=== PATIENT | female | born 1945 | race African-American/Black ===

== ENCOUNTER → 2016-11-02 | Day surgery (SDC) | payer OTHER ==
--- NOTE | 2016-11-03 15:18 | PATH ---
Surgical Pathology Report Patient Name: JOLENE CARDENAS Med. Rec. #: [id number] /Age/Gender: 1945 (Age: 71) / F Account: [id number] Location: [facility] RADIOLOGY U Taken: 11/02/2016 Received: 11/02/2016 Reported: 11/03/2016 Physicians: Belle Zavala Specimen(s) Received LEFT BREAST CORE BIOPSY 11 O'CLOCK, 16CM FN Clinical History US: probably benign; heterogenous mass, 11o'clock, left, 16 cm from nipple; probable lipoma Final Diagnosis BREAST, LEFT, 11:00, 6 CM FROM NIPPLE, US GUIDED CORE BIOPSY: BENIGN APPEARING MATURE ADIPOSE TISSUE WITH FOCI OF FAT NECROSIS AND SMALL FOCUS OF BENIGN GLANDULAR BREAST TISSUE (SEE COMMENT). Comment: The findings may represent lipoma with degenerative changes in proper clinical and imaging settings. Note: Immunohistochemical stain for Ae1/Ae3 keratin performed and interpreted [facility] is negative, supporting the interpretation above. Electronically Signed Srinivasa Khan M.D. Gross Description Received in formalin, labeled "left breast 11:00 16 cm FN" are multiple cylindrical fragments of salas-yellow and salas-pink soft tissue ranging from 0.2-1.5 cm in greatest dimension. Time to fixation: 2 min Formalin fixation time: ~6h AF/11/02/2016
== END | disposition home or self-care (01) ==
LOC: FRADUS-SUR 11:51
PROVIDERS: ATTEND Specialist
PROC: 0HBU3ZX Excision of Left Breast, Percutaneous Approach, Diagnostic (ICD-10-PCS; principal; 2016-11-02)
DX: N63 Unspecified lump in breast (principal); N64.1 Fat necrosis of breast
CPT/HCPCS: 19083; 87899; 88305-TC; 88342-TC; A4648

== ENCOUNTER 2018-04-08 14:17 | Inpatient (IN) | payer OTHER ==
--- NOTE | 2018-04-08 14:44 | PDOC ---
History of Present Illness - General Chief Complaint: Shortness of Breath Stated Complaint: DIFFICULTY BREATHING Time Seen by Provider: 04/08/18 14:38 History Source: Patient Exam Limitations: No Limitations Past History - Past Medical History Allergies/Adverse Reactions: Allergies Allergy/AdvReac Type Severity Reaction Status Date / Time No Known Allergies Allergy Verified 04/08/18 14:37 Home Medications: Ambulatory Orders Nateglinide [Starlix] 0 mg PO TID 11/12/13 Allopurinol [Zyloprim -] 100 mg PO DAILY #0 tablet 11/21/13 Amlodipine Besylate [Norvasc -] 5 mg PO DAILY #0 tablet 11/21/13 Atorvastatin Ca [Lipitor] 20 mg PO HS #0 tablet 11/21/13 Brimonidine Tartrate [Alphagan P 0.1% -] 1 drop OU BID #0 drops 11/21/13 Budesonide/Formeterol Fumarate [SYMBICORT 160/4.5mcg -] 2 inh IH BID #0 inhaler 11/21/13 Clopidogrel Bisulfate [Plavix -] 75 mg PO DAILY #0 tablet 11/21/13 Dorzolamide HCl [Trusopt 2% -] 1 drop OU BID #0 drops 11/21/13 Loratadine [Claritin -] 10 mg PO DAILY #0 tablet 11/21/13 Timolol 0.5% [Timoptic 0.5%] 1 drop OU BID #0 drops 11/21/13 Valsartan [Diovan] 320 mg PO DAILY #0 tablet 11/21/13 metFORMIN HCL [Glucophage -] 500 mg PO BID #14 tablet 11/21/13 Colchicine [Colcrys] 0.6 mg PO BID 11/15/14 Furosemide [Lasix -] 40 mg PO DAILY 11/15/14 Omeprazole [Prilosec (RX)] 20 mg PO DAILY 11/15/14 Tramadol HCl 50 mg PO BID 11/15/14 Albuterol 0.083% Nebulizer Elizabeth [Ventolin 0.083% Nebulizer Soln -] 1 neb NEB Q6H PRN 02/02/15 Acetaminophen [Tylenol .Extra-Strength -] 1,000 mg PO Q6H PRN #24 tablet Asthma: Yes COPD: No Diabetes: Yes HTN: Yes Hypercholesterolemia: Yes - Suicide/Smoking/Psychosocial Hx Smoking Status: No Smoking History: Never smoked Have you smoked in the past 12 months: No Number of Cigarettes Smoked Daily: 0 Information on smoking cessation initiated: No Hx Alcohol Use: No Drug/Substance Use Hx: No Substance Use Type: None Hx Substance Use Treatment: No *Physical Exam - Vital Signs Last Vital Signs Temp Pulse Resp BP Pulse Ox 97.4 F L 87 22 161/98 68 L 04/08/18 14:38 04/08/18 14:38 04/08/18 14:38 04/08/18 14:38 04/08/18 14:38 *DC/Admit/Observation/Transfer - Referrals Referrals: Sam Santana MD [Primary Care Provider] - - Patient Instructions - Post Discharge Activity
[2018-04-08] MEDS ORDERED: ALBUTEROL SO4 2.5/IPRATROPIUM 0.5 INH SOL 3 ML VIAL.NEB. NEB ONE ×4 (14:47→17:12)
[2018-04-08] MEDS: ALBUTEROL SO4 2.5/IPRATROPIUM 0.5 INH SOL 3 ML VIAL.NEB. NEB ONE (14:54)
[2018-04-08 15:30] LABS: ALLENS TEST POSITIVE; ARTERIAL BLD GAS O2 SATURATION 90.8 % (90-98.9); ARTERIAL BLOOD GAS BASE EXCESS 6.2 meq/l (-2-2); ARTERIAL BLOOD GAS PO2 60.7 mmHg (70-100)
[2018-04-08] MEDS ORDERED: MAGNESIUM SULF 50% (8.12 MEQ/2 ML-1 GM VIAL) IVPB ONE ×2 (16:05→17:14)
--- NOTE | 2018-04-08 16:07 | PDOC ---
Attending Attestation - Resident Resident Name: EnglishModesta - ED Attending Attestation I have performed the following: I have examined & evaluated the patient, The case was reviewed & discussed with the resident, I agree w/resident's findings & plan, Exceptions are as noted - HPI HPI: 04/08/18 16:08 Ms Duenas is a 72 yo F h/o COPD, hypertension, DM, asthma, gout who presented the the emergency department via EMS from [facility] due to shortness of breath and hypoxia. Pt states she has been short of breath for the past 2 days She was not sent to the ER Today, her shortness of breath worsened significantly she denies chest pain She denies palpitations She denies cough She denies nausea, vomiting, diarrhea She has noted lower extremity edema She denies calf pain PSH: x1, breast lump removed (benign), rotator cuff repair FamHx: Grandmother, mother and sister have hx of breast CA Social: Denies smoking and alcohol use - Physicial Exam PE: 04/08/18 16:10 GENERAL: The patient is in respiratory distress, morbidly obese, on CPAP HEAD: Normal EYES: PERRLA, EOMI, sclera anicteric, conjunctiva clear. ENT: Ears normal, nares patent, oropharynx clear without exudates. Moist mucous membranes. NECK: Normal range of motion, supple without lymphadenopathy, JVD, or masses. LUNGS: POOR AIR MOVEMENT HEART: Tachycardiac, no murmur appreciated ABDOMEN: Soft, nontender, normoactive bowel sounds. No guarding, no rebound. No masses palpable. EXTREMITIES: Normal range of motion, no edema. No clubbing or cyanosis. No erythema, or tenderness. NEUROLOGICAL: Cranial nerves II through XII grossly intact. Normal speech. No focal neurological deficits. SKIN: sacral ulcer - Medical Decision Making 04/08/18 16:13 EKG: Afib rate of 118 bpm, axis nml, intervals nml, no ST elevations or depressions, lateral t wave flattening 04/08/18 16:22 Pt presents with acute shortness of breath Differential diagnosis is broad and includes: COPD exacerbation CHF ACS PE Pt given Solumedrol and Duonebs Pt already given Lasix IM Pending CMP Would like to check CMP 04/08/18 16:24 Laboratory Tests 02/10/15 04/08/18 04/08/18 19:55 15:10 15:40 WBC 6.4 8.7 D Hgb 11.5 11.3 Hct 36.8 36.1 Plt Count 215 287 D ABG pH 7.40 ABG pCO2 at Pt Temp 52.0 H ABG pO2 at Pt Temp 60.7 L ABG HCO3 31.6 H 04/08/18 16:48 Laboratory Tests 02/10/15 04/08/18 19:55 15:40 Sodium 138 Potassium 4.5 Chloride 97 L Carbon Dioxide 32 BUN 35 H D 55 H Creatinine 1.8 H 2.1 H Random Glucose 243 H 176 H Pt CXR: Congestive changes Pleural effusion Possible infiltrate Will do: Solumedrol/Duoneb - Treat COPD ABX - ? possible infiltrative process CHF - given Lasix 40mg IM already, Creatinine slightly elevated, consider more lasix? PE - pt is immobile, Obese, has Afib but is not on anticoagulation (unclear why not), will need to place on Non cardiac Tele vs. ICU 04/08/18 17:[address] Welch Will place in the ICU Clinical impression: Shortness or breath, initial presentation Discharge Disposition - Diagnosis Respiratory distress, Acute exacerbation of COPD with asthma, CHF (congestive heart failure), COPD exacerbation, CHF exacerbation, Pneumonia, CKD (chronic kidney disease) - Discharge Dispostion Condition at time of disposition: Guarded Last Admission D/C Date: 11/21/13 Decision to Admit order: Yes - Referrals - Patient Instructions - Post Discharge Activity Critical Care Time/MDM Note Total Critical Care Time: 60 Critical Care Statement: The care of this patient involved high complexity decision making to prevent further life threatening deterioration of the patient 's condition and/or to evaluate & treat vital organ system(s) failure or risk of failure.
[2018-04-08 16:09] LABS: BASO % 0.5 % (0-2.0); EOS % 0.8 % (0-4.5); HEMATOCRIT 36.1 % (32.4-45.2); HEMOGLOBIN 11.3 GM/dL (10.7-15.3); LYMPH % 4.7 % (8-40); MCHC 31.2 g/dl (32.0-36.0); MEAN CELL VOLUME 96.3 fl (80-96); MEAN PLT VOLUME 10.4 fl (7.5-11.1); MONO % 1.4 % (3.8-10.2); NEUT % 92.6 % (42.8-82.8); PLATELET COUNT 287 K/MM3 (134-434); RBC 3.75 M/mm3 (3.60-5.2); RDW 17.1 % (11.6-15.6); WHITE BLOOD COUNT 8.7 K/mm3 (4.0-10.0)
--- NOTE | 2018-04-08 16:11 | PDOC ---
History of Present Illness - General Chief Complaint: Shortness of Breath Stated Complaint: DIFFICULTY BREATHING Time Seen by Provider: 04/08/18 14:38 History Source: Patient, EMS, Shelter Records Exam Limitations: No Limitations - History of Present Illness Initial Comments: This is a 72 YOF with h/o CHF, COPD, home O2 use, and morbid obesity who p/w 2- 3 days of worsening SOB acutely worse this afternoon which prompted her care facility to call 911 for transport to the ED. EMS was unable to get a good waveform to measure her pulse oxygenation on their arrival on scene. She was given breathing treatments, placed on CPAP, and given Decadron IM this afternoon with incomplete relief. The patient notes she has recently had worsened chronic leg swelling, as well as worsened chronic inability to lay flat 2/2 SOB. She denies any fever, chills, nausea, vomiting, chest pain, abdominal pain, or other symptoms. Past History - Past Medical History Allergies/Adverse Reactions: Allergies Allergy/AdvReac Type Severity Reaction Status Date / Time No Known Allergies Allergy Verified 04/08/18 14:37 Home Medications: Ambulatory Orders Acetaminophen [Pain Relief] 650 mg PO ASDIR 04/08/18 Acetylcysteine Po/INH 20% [Mucomyst 20 Oral / INH Use Only*] 1 ml NEB ASDIR 07/18 Albuterol 2.5/Ipratropium 0.5 [Duoneb -] 1 amp NEB QID PRN 04/08/18 Budesonide/Formeterol Fumarate [SYMBICORT 160/4.5mcg -] 2 inh IH ASDIR 04/08/18 Diltiazem [Cardizem -] 60 mg PO ASDIR 04/08/18 Famotidine [Pepcid] 20 mg PO DAILY 04/08/18 Furosemide [Lasix] 80 mg PO DAILY 04/08/18 Mupirocin Ointment [Bactroban] 1 applic TP ASDIR 04/08/18 Nystatin/Triamcin [Nystatin-Triamcinolone Cream] 1 applic TP ASDIR 04/08/18 Polyethylene Glycol 3350 [Smoothlax] 17 gm PO ASDIR 04/08/18 Sennosides [Senno] 2 tab PO DAILY 04/08/18 Asthma: Yes COPD: No Diabetes: Yes HTN: Yes Hypercholesterolemia: Yes - Suicide/Smoking/Psychosocial Hx Smoking Status: No Smoking History: Never smoked Have you smoked in the past 12 months: No Number of Cigarettes Smoked Daily: 0 Information on smoking cessation initiated: No Hx Alcohol Use: No Drug/Substance Use Hx: No Substance Use Type: None Hx Substance Use Treatment: No Review of Systems - Review of Systems Able to Perform ROS?: Yes Constitutional: No: Chills, Fever, Unexplained wgt Loss HEENTM: No: Nose Congestion, Throat Pain Respiratory: Yes: Cough, Shortness of Breath, SOB with Exertion Cardiac (ROS): Yes: Edema. No: Chest Pain, Palpitations ABD/GI: No: Constipated, Diarrhea, Nausea, Vomiting : No: Burning, Dysuria Musculoskeletal: No: Back Pain, Neck Pain Integumentary: No: Bruising, Rash Neurological: No: Headache, Numbness, Tingling, Weakness, Dizziness Endocrine: No: Unexplained Weight Gain, Unexplained Weight Loss *Physical Exam - Vital Signs Last Vital Signs Temp Pulse Resp BP Pulse Ox 97.4 F L 87 22 161/98 95 04/08/18 14:38 04/08/18 14:38 04/08/18 14:38 04/08/18 14:38 04/08/18 14:50 - Physical Exam General Appearance: Yes: Nourished, Mild Distress, Obese, Other (on BiPAP, speaking in 1-2 word sentences, tachypneic, a/ox4 and appropriate answers to questions) HEENT: positive: EOMI, NICKI, Normal ENT Inspection, Normal Voice, Hearing Grossly Normal. negative: Scleral Icterus (R), Scleral Icterus (L), Nasal Congestion Neck: positive: Trachea midline, Supple. negative: Tender, Rigid Respiratory/Chest: positive: Respiratory Distress, Accessory Muscle Use, Labored Respiration, Rapid RR, Wheezing (faint expiratory), Other (on BiPAP). negative: Rhonchi, Stridor Cardiovascular: positive: S1, S2, Edema (3+ pitting BLE), Murmur (1/6 systolic ejection), Irregularly Irregular, Other (distant heart sounds) Gastrointestinal/Abdominal: positive: Normal Bowel Sounds, Soft, Protuberent. negative: Tender, Organomegaly, Pulsatile Mass, Guarding Musculoskeletal: positive: Normal Inspection. negative: Decreased Range of Motion, Vertebral Tenderness Extremity: positive: Normal Capillary Refill, Normal Inspection, Normal Range of Motion. negative: Tender, Cyanosis Integumentary: positive: Normal Color, Dry, Warm. negative: Erythema, Rash, Bruising Neurologic: positive: road cleaner II-XII NML intact (grossly), Fully Oriented, Alert, Normal Mood/Affect, Normal Response, Motor Strength 5/5. negative: Facial Droop , Confused, Disoriented ED Treatment Course - LABORATORY CBC & Chemistry Diagram: 04/08/18 15:40 04/08/18 15:40 - ADDITIONAL ORDERS Additional order review: Laboratory Results 04/08/18 15:10 Anticoagulation Therapy No Result Required. Puncture Site Right radial ABG pH 7.40 ABG pCO2 at Pt Temp 52.0 H ABG pO2 at Pt Temp 60.7 L ABG HCO3 31.6 H ABG O2 Sat (Measured) 90.8 ABG O2 Content 13.5 L ABG Base Excess 6.2 H Lam Test Positive O2 Delivery Device No Result Required. Oxygen Flow Rate Yes Vent Mode No Result Required. Vent Rate No Result Required. Mechanical Rate No Result Required. Pressure Support Vent No Result Required. - Medications Given in the ED: ED Medications Discontinued Medications Generic Name Dose Route Start Last Admin Trade Name Freq PRN Reason Stop Dose Admin Albuterol/Ipratropium 1 amp 04/08/18 14:47 04/08/18 14:54 Duoneb - NEB 04/08/18 14:48 1 amp ONCE ONE Administration Albuterol/Ipratropium 1 amp 04/08/18 14:47 04/08/18 15:20 Duoneb - NEB 04/08/18 14:48 1 amp ONCE ONE Administration Medical Decision Making - Medical Decision Making Patient with h/o CHF, COPD, and morbid obesity who p/w SOB, cough, orthopnea same as their prior CHF, as well as wheezing like their prior COPD. Initial Vital Signs Temp Pulse Resp BP Pulse Ox 97.4 F L 87 22 161/98 68 L 04/08/18 14:38 04/08/18 14:38 04/08/18 14:38 04/08/18 14:38 04/08/18 14:38 Exam: Morbid obesity, on BiPAP, tachypnea, moderate respiratory distress, poor air movement diffusely, faint expiratory wheezes, resistant heart sounds DDX IBNLT: CHF, pulmonary edema, COPD, asthma, other lung disease, PNA/ bronchitis, anemia, ACS, pericarditis, tamponade, AD, PE, PTX, allergic reaction , malignancy (e.g. causing pericardial effusion or vascular shunt), other infection, pulmonary HTN, etc. W/U ordered: CBCD CMP Mg Phos Troponin CK CKMB BNP Blood Gas UA UCx EKG CXR TX ordered: NTG SL then ggt, Lasix IV push, O2, BiPAP, Pt positioned with head of bed up Important to check Phos as severe hypophos can cause decr contractility and ventilation and rhabdo. EKG: CXR: cardiomegaly, vascular congestion, left basilar atelectasis versus infiltrate. Ordered is renal dose 15 mg/kg vancomycin, 4.5 Zosyn, to be given after BCx. Laboratory Tests 04/08/18 04/08/18 04/08/18 15:10 15:40 15:40 WBC 8.7 D RBC 3.75 Hgb 11.3 Hct 36.1 MCV 96.3 H MCH 30.0 MCHC 31.2 L RDW 17.1 H Plt Count 287 D MPV 10.4 Absolute Neuts (auto) 8.1 Total Counted 100 Neutrophils % 92.6 H D Neutrophils % (Manual) 91.0 H Lymphocytes % 4.7 L D Lymphocytes % (Manual) 7.0 L Monocytes % 1.4 L D Monocytes % (Manual) 2 L Eosinophils % 0.8 D Basophils % 0.5 Nucleated RBC % 0 Differential Comment Man diff performed Platelet Estimate Adequate Platelet Comment Polychromasia 1+ Anisocytosis 1+ Macrocytosis 1+ PT with INR 11.80 INR 1.04 PTT (Actin FS) 28.9 Anticoagulation Therapy No Result Required. Puncture Site Right radial ABG pH 7.40 ABG pCO2 at Pt Temp 52.0 H ABG pO2 at Pt Temp 60.7 L ABG HCO3 31.6 H ABG O2 Sat (Measured) 90.8 ABG O2 Content 13.5 L ABG Base Excess 6.2 H Lam Test Positive O2 Delivery Device No Result Required. Oxygen Flow Rate Yes Vent Mode No Result Required. Vent Rate No Result Required. Mechanical Rate No Result Required. Pressure Support Vent No Result Required. Sodium Potassium Chloride Carbon Dioxide Anion Gap BUN Creatinine Creat Clearance w eGFR Random Glucose Lactic Acid Calcium Total Bilirubin AST ALT Alkaline Phosphatase Troponin I Total Protein Albumin 04/08/18 04/08/18 04/08/18 15:40 15:40 15:40 WBC RBC Hgb Hct MCV MCH MCHC RDW Plt Count MPV Absolute Neuts (auto) Total Counted Neutrophils % Neutrophils % (Manual) Lymphocytes % Lymphocytes % (Manual) Monocytes % Monocytes % (Manual) Eosinophils % Basophils % Nucleated RBC % Differential Comment Platelet Estimate Platelet Comment Polychromasia Anisocytosis Macrocytosis PT with INR INR PTT (Actin FS) Anticoagulation Therapy Puncture Site ABG pH ABG pCO2 at Pt Temp ABG pO2 at Pt Temp ABG HCO3 ABG O2 Sat (Measured) ABG O2 Content ABG Base Excess Lam Test O2 Delivery Device Oxygen Flow Rate Vent Mode Vent Rate Mechanical Rate Pressure Support Vent Sodium 138 Potassium 4.5 Chloride 97 L Carbon Dioxide 32 Anion Gap 9 BUN 55 H Creatinine 2.1 H Creat Clearance w eGFR 23.09 Random Glucose 176 H Lactic Acid 1.6 Calcium 8.8 Total Bilirubin 0.9 D AST 27 ALT 21 Alkaline Phosphatase 95 Troponin I < 0.02 Total Protein 7.7 Albumin 3.4 Vital Signs Temperature 97.4 F L 04/08/18 14:38 Pulse Rate 117 H 04/08/18 16:38 Respiratory Rate 19 04/08/18 16:38 Blood Pressure 118/78 04/08/18 16:38 O2 Sat by Pulse Oximetry (%) 95 04/08/18 16:38 Reassessment: Patient's breathing remains shallow, poor air movement, but no distress and much improved respiratory distress, remains on BiPAP. The Pt is unsafe for discharge at this time. They require further hospital observation, workup, and treatment. Patient needs IV meds 2/2 likely bowel edema as PO medications likely less effective. [facility] sent to [facility] for admission. Dr. Higgins spoke with Dr. Fitzgerald who accepts ICU placement. Dr. Gandhi spoke with Dr. Candis pulido for hospitalist admitting to Dr. Raeann lynn. Decision to Admit order placed. *DC/Admit/Observation/Transfer Diagnosis at time of Disposition: Respiratory distress, Acute exacerbation of COPD with asthma, CHF (congestive heart failure), COPD exacerbation CHF exacerbation Qualifiers: Heart failure type: unspecified Qualified Code(s): I50.9 - Heart failure, unspecified Pneumonia Qualifiers: Pneumonia type: due to unspecified organism Laterality: unspecified laterality Lung location: unspecified part of lung Qualified Code(s): J18.9 - Pneumonia, unspecified organism CKD (chronic kidney disease) Qualifiers: Chronic kidney disease stage: unspecified stage Qualified Code(s): N18.9 - Chronic kidney disease, unspecified - Discharge Dispostion Condition at time of disposition: Guarded Decision to Admit order: Yes - Referrals Referrals: Sam Santana MD [Primary Care Provider] - - Patient Instructions - Post Discharge Activity
[2018-04-08] MEDS ORDERED: methylPREDNISolone NA SUCC 125 MG/2 ML VIAL IVPB ONE (16:23)
[2018-04-08 16:24] LABS: INR 1.04 (0.82-1.09); PROTHROMBIN TIME (PATIENT) 11.8 SEC (9.7-13.0)
[2018-04-08 16:26] LABS: ACTIVATED PTT 28.9 SECONDS (26.9-34.4)
[2018-04-08 16:35] LABS: ALBUMIN 3.4 g/dl (3.4-5.0); ALK PHOS 95 U/L (45-117); ANION GAP 9 (8-16); BILIRUBIN,TOTAL 0.9 mg/dL (0.2-1.0); BLOOD UREA NITROGEN 55 mg/dL (7-18); CALCIUM 8.8 mg/dL (8.5-10.1); CHLORIDE 97 mmol/L (98-107); CO2 32 mmol/L (21-32); CREATININE 2.1 mg/dL (0.55-1.02); GLUCOSE,RANDOM 176 mg/dL (74-106); SGPT/ALT 21 U/L (12-78); SODIUM 138 mmol/L (136-145); TOT PROT 7.7 g/dl (6.4-8.2)
[2018-04-08 16:38] LABS: POTASSIUM 4.5 mmol/L (3.5-5.1); SGOT/AST 27 U/L (15-37)
[2018-04-08] MEDS ORDERED: NITROGLYCERIN 25MG/D5W 250ML 25 MG/250 ML ML IVPB SCH (17:00)
[2018-04-08] MEDS ORDERED: PIPERACILLIN/TAZOB 4.5 GM 4.5 GM in DEXTROSE 5%-WATER 100 ML IVPB ONE (17:05)
[2018-04-08] MEDS ORDERED: VANCOMYCIN 1,500 MG in DEXTROSE 5%-WATER - 250 ML IVPB ONE (17:05)
[2018-04-08] MEDS ORDERED: methylPREDNISolone NA SUCC 125 MG/2 ML VIAL ONE (17:12)
[2018-04-08] MEDS ORDERED: PIPERACILLIN/TAZOB 4.5 GM 4.5 GM/100 ML BAG IVPB ONE (17:12)
[2018-04-08 17:18] LABS: ANISOCYTOSIS 1+; MACROCYTOSIS 1+; PLATELET ESTIMATE ADEQUATE
[2018-04-08] MEDS ORDERED: FUROSEMIDE 40 MG/4 ML INJECTABLE VIAL IVPUSH ONE ×2 (17:24→20:45)
[2018-04-08] MEDS ORDERED: dilTIAZem HCL 50 MG/10 ML - 10 ML VIAL IVPUSH ONE (17:28)
[2018-04-08] MEDS ORDERED: VANCOMYCIN 1,500 MG in DEXTROSE 5%-WATER - 500 ML IVPB ONE (17:29)
[2018-04-08] MEDS ORDERED: FUROSEMIDE 40 MG/4 ML INJECTABLE VIAL ONE (17:42)
[2018-04-08] MEDS ORDERED: dilTIAZem HCL 125 MG/25 ML - 25 ML VIAL ONE (17:43)
--- NOTE | 2018-04-08 20:29 | PN ---
Teaching Attending Note Name of Resident: Chet Rose ATTENDING PHYSICIAN STATEMENT I saw and evaluated the patient. I reviewed the resident's note and discussed the case with the resident. I agree with the resident's findings and plan as documented. SUBJECTIVE: Patient is a 72 year old woman with history of CHF (?), COPD, home O2 use, and morbid obesity, Afib (not on AC), CKD with recent hemodialysis at [facility] who presents from the [facility] with 2-3 days of worsening SOB. At the [facility] she was given breathing treatments, placed on CPAP, and given lasic and Decadron IM with incomplete relief. The patient notes she has recently had worsened chronic leg swelling, as well as worsened chronic inability to lay flat due to SOB. She denies any fever, chills, nausea, vomiting, chest pain, abdominal pain, or other symptoms. In the ER ABG showed hypoxia with hypercapnea and she was started on BIPAP and got 40 mg IV lasix. OBJECTIVE: Obese and in respiratory distress on BIPAP Vital Signs Period Temp Pulse Resp BP Sys/Stratton Pulse Ox Last 24 Hr 97.4 F 87-117 19-28 118-161/78-103 68-95 HEENT: No Jaundice, eye redness or discharge, PERRLA, EOMI. Normocephalic, atraumatic. External ears are normal and hearing is grossly intact. No nasal discharge. Neck: Supple, nontender. No palpable adenopathy or thyromegaly. No JVD Chest: Generally decreased breath sounds. Heart: Irregular. No S3, rub or murmur Abdomen: Not distended, soft, nontender and no HSM. No rebound or guarding. Normoactive bowel sounds. Ext: Peripheral pulses intact. Bilateral leg edema. Skin: Warm and dry. No petechiae, rash or ecchymosis. Neuro: Alert. Oriented x3. CN 2-12 grossly intact. Sensation grossly intact in all four extremities and DTR are symmetric. Home Medications Medication Instructions Recorded Acetaminophen [Pain Relief] 650 mg PO ASDIR 04/08/18 Acetylcysteine Po/INH 20% 1 ml NEB ASDIR 04/08/18 [Mucomyst 20 Oral / INH Use Only*] Albuterol 2.5/Ipratropium 0.5 1 amp NEB QID PRN 04/08/18 [Duoneb -] Budesonide/Formeterol Fumarate 2 inh IH ASDIR 04/08/18 [SYMBICORT 160/4.5mcg -] Diltiazem [Cardizem -] 60 mg PO ASDIR 04/08/18 Famotidine [Pepcid] 20 mg PO DAILY 04/08/18 Furosemide [Lasix] 80 mg PO DAILY 04/08/18 Mupirocin Ointment [Bactroban] 1 applic TP ASDIR 04/08/18 Nystatin/Triamcin 1 applic TP ASDIR 04/08/18 [Nystatin-Triamcinolone Cream] Polyethylene Glycol 3350 17 gm PO ASDIR 04/08/18 [Smoothlax] Sennosides [Senno] 2 tab PO DAILY 04/08/18 Abnormal Lab Results 04/08/18 04/08/18 04/08/18 15:10 15:40 15:40 MCV 96.3 H MCHC 31.2 L RDW 17.1 H Neutrophils % 92.6 H D Neutrophils % (Manual) 91.0 H Lymphocytes % 4.7 L D Lymphocytes % (Manual) 7.0 L Monocytes % 1.4 L D Monocytes % (Manual) 2 L ABG pCO2 at Pt Temp 52.0 H ABG pO2 at Pt Temp 60.7 L ABG HCO3 31.6 H ABG O2 Content 13.5 L ABG Base Excess 6.2 H Chloride 97 L BUN 55 H Creatinine 2.1 H Random Glucose 176 H ASSESSMENT AND PLAN: 1. COPD exacerbation - This appears to be the dominant reason for her respiratory distress, but it is likely that she also has CHF exacerbation due to salt and water retention induced by hypercarbia. Will treat COPD with Duoneb , Dulera, Spiriva, Solumedrol, Rocephin, Azithromycin and continue BIPAP. CXR shows cardiomegaly with left side pleural effusion - will get recent records from [facility] to ascertain if the effusion is new and then decide how aggressive the work up should be for the effusion - if it persists after diuresis. For CHF exacerbation, will give appropriate dose of IV lasix to achieve adequate diuresis in view of CKD, obtain an ECHO, get daily weights, ensure low salt diet and consult cardiology. A hernandez concern is that she has major risk factors for pulmonary embolism and is not on anticoagulation for Afib. Will get leg doppler to rule out DVT and if her respiratory function fails to improve with current measures, then a V/Q scan should be obtained. 2. Afib - Not on AC reportedly due to recent ?GI bleeding. Will seek cardiology input and get more info from her PCP. 3. CKD - Etiology unclear, though she has multiple risk factors. Nephrology consult for further workup. 4. DM? - Says she used to be on insulin. Will get HbA1c and use sliding scale insulin coverage. Need for outpatient eye care and foot care stressed. 5. DVT prophylaxis - Heparin 5000u sq tid 6. Advance directives - Full code
[2018-04-08] MEDS ORDERED: dilTIAZem HCL 50 MG/10 ML - 10 ML VIAL IVPUSH PRN (20:35)
--- NOTE | 2018-04-08 20:41 | HP ---
CHIEF COMPLAINT: SOB PCP:Floridalma Wolf at [facility] Cardio: Laith Bernabe at [facility] HISTORY OF PRESENT ILLNESS: Pt is a 72 y/o F poor historian with PMH COPD, Asthma, CHF, GI bleed (in early February), Afib (per pt was on Plavix until a recent GI bleed at [facility]), CKD who presents to ED sent from [place] for SOB. Pt states she was given put on CPAP and given Lasix at [place] [facility] prior to being sent here. She believes this episode is following some change in her medications, though she is not sure what change was made. She complains of 3 days of progressively worsening SOB despite introduction of CPAP and administration of Lasix. Denies palpitations, chest pain, fever, chills, cough. She has had many epsiodes like this one in the past. Pt also notes she had an episode of nausea 1 day ago. No vomiting at that time. Pt states she has chronic constipation and her last BM was 2 days ago. Pt states she was recently treated at the beginning of February at [facility]. She had bright red bloody vomit (could not quantify) and required a blood transfusion. She does not know what specifically was done or how many PRBCs she got, but she states she had a syncopal epsiode AFTER received the blood. ER course was notable for: (1) No fever, no WBC, ABG: ph 7.4, pCO2 52, pO2 60, HCO3 31 (HCO3 on BMP 32) (2) CXR with L effusion and ? consolidation, cardiomegally, wide mediastinum (3) Duonebs, solumedrol, lasix, cardizem Recent Travel: denies PAST MEDICAL HISTORY: Asthma, COPD, CKD, CHF, GI bleed Afib, ? IDDM, Arthritis, DJD, Gout PAST SURGICAL HISTORY: Social History: Smoking: snf second hand smoke Alcohol: denies Drugs: denies Family History: Allergies No Known Allergies Allergy (Verified 04/08/18 14:37) HOME MEDICATIONS: Home Medications Medication Instructions Recorded Acetaminophen [Pain Relief] 650 mg PO ASDIR 04/08/18 Acetylcysteine Po/INH 20% 1 ml NEB ASDIR 04/08/18 [Mucomyst 20 Oral / INH Use Only*] Albuterol 2.5/Ipratropium 0.5 1 amp NEB QID PRN 04/08/18 [Duoneb -] Budesonide/Formeterol Fumarate 2 inh IH ASDIR 04/08/18 [SYMBICORT 160/4.5mcg -] Diltiazem [Cardizem -] 60 mg PO ASDIR 04/08/18 Famotidine [Pepcid] 20 mg PO DAILY 04/08/18 Furosemide [Lasix] 80 mg PO DAILY 04/08/18 Mupirocin Ointment [Bactroban] 1 applic TP ASDIR 04/08/18 Nystatin/Triamcin 1 applic TP ASDIR 04/08/18 [Nystatin-Triamcinolone Cream] Polyethylene Glycol 3350 17 gm PO ASDIR 04/08/18 [Smoothlax] Sennosides [Senno] 2 tab PO DAILY 04/08/18 REVIEW OF SYSTEMS CONSTITUTIONAL: Absent: fever, chills, HEENT: Absent: rhinorrhea, nasal congestion, throat pain, CARDIOVASCULAR: peripheral edema Absent: chest pain, syncope, palpitations RESPIRATORY: shortness of breath, wheezing Absent: cough, hemoptysis GASTROINTESTINAL:constipation Absent: abdominal pain, abdominal distension, nausea, vomiting, diarrhea, , melena, hematochezia GENITOURINARY: Absent: dysuria, frequency MUSCULOSKELETAL: arthralgia Absent: myalgia, , joint swelling HEMATOLOGIC/IMMUNOLOGIC: Absent: easy bleeding, easy bruising, lymphadenopathy, frequent infections NEUROLOGIC: Absent: headache, focal deficits PHYSICAL EXAMINATION Vital Signs - 24 hr 04/08/18 04/08/18 04/08/18 14:38 14:50 16:38 Temperature 97.4 F L Pulse Rate 87 Pulse Rate [ 117 H Apical] Respiratory 22 19 Rate Blood Pressure 161/98 Blood Pressure 118/78 [Right Arm] O2 Sat by Pulse 68 L 95 95 Oximetry (%) 04/08/18 04/08/18 18:38 19:50 Temperature Pulse Rate Pulse Rate [ 106 H Apical] Respiratory 28 H Rate Blood Pressure Blood Pressure 152/103 [Right Arm] O2 Sat by Pulse 93 L 95 Oximetry (%) Gen: obese, resp distress on Bipap HEENT: NCAT, perrla, eomi Neck: supple, no stridor. Pulm: diffuse wheezing, prolonged expiratory phase, poor inspiratory capacity Card: distant heart sounds, rapid, irregular, no obvious m/r/g appreciated Abd: soft nontender, Gutierrez's neg, + BS Ext: 2+ pitting edema b/l, intact pulses Neuro: no focal deficits. Strength and sensation intact throughout Laboratory Results - last 24 hr 04/08/18 04/08/18 04/08/18 15:10 15:40 15:40 WBC 8.7 D RBC 3.75 Hgb 11.3 Hct 36.1 MCV 96.3 H MCH 30.0 MCHC 31.2 L RDW 17.1 H Plt Count 287 D MPV 10.4 Absolute Neuts (auto) 8.1 Total Counted 100 Neutrophils % 92.6 H D Neutrophils % (Manual) 91.0 H Lymphocytes % 4.7 L D Lymphocytes % (Manual) 7.0 L Monocytes % 1.4 L D Monocytes % (Manual) 2 L Eosinophils % 0.8 D Basophils % 0.5 Nucleated RBC % 0 Differential Comment Man diff performed Platelet Estimate Adequate Platelet Comment Polychromasia 1+ Anisocytosis 1+ Macrocytosis 1+ PT with INR 11.80 INR 1.04 PTT (Actin FS) 28.9 Anticoagulation Therapy No Result Required. Puncture Site Right radial ABG pH 7.40 ABG pCO2 at Pt Temp 52.0 H ABG pO2 at Pt Temp 60.7 L ABG HCO3 31.6 H ABG O2 Sat (Measured) 90.8 ABG O2 Content 13.5 L ABG Base Excess 6.2 H Lam Test Positive O2 Delivery Device No Result Required. Oxygen Flow Rate Yes Vent Mode No Result Required. Vent Rate No Result Required. Mechanical Rate No Result Required. Pressure Support Vent No Result Required. Sodium Potassium Chloride Carbon Dioxide Anion Gap BUN Creatinine Creat Clearance w eGFR Random Glucose Lactic Acid Calcium Total Bilirubin AST ALT Alkaline Phosphatase Troponin I Total Protein Albumin Blood Type Antibody Screen 04/08/18 04/08/18 04/08/18 15:40 15:40 15:40 WBC RBC Hgb Hct MCV MCH MCHC RDW Plt Count MPV Absolute Neuts (auto) Total Counted Neutrophils % Neutrophils % (Manual) Lymphocytes % Lymphocytes % (Manual) Monocytes % Monocytes % (Manual) Eosinophils % Basophils % Nucleated RBC % Differential Comment Platelet Estimate Platelet Comment Polychromasia Anisocytosis Macrocytosis PT with INR INR PTT (Actin FS) Anticoagulation Therapy Puncture Site ABG pH ABG pCO2 at Pt Temp ABG pO2 at Pt Temp ABG HCO3 ABG O2 Sat (Measured) ABG O2 Content ABG Base Excess Lam Test O2 Delivery Device Oxygen Flow Rate Vent Mode Vent Rate Mechanical Rate Pressure Support Vent Sodium 138 Potassium 4.5 Chloride 97 L Carbon Dioxide 32 Anion Gap 9 BUN 55 H Creatinine 2.1 H Creat Clearance w eGFR 23.09 Random Glucose 176 H Lactic Acid 1.6 Calcium 8.8 Total Bilirubin 0.9 D AST 27 ALT 21 Alkaline Phosphatase 95 Troponin I Total Protein 7.7 Albumin 3.4 Blood Type O POSITIVE Antibody Screen Negative 04/08/18 15:40 WBC RBC Hgb Hct MCV MCH MCHC RDW Plt Count MPV Absolute Neuts (auto) Total Counted Neutrophils % Neutrophils % (Manual) Lymphocytes % Lymphocytes % (Manual) Monocytes % Monocytes % (Manual) Eosinophils % Basophils % Nucleated RBC % Differential Comment Platelet Estimate Platelet Comment Polychromasia Anisocytosis Macrocytosis PT with INR INR PTT (Actin FS) Anticoagulation Therapy Puncture Site ABG pH ABG pCO2 at Pt Temp ABG pO2 at Pt Temp ABG HCO3 ABG O2 Sat (Measured) ABG O2 Content ABG Base Excess Lam Test O2 Delivery Device Oxygen Flow Rate Vent Mode Vent Rate Mechanical Rate Pressure Support Vent Sodium Potassium Chloride Carbon Dioxide Anion Gap BUN Creatinine Creat Clearance w eGFR Random Glucose Lactic Acid Calcium Total Bilirubin AST ALT Alkaline Phosphatase Troponin I < 0.02 Total Protein Albumin Blood Type Antibody Screen ASSESSMENT/PLAN: Pt is a 72 Y/o F with PMH COPD, Asthma, CHF, GI bleed (in early February), Afib (per pt was on Plavix until a recent GI bleed at [facility]), CKD who presents to ED sent from [place] for SOB. She is being admitted to the ICU for resp distress , acute hypercarbic hypocapnic resp failure and chf. #Acute hypoxic hypercarbic respiratory failure -2/2 COPD exacerbation -complicated by Asthma -? etiology. ? PNA -On NIPPV at 12, 5, 70% FiO2 -Got duonebs in ED, and solu-medrol, Vanc, zosyn -Duonebs q4 ashley x 24hrs -Spiriva -Solu-medrol 40 q 6 -Azithromycin -Rocephin -NIPPV #? PNA vs Effusion -Diuresis with lasix -No fever/WBC for now -monitor for improvement #CHF exacerbation -Chronic edema -2+ pitting edema at this time -pleural effusion ? age -lasix -monitor #Afib -Cardizem PRN for HR > 120. Hold for SBP < 90 #MARIUM on CKD -unknown etiolgoy -monitor #IDDM ? -BGM -ISS #FEN -not on fluid -lytes wnl -NPO while on NIPPV #PPx -Hep Sub Q #Dispo -Admit to ICU Chet Rose MD PGY-1 Visit type - Emergency Visit Emergency Visit: Yes ED Registration Date: 04/08/18 Care time: The patient presented to the Emergency Department on the above date and was hospitalized for further evaluation of their emergent condition. - New Patient This patient is new to me today: Yes Date on this admission: 04/11/18 - Critical Care Critical Care patient: No Hospitalist Screening - Colonoscopy Questionnaire Colonoscopy Questionnaire: Colonoscopy Questionnaire - Patient: 50 - 75 years old and never had a screening colonoscopy: Unknown History of colon or rectal polyps, or CA: Unknown History of IBD, Crohn's disease or UC: Unknown History of abdominal radiation therapy as a child: Unknown - Relative: 1 with colon or rectal CA, or polyps at age 60 or younger: Unknown Colon or rectal CA diagnosed at age 45 or younger: Unknown Multiple relatives with colon or rectal CA: Unknown - Outcome: Screening Result: Negative Screen
[2018-04-08] MEDS: ALBUTEROL SO4 2.5/IPRATROPIUM 0.5 INH SOL 3 ML VIAL.NEB. NEB SCH (21:00)
[2018-04-08] MEDS: HEPARIN NA (PORCINE) 5,000 UNITS/ML 1ML VIAL SQ SCH (21:18)
[2018-04-08] MEDS: TIOTROPIUM BROMIDE 18 MCG CAPSULES IH SCH (21:27)
[2018-04-08] MEDS: CHLORHEXIDINE GLUCONATE 4% CLEANSER FOR DECOLONIZATION TP SCH (21:28)
[2018-04-08] MEDS: MUPIROCIN 2% TOPICAL OINTMENT FOR DECOLONIZATION NS SCH (21:28)
[2018-04-08] MEDS: methylPREDNISolone NA SUCC 40 MG/1 ML VIAL IVPUSH SCH (21:28)
[2018-04-09] MEDS: INSULIN SLIDING SCALE (NOVOLOG) 1 VIAL SQ SCH ×5 (00:22→23:00)
[2018-04-09] MEDS ORDERED: dilTIAZem HCL 60 MG TABLET (FP) PO PRN (00:38)
[2018-04-09] MEDS: methylPREDNISolone NA SUCC 40 MG/1 ML VIAL IVPUSH SCH ×4 (02:13→21:04)
[2018-04-09] MEDS: HEPARIN NA (PORCINE) 5,000 UNITS/ML 1ML VIAL SQ SCH ×3 (06:24→21:19)
[2018-04-09 06:33] LABS: BASO % 0.2 % (0-2.0); EOS % 0.6 % (0-4.5); HEMATOCRIT 34.4 % (32.4-45.2); LYMPH % 13.4 % (8-40); MCH 30.4 pg (25.7-33.7); MCHC 32.1 g/dl (32.0-36.0); MEAN CELL VOLUME 94.8 fl (80-96); MEAN PLT VOLUME 10.4 fl (7.5-11.1); MONO % 0.9 % (3.8-10.2); NEUT % 84.9 % (42.8-82.8); PLATELET COUNT 231 K/MM3 (134-434); RBC 3.63 M/mm3 (3.60-5.2); RDW 16.5 % (11.6-15.6); WHITE BLOOD COUNT 3.7 K/mm3 (4.0-10.0)
[2018-04-09] MEDS: ALBUTEROL SO4 2.5/IPRATROPIUM 0.5 INH SOL 3 ML VIAL.NEB. NEB SCH ×4 (06:35→17:22)
[2018-04-09 06:43] LABS: ARTERIAL BLD GAS O2 SATURATION 86.7 % (90-98.9); ARTERIAL BLOOD GAS BASE EXCESS 6.6 meq/l (-2-2); ARTERIAL BLOOD GAS PCO2 51.3 mmHg (35-45); ARTERIAL BLOOD GAS PO2 54.5 mmHg (70-100); ARTERIAL BLOOD GAS pH 7.41 (7.35-7.45)
[2018-04-09 06:45] LABS: ALLENS TEST POSITIVE
[2018-04-09 07:05] LABS: ANION GAP 8 (8-16); BLOOD UREA NITROGEN 56 mg/dL (7-18); CALCIUM 8.6 mg/dL (8.5-10.1); CHLORIDE 95 mmol/L (98-107); CO2 36 mmol/L (21-32); GLUCOSE,RANDOM 181 mg/dL (74-106); MAGNESIUM 2.4 mg/dL (1.8-2.4); PHOSPHOROUS 4.6 mg/dL (2.5-4.9); POTASSIUM 4.3 mmol/L (3.5-5.1); SGOT/AST 19 U/L (15-37); SODIUM 139 mmol/L (136-145)
[2018-04-09 07:11] LABS: ALK PHOS 87 U/L (45-117); BILIRUBIN,TOTAL 0.7 mg/dL (0.2-1.0); CREATININE 2.2 mg/dL (0.55-1.02); N-TERMINAL BNP 7848.32 pg/ml (5-125); SGPT/ALT 20 U/L (12-78); TOT PROT 7.1 g/dl (6.4-8.2)
--- NOTE | 2018-04-09 08:07 | CON.CARD ---
Cardiology Consult (text) - Consultation Consultation Note: Cardiology Coverage for Prem Dictated In summary, 72F PMH COPD, HTN, AF admitted from the snf after a recent lengthy stay at [facility]. She is currently admitted to our ICU with acute on chronic presumed diastolic CHF, uncontrolled HTN and rapid AF. As per patient and daughter Karlene, she was admitted to [facility] about 6 weeks ago with hematemesis, BRBPR requiring transfusions (taken off Plavix), ARF requiring temporary HD and CHF. As per daughter, no source of bleeding was found. REC: 1. Need records from [facility] 2. Echo to assess LVEF 3. Start Cardizem drip for now to control AF and BP. 4. Hold ASHLEIGH/ARB secondary to elevated creatinine 5. Would hold full AC in the context of reported recent upper/lower GIB with no source determined. Old records will be helpful. 6. Diurese 7. Strict I/Os and daily weights 8. LE venous duplex
[2018-04-09] MEDS: DILTIAZEM INJECTION 125 MG in DEXTROSE 5%-WATER - 100 ML IVPB SCH (08:37)
--- NOTE | 2018-04-09 09:00 | CONS ---
DATE OF CONSULTATION: 04/09/2018 REQUESTED BY: Ezekiel Cary MD This consultation is in coverage for Dr. Amaro. CONSULTATION REQUESTED FOR: Congestive heart failure. The patient is a 72-year-old female with past medical history of COPD, hypertension, and reported atrial fibrillation, admitted from [facility] for shortness of breath and congestive heart failure. She recently had a lengthy admission to [facility] for what the patient and her daughter describe as hematemesis, bright red blood per rectum, requiring blood transfusions. At that time, she was taken off of Plavix. She required temporary hemodialysis for [id number] renal failure and she was also in congestive heart failure. From [facility], she was transferred to [facility], where she has been for the last 4 weeks. As per patient and the daughter, no source of bleeding was found at that time. The patient is now alert and oriented in the ICU. She denies chest pain. She is still mildly short of breath, but feeling much improved after being dosed with IV Lasix and receiving noninvasive positive-pressure ventilation. She denies palpitations, despite being in rapid atrial fibrillation. She denies fevers or chills. She has been noticing increasing bilateral lower extremity edema. PAST MEDICAL HISTORY: Significant for COPD, chronic hypertension, diabetes, reported atrial fibrillation, formerly on Plavix, recent GI bleeding, chronic renal failure requiring temporary hemodialysis. She has had benign breast tissue removed from her left breast. ALLERGIES: None. ACTIVE MEDICATIONS: Albuterol nebulizer; azithromycin; ceftriaxone; p.o. Cardizem, which has now been changed to a Cardizem drip; Lasix 40 mg IV daily; subcutaneous heparin for DVT prophylaxis; insulin; Solu-Medrol 40 mg IV q.6 p.r.n. FAMILY HISTORY: Noncontributory. SOCIAL HISTORY: She lives alone, has a son in the area. Recently in rehabilitation. Never smoked, but was exposed to secondhand smoke. PHYSICAL EXAMINATION: Vital Signs: Afebrile, temperature 97.5. She is in atrial fibrillation at 125 to 130 beats/min. Oxygen saturation is 96% on 70% FiO2/noninvasive positive- pressure ventilation. Neck: No JVD. Heart: S1, S2, irregular. No murmurs. Chest: Decreased breath sounds bilaterally with rales at the bases. Abdomen: Obese, soft, nontender. Extremities: Two-plus pitting edema bilaterally. CHEST X-RAY: Reviewed by me and shows diffuse bilateral pulmonary venous congestion. LABORATORIES: White count 3.7, hematocrit 34, platelets 231. INR 1.04. ABG 7.41, pCO2 51, pO2 54 on 70% BiPAP. Sodium 139, potassium 4.3, BUN 56, creatinine 2.2. LFTs are normal. Troponin is negative x1 set. BNP was 7848. EKG: Atrial fibrillation at 128 beats/min with nonspecific ST-changes and poor R-wave progression; cannot rule out old anterolateral infarct. SUMMARY: The patient is a 72-year-old female with past history of chronic obstructive pulmonary disease, hypertension, diabetes, atrial fibrillation with recent gastrointestinal bleed, chronic renal insufficiency, [facility] with presumed [id number] diastolic congestive heart failure in the setting of hypertension and rapid atrial fibrillation. RECOMMENDATION: 1. We need records from [facility]. 2. Echocardiogram for assessment of LVEF. 3. Begin Cardizem drop now for control of rapid atrial fibrillation and blood pressure control, which will be essential in managing her CHF. 4. Hold ASHLEIGH/ARB secondary to elevated creatinine. Can use nitrates + hydralazine for BP control and afterload reduction, will initiate at low dose; titrate to goal BP < 150/90 5. Would hold full anticoagulation/antiplatelet therapy in this reported context of recent upper/lower GI bleed with no source determined. Old records will be helpful for clarification. 6. Continue IV diuresis with strict ins and outs and daily weights. Patient has a De Leon catheter. 7. Lower extremity venous duplex. Thank you for the consultation. Dr. Amaro will return tomorrow and brass pickler care. JERICHO POMPA M.D. [id number] MTDD
[2018-04-09] MEDS ORDERED: PT OWN MED DRAWER 7, Y5N ONE ×2 (09:21→20:49)
[2018-04-09] MEDS ORDERED: cefTRIAXone SODIUM 1 GM VIAL ONE (09:22)
[2018-04-09] MEDS ORDERED: DEXTROSE 5%-WATER - 50 ML IVPB ONE (09:22)
[2018-04-09 09:38] LABS: URINE APPEARANCE CLEAR; URINE BILIRUBIN NEGATIVE (<2.0 mg/dL); URINE COLOR LTYELLOW; URINE GLUCOSE (UA) NEGATIVE (NEGATIVE); URINE KETONE NEGATIVE (NEGATIVE); URINE LEUK ESTERASE NEGATIVE (NEGATIVE); URINE NITRITE NEGATIVE (NEGATIVE); URINE UROBILINOGEN NEGATIVE mg/dL (0.2-1.0)
--- NOTE | 2018-04-09 09:52 | CONSULT ---
Consult Consult Specialty:: PULM/CCM Referred by:: GRABIEL Reason for Consultation:: Acute Respiratory Failure - History of Present Illness Chief Complaint: SOB History of Present Illness: 72 F, known to me from multiple admissions from [facility] and [facility]. Recent prolonged illness in the ICU at [facility] for GI bleeding and ARF requiring HD. Known history of COPD, HTN, AFib, OSAS, and a left 3.6cm renal mass noted on CT 12/2017. Admitted via the ER due to 3 days of progressively worsening SOB. She was given Lasix and placed on CPAP at the SNF and EMS was called. Noted to be in acute hypoxic respiratory failure requiring NIPPV. She denies palpitations, chest pain, fever, chills. She does report some dry cough. No travel history or sick contacts. CXR: Bilateral pulmonary vascular congestion / cardiomegaly - History Source History Provided By: Patient Limitations to Obtaining History: Poor Historian - Past Medical History Cardio/Vascular: Yes: HTN Pulmonary: Yes: Asthma, COPD, Sleep Apnea Musculoskeletal: Yes: Osteoarthritis Rheumatology: Yes: Gout Endocrine: Yes: Diabetes Mellitus - Past Surgical History Past Surgical History: Yes: - Alcohol/Substance Use Hx Alcohol Use: No - Smoking History Smoking history: Never smoked Have you smoked in the past 12 months: No Aproximately how many cigarettes per day: 0 Home Medications - Allergies Allergies/Adverse Reactions: Allergies Allergy/AdvReac Type Severity Reaction Status Date / Time No Known Allergies Allergy Verified 04/08/18 14:37 - Home Medications Home Medications: Ambulatory Orders Acetaminophen [Pain Relief] 650 mg PO ASDIR 04/08/18 Acetylcysteine Po/INH 20% [Mucomyst 20 Oral / INH Use Only*] 1 ml NEB ASDIR 07/18 Albuterol 2.5/Ipratropium 0.5 [Duoneb -] 1 amp NEB QID PRN 04/08/18 Budesonide/Formeterol Fumarate [SYMBICORT 160/4.5mcg -] 2 inh IH ASDIR 04/08/18 Diltiazem [Cardizem -] 60 mg PO ASDIR 04/08/18 Famotidine [Pepcid] 20 mg PO DAILY 04/08/18 Furosemide [Lasix] 80 mg PO DAILY 04/08/18 Mupirocin Ointment [Bactroban] 1 applic TP ASDIR 04/08/18 Nystatin/Triamcin [Nystatin-Triamcinolone Cream] 1 applic TP ASDIR 04/08/18 Polyethylene Glycol 3350 [Smoothlax] 17 gm PO ASDIR 04/08/18 Sennosides [Senno] 2 tab PO DAILY 04/08/18 Family Disease History - Family Disease History Family Disease History: CA: Grandparent, Mother, Sister Review of Systems - Review of Systems Constitutional: reports: Malaise, Weakness. denies: Chills, Fever Eyes: reports: No Symptoms HENT: reports: No Symptoms Neck: reports: No Symptoms Cardiovascular: reports: Edema, Shortness of Breath. denies: Chest Pain Respiratory: reports: Cough, Orthopnea, Snoring, SOB, SOB on Exertion. denies: Hemoptysis, Wheezing Gastrointestinal: reports: No Symptoms Genitourinary: reports: No Symptoms Breasts: reports: No Symptoms Reported Musculoskeletal: reports: No Symptoms Integumentary: reports: No Symptoms Neurological: reports: No Symptoms Endocrine: reports: No Symptoms Hematology/Lymphatic: reports: No Symptoms Psychiatric: reports: No Symptoms Physical Exam Vital Signs: Vital Signs Temperature 97.5 F L 04/09/18 06:00 Pulse Rate 126 H 04/09/18 08:37 Respiratory Rate 18 04/09/18 08:00 Blood Pressure 158/112 04/09/18 08:37 O2 Sat by Pulse Oximetry (%) 93 L 04/08/18 22:00 Constitutional: Yes: Mild Distress, Obese Eyes: Yes: Conjunctiva Clear, EOM Intact HENT: Yes: Atraumatic, Normocephalic Neck: Yes: Supple, Trachea Midline Cardiovascular: Yes: Pulse Irregular Respiratory: Yes: Cough, Diminished, On BiPap, Rales, Rhonchi, SOB, Tachypnea. No: Accessory Muscle Use, Stridor, Wheezes Gastrointestinal: Yes: Normal Bowel Sounds, Soft, Abdomen, Obese ...Rectal Exam: Yes: Deferred Renal/: Yes: WNL Musculoskeletal: Yes: WNL Extremities: Yes: WNL Edema: Yes Peripheral Pulses WNL: Yes Integumentary: Yes: WNL Neurological: Yes: WNL, Alert, Oriented ...Motor Strength: WNL Psychiatric: Yes: WNL, Alert, Oriented Labs: CBC, BMP 04/09/18 05:30 04/09/18 05:30 Imaging - Results Chest X-ray: Report Reviewed, Image Reviewed Problem List - Problems (1) Sleep apnea Code(s): G47.30 - SLEEP APNEA, UNSPECIFIED (2) Acute respiratory failure with hypoxia Code(s): J96.01 - ACUTE RESPIRATORY FAILURE WITH HYPOXIA (3) CHF (congestive heart failure) Code(s): I50.9 - HEART FAILURE, UNSPECIFIED (4) CHF exacerbation Code(s): I50.9 - HEART FAILURE, UNSPECIFIED Qualifiers: Heart failure type: unspecified Qualified Code(s): I50.9 - Heart failure, unspecified (5) CKD (chronic kidney disease) Code(s): N18.9 - CHRONIC KIDNEY DISEASE, UNSPECIFIED Qualifiers: Chronic kidney disease stage: unspecified stage Qualified Code(s): N18.9 - Chronic kidney disease, unspecified (6) Rapid atrial fibrillation Code(s): I48.91 - UNSPECIFIED ATRIAL FIBRILLATION (7) Respiratory distress Code(s): R06.03 - ACUTE RESPIRATORY DISTRESS Assessment/Plan Noted Empiric ABX: low threshold to stop tomorrow once cultures are negative Rapid wean of IV steroids as I suspect more of decompensated CHF Lasix BID NIPPV support Daily weight Strict I & O Aspiration precautions Follow cultures Follow H&H BD TX ICU monitoring Dr Fitzgerald Critical care time spent in reviewing chart, evaluating patient and formulating plan - 36 minutes.
--- NOTE | 2018-04-09 09:58 | PN ---
Progress Note, Physician Chief Complaint: CHF JASON History of Present Illness: SOB improved as per patient on Bipap On cardizem drip for JASON - Current Medication List Current Medications: Active Medications Albuterol/Ipratropium (Duoneb -) 1 amp NEB Q4HWA [facility] Stop: 04/09/18 20:44 Last Admin: 04/09/18 06:35 Dose: 1 amp Chlorhexidine Gluconate (Hibiclens For Decolonization -) 1 applic TP HS [facility] Last Admin: 04/08/18 21:28 Dose: 1 applic Furosemide (Lasix Injection -) 40 mg IVPUSH DAILY [facility] Heparin Sodium (Porcine) (Heparin -) 5,000 unit SQ TID [facility] Last Admin: 04/09/18 06:24 Dose: 5,000 unit Azithromycin 250 mg/ Dextrose 250 mls @ 250 mls/hr IVPB DAILY JIGNESH Ceftriaxone Sodium 1 gm/ (Dextrose) 50 mls @ 100 mls/hr IVPB DAILY [facility]; Protocol Diltiazem HCl 125 mg/ Dextrose 125 mls @ 5 mls/hr IVPB TITR JIGNESH; Protocol Last Admin: 04/09/18 08:37 Dose: 5 mg/hr, 5 mls/hr Insulin Aspart (Novolog Vial Sliding Scale -) 1 vial SQ ACHS [facility]; Protocol Last Admin: 04/09/18 06:25 Dose: 2 units Methylprednisolone Sodium Succinate (Solu-Medrol -) 40 mg IVPUSH Q6H-IV JIGNESH Last Admin: 04/09/18 02:13 Dose: 40 mg Mupirocin (Bactroban Ointment (For Decolonization) -) 1 applic NS BID [facility] Stop: 04/13/18 21:59 Last Admin: 04/08/18 21:28 Dose: 1 applic Pneumococcal 13-Valent Conj Vacc (Prevnar 13 Syringe -) 0.5 ml IM .ONCE ONE Stop: 04/09/18 10:01 Tiotropium [place] (Spiriva -) 1 puff IH DAILY [facility] Last Admin: 04/08/18 21:27 Dose: 1 puff - Objective Vital Signs: Vital Signs Temperature 97.5 F L 04/09/18 06:00 Pulse Rate 126 H 04/09/18 08:37 Respiratory Rate 18 04/09/18 08:00 Blood Pressure 158/112 04/09/18 08:37 O2 Sat by Pulse Oximetry (%) 93 L 04/08/18 22:00 Constitutional: Yes: Well Nourished, No Distress, Calm Cardiovascular: Yes: Regular Rate and Rhythm Respiratory: Yes: Regular Gastrointestinal: Yes: Normal Bowel Sounds, Soft Musculoskeletal: Yes: Muscle Weakness Edema: Yes Peripheral Pulses WNL: Yes Peripheral Pulses: Left Doralis Pedis: 2+, Right Dorsalis Pedis: 2+ Neurological: Yes: Alert, Oriented Psychiatric: Yes: Alert, Oriented Labs: CBC, BMP 04/09/18 05:30 04/09/18 05:30 INR, PTT INR 1.04 (0.82-1.09) 04/08/18 15:40 Problem List - Problems (1) Rapid atrial fibrillation Assessment/Plan: -On cardizem drip -No AC due to history of GI bleed Code(s): I48.91 - UNSPECIFIED ATRIAL FIBRILLATION (2) CHF exacerbation Assessment/Plan: -IV Lasix 40 mg daily -Strict I&O's -daily weight -low sodium diet -Seen by cardiology -Pulmonary on board Code(s): I50.9 - HEART FAILURE, UNSPECIFIED Qualifiers: Heart failure type: unspecified Qualified Code(s): I50.9 - Heart failure, unspecified (3) CKD (chronic kidney disease) Assessment/Plan: -Nephrology consult called in -Monitor trend -Has suspicious left renal mass from imaging done at [facility] records -repeat Renal/bladder U/S Code(s): N18.9 - CHRONIC KIDNEY DISEASE, UNSPECIFIED Qualifiers: Chronic kidney disease stage: unspecified stage Qualified Code(s): N18.9 - Chronic kidney disease, unspecified (4) Respiratory distress Assessment/Plan: -On continous BIPAP -bronchodilators Code(s): R06.03 - ACUTE RESPIRATORY DISTRESS Assessment/Plan see problem list
[2018-04-09] MEDS ORDERED: CEFTRIAXONE 1 GM in DEXTROSE 5%-WATER - 50 ML IVPB SCH (10:00)
[2018-04-09] MEDS ORDERED: FUROSEMIDE 40 MG/4 ML INJECTABLE VIAL IVPUSH SCH (10:00)
[2018-04-09] MEDS ORDERED: AZITHROMYCIN IVPB 250 MG in DEXTROSE 5%-WATER - 250 ML IVPB SCH (10:00)
[2018-04-09] MEDS ORDERED: PNEUMOC 13-VAL CONJ-DIP CRM/PF 0.5 ML DISP.SYRIN IM ONE (10:00)
[2018-04-09 10:11] LABS: URINE PROTEIN 2+ (NEGATIVE)
[2018-04-09] MEDS: CEFTRIAXONE 1 GM in DEXTROSE 5%-WATER - 50 ML IVPB SCH (10:12)
[2018-04-09 10:13] LABS: URINE MUCUS RARE
[2018-04-09] MEDS: TIOTROPIUM BROMIDE 18 MCG CAPSULES IH SCH (10:23)
--- NOTE | 2018-04-09 11:51 | EKG ---
Test Reason : Blood Pressure : / mmHG Vent. Rate : 118 BPM Atrial Rate : 081 BPM P-R Int : 000 ms QRS Dur : 092 ms QT Int : 304 ms P-R-T Axes : 000 009 201 degrees QTc Int : 426 ms POOR DATA QUALITY, INTERPRETATION MAY BE ADVERSELY AFFECTED ATRIAL FIBRILLATION WITH RAPID VENTRICULAR RESPONSE SEPTAL INFARCT (CITED ON OR BEFORE 09-AUG-2006) POSSIBLE LATERAL INFARCT (CITED ON OR BEFORE 09-AUG-2006) ABNORMAL ECG Confirmed by MD Kevin, Marquez ([id number]) on 04/09/2018 11:50:52 AM Referred By: Confirmed By:Marquez Brown MD
[2018-04-09] MEDS: MUPIROCIN 2% TOPICAL OINTMENT FOR DECOLONIZATION NS SCH (11:56)
[2018-04-09] MEDS: AZITHROMYCIN IVPB 250 MG in DEXTROSE 5%-WATER - 250 ML IVPB SCH (11:56)
[2018-04-09] MEDS: hydrALAZINE HCL 25 MG TABLET (FP) PO SCH ×2 (12:16→21:19)
[2018-04-09] MEDS: ISOSORBIDE DINITRATE 10 MG TABLET (FP) PO SCH ×2 (13:42→21:20)
--- NOTE | 2018-04-09 15:05 | CONSULT ---
Consult Consult Specialty:: Nephrology Reason for Consultation:: CKD - History of Present Illness Chief Complaint: shortness of breath History of Present Illness: Pt is a 72 year old female with pmhx of CKD, CHF, COPD on home oxygen, and morbid obesity who presents to the er with worsening shortness of breath. She also complains of worsening lower extremity edema. She was found to have elevated creatinine and I was called to evaluate her. She does have history of CKD and follows with Dr Ohara. She felt better with the bipap. She started to feel some relief with lasix. She denies fevers or chills. She says that the shortness of breath began a few days ago and has been getting worse. Pt was also found to be in rapid afib and was started on a cradizem drip. She was able to give some history but is not a great historian. Pt is aware of her kidney disease however she is not clear about the etiology. - History Source History Provided By: Patient, Medical Record - Past Medical History Cardio/Vascular: Yes: HTN Pulmonary: Yes: Asthma, COPD, Sleep Apnea Renal/: Yes: Renal Inusuff Musculoskeletal: Yes: Osteoarthritis Rheumatology: Yes: Gout Endocrine: Yes: Diabetes Mellitus - Past Surgical History Past Surgical History: Yes: - Alcohol/Substance Use Hx Alcohol Use: No - Smoking History Smoking history: Never smoked Have you smoked in the past 12 months: No Aproximately how many cigarettes per day: 0 Home Medications - Allergies Allergies/Adverse Reactions: Allergies Allergy/AdvReac Type Severity Reaction Status Date / Time No Known Allergies Allergy Verified 04/08/18 14:37 - Home Medications Home Medications: Ambulatory Orders Acetaminophen [Pain Relief] 650 mg PO ASDIR 04/08/18 Acetylcysteine Po/INH 20% [Mucomyst 20 Oral / INH Use Only*] 1 ml NEB ASDIR 07/18 Albuterol 2.5/Ipratropium 0.5 [Duoneb -] 1 amp NEB QID PRN 04/08/18 Budesonide/Formeterol Fumarate [SYMBICORT 160/4.5mcg -] 2 inh IH ASDIR 04/08/18 Diltiazem [Cardizem -] 60 mg PO ASDIR 04/08/18 Famotidine [Pepcid] 20 mg PO DAILY 04/08/18 Furosemide [Lasix] 80 mg PO DAILY 04/08/18 Mupirocin Ointment [Bactroban] 1 applic TP ASDIR 04/08/18 Nystatin/Triamcin [Nystatin-Triamcinolone Cream] 1 applic TP ASDIR 04/08/18 Polyethylene Glycol 3350 [Smoothlax] 17 gm PO ASDIR 04/08/18 Sennosides [Senno] 2 tab PO DAILY 04/08/18 Family Disease History - Family Disease History Family Disease History: [place]: Grandparent, Mother, Sister Review of Systems - Review of Systems Constitutional: reports: Malaise. denies: Chills, Fever Eyes: reports: No Symptoms HENT: reports: No Symptoms Neck: reports: No Symptoms Cardiovascular: reports: Edema, Palpitations, Shortness of Breath. denies: Chest Pain Respiratory: reports: SOB, SOB on Exertion Genitourinary: reports: No Symptoms Musculoskeletal: reports: No Symptoms Integumentary: reports: No Symptoms Neurological: reports: No Symptoms Endocrine: reports: No Symptoms Hematology/Lymphatic: reports: No Symptoms Psychiatric: reports: No Symptoms Physical Exam Vital Signs: Vital Signs Temperature 97.8 F 04/09/18 10:00 Pulse Rate 109 H 04/09/18 12:00 Respiratory Rate 22 04/09/18 12:00 Blood Pressure 148/105 04/09/18 12:00 O2 Sat by Pulse Oximetry (%) 95 04/09/18 10:38 Constitutional: Yes: Mild Distress Eyes: Yes: Conjunctiva Clear HENT: Yes: Atraumatic Cardiovascular: Yes: Tachycardia, Pulse Irregular, S1, S2 Respiratory: Yes: On BiPap, Rhonchi Gastrointestinal: Yes: Soft, Abdomen, Obese Renal/: Yes: [place] Present Musculoskeletal: Yes: WNL Edema: Yes Edema: LLE: 2+, RLE: 2+ Neurological: Yes: Oriented Psychiatric: Yes: Oriented Labs: CBC, BMP 04/09/18 05:30 04/09/18 05:30 Laboratory Tests 11/23/10 11/28/10 04/02/11 13:55 10:02 16:20 WBC Hgb Creatinine 1.8 H 1.2 D 2.6 H D Urine Protein Urine Blood 11/15/13 11/16/13 11/17/13 07:00 06:45 07:45 WBC Hgb Creatinine 1.6 H 1.6 H 1.6 H Urine Protein Urine Blood 11/16/14 02/10/15 04/08/18 06:00 19:55 15:40 WBC 8.7 D Hgb 11.3 Creatinine 1.5 H 1.8 H Urine Protein Urine Blood 04/08/18 04/08/18 04/09/18 15:40 23:44 05:30 WBC Hgb Creatinine 2.1 H 2.2 H Urine Protein 2+ H Urine Blood 1+ H Imaging - Results Chest X-ray: Report Reviewed Ultrasound: Report Reviewed (echogenic kidneys) Problem List - Problems (1) Acute respiratory failure with hypoxia Code(s): J96.01 - ACUTE RESPIRATORY FAILURE WITH HYPOXIA (2) CHF (congestive heart failure) Code(s): I50.9 - HEART FAILURE, UNSPECIFIED (3) CKD (chronic kidney disease) Code(s): N18.9 - CHRONIC KIDNEY DISEASE, UNSPECIFIED Qualifiers: Chronic kidney disease stage: unspecified stage Qualified Code(s): N18.9 - Chronic kidney disease, unspecified (4) Renal insufficiency Code(s): N28.9 - DISORDER OF KIDNEY AND URETER, UNSPECIFIED Assessment/Plan Current Medications Generic Name Dose Route Start Last Admin Trade Name Freq PRN Reason Stop Dose Admin Albuterol/Ipratropium 1 amp 04/08/18 20:45 04/09/18 14:05 Duoneb - NEB 04/09/18 20:44 1 amp [id number] JIGNESH Administration Chlorhexidine Gluconate 1 applic 04/08/18 22:00 04/08/18 21:28 Hibiclens For Decolonization - TP 1 applic HS JIGNESH Administration Furosemide 40 mg 04/09/18 14:00 Lasix Injection - IVPUSH BIDLASIX JIGNESH Heparin Sodium (Porcine) 5,000 unit 04/08/18 20:16 04/09/18 13:42 Heparin - SQ 5,000 unit TID JIGNESH Administration Hydralazine HCl 25 mg 04/09/18 11:59 04/09/18 12:16 Apresoline - PO 25 mg BID JIGNESH Administration Azithromycin 250 mg/ Dextrose 250 mls @ 250 mls/hr 04/09/18 10:00 04/09/18 11 :56 IVPB 250 mls/hr DAILY JIGNESH Administration Ceftriaxone Sodium 1 gm/ 50 mls @ 100 mls/hr 04/09/18 10:00 04/09/18 10:12 Dextrose IVPB 100 mls/hr DAILY JIGNESH Administration Protocol Diltiazem HCl 125 mg/ Dextrose 125 mls @ 5 mls/hr 04/09/18 08:15 04/09/18 08: 37 IVPB 5 mg/hr TITR JIGNESH 5 mls/hr Administration Protocol 5 MG/HR Insulin Aspart 1 vial 04/08/18 22:00 04/09/18 11:57 Novolog Vial Sliding Scale - SQ 4 units ACHS JIGNESH Administration Protocol Isosorbide Dinitrate 10 mg 04/09/18 12:30 04/09/18 13:42 Isordil - PO 10 mg BID JIGNESH Administration Methylprednisolone Sodium Succinate 40 mg 04/08/18 21:00 04/09/18 09:47 Solu-Medrol - IVPUSH 40 mg Q6H-IV JIGNESH Administration Mupirocin 1 applic 04/08/18 22:00 04/09/18 11:56 Bactroban Ointment (For Decolonization) - NS 04/13/18 21:59 1 applic BID JIGNESH Administration Tiotropium [place] 1 puff 04/08/18 20:45 04/09/18 10:23 Spiriva - IH 1 puff DAILY JIGNESH Administration Impression 1. CKD 2. CHF 3. resp failure requiring bipap 4. obesity 5. fluid overload 6. COPD 7. 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
[2018-04-09] MEDS: FUROSEMIDE 40 MG/4 ML INJECTABLE VIAL IVPUSH SCH (16:50)
[2018-04-09] MEDS: CHLORHEXIDINE GLUCONATE 4% CLEANSER FOR DECOLONIZATION TP SCH (21:20)
[2018-04-10] MEDS: MUPIROCIN 2% TOPICAL OINTMENT FOR DECOLONIZATION NS SCH ×3 (01:31→22:24)
[2018-04-10] MEDS: methylPREDNISolone NA SUCC 40 MG/1 ML VIAL IVPUSH SCH ×2 (03:24→09:25)
[2018-04-10] MEDS: HEPARIN NA (PORCINE) 5,000 UNITS/ML 1ML VIAL SQ SCH ×3 (05:27→22:23)
[2018-04-10] MEDS: FUROSEMIDE 40 MG/4 ML INJECTABLE VIAL IVPUSH SCH ×2 (05:27→13:22)
[2018-04-10 06:45] LABS: ARTERIAL BLOOD GAS PCO2 50.7 mmHg (35-45); ARTERIAL BLOOD GAS pH 7.43 (7.35-7.45)
[2018-04-10 06:46] LABS: HEMATOCRIT 33.2 % (32.4-45.2); HEMOGLOBIN 10.8 GM/dL (10.7-15.3); MCH 30.7 pg (25.7-33.7); MCHC 32.5 g/dl (32.0-36.0); MEAN CELL VOLUME 94.6 fl (80-96); MEAN PLT VOLUME 10.8 fl (7.5-11.1); PLATELET COUNT 232 K/MM3 (134-434); RBC 3.51 M/mm3 (3.60-5.2); RDW 17.1 % (11.6-15.6); WHITE BLOOD COUNT 7.2 K/mm3 (4.0-10.0)
[2018-04-10 06:49] LABS: ALLENS TEST POSITIVE
[2018-04-10] MEDS: INSULIN SLIDING SCALE (NOVOLOG) 1 VIAL SQ SCH ×4 (07:00→22:44)
[2018-04-10 07:38] LABS: ALBUMIN 3.2 g/dl (3.4-5.0); ALK PHOS 78 U/L (45-117); BILIRUBIN,TOTAL 0.5 mg/dL (0.2-1.0); BLOOD UREA NITROGEN 63 mg/dL (7-18); CALCIUM 8.7 mg/dL (8.5-10.1); CO2 33 mmol/L (21-32); CREATININE 2.4 mg/dL (0.55-1.02); GLUCOSE,RANDOM 187 mg/dL (74-106); SGOT/AST 16 U/L (15-37); SGPT/ALT 20 U/L (12-78); TOT PROT 7.2 g/dl (6.4-8.2)
--- NOTE | 2018-04-10 07:56 | PN ---
Progress Note, Physician History of Present Illness: c/o sob no cp no palpitations - Current Medication List Current Medications: Active Medications Chlorhexidine Gluconate (Hibiclens For Decolonization -) 1 applic TP HS [facility] Last Admin: 04/09/18 21:20 Dose: 1 applic Furosemide (Lasix Injection -) 40 mg IVPUSH BIDLASIX [facility] Last Admin: 04/10/18 05:27 Dose: 40 mg Heparin Sodium (Porcine) (Heparin -) 5,000 unit SQ TID JIGNESH Last Admin: 04/10/18 05:27 Dose: 5,000 unit Hydralazine HCl (Apresoline -) 25 mg PO BID [facility] Last Admin: 04/09/18 21:19 Dose: 25 mg Azithromycin 250 mg/ Dextrose 250 mls @ 250 mls/hr IVPB DAILY [facility] Last Admin: 04/09/18 11:56 Dose: 250 mls/hr Ceftriaxone Sodium 1 gm/ (Dextrose) 50 mls @ 100 mls/hr IVPB DAILY [facility]; Protocol Last Admin: 04/09/18 10:12 Dose: 100 mls/hr Diltiazem HCl 125 mg/ Dextrose 125 mls @ 5 mls/hr IVPB TITR [facility]; Protocol Last Titration: 04/09/18 17:00 Dose: 10 mg/hr, 10 mls/hr Insulin Aspart (Novolog Vial Sliding Scale -) 1 vial SQ ACHS [facility]; Protocol Last Admin: 04/10/18 07:00 Dose: 2 units Isosorbide Dinitrate (Isordil -) 10 mg PO BID [facility] Last Admin: 04/09/18 21:20 Dose: 10 mg Methylprednisolone Sodium Succinate (Solu-Medrol -) 40 mg IVPUSH Q6H-IV [facility] Last Admin: 04/10/18 03:24 Dose: 40 mg Mupirocin (Bactroban Ointment (For Decolonization) -) 1 applic NS BID [facility] Stop: 04/13/18 21:59 Last Admin: 04/10/18 01:31 Dose: 1 applic Tiotropium [place] (Spiriva -) 1 puff IH DAILY [facility] Last Admin: 04/09/18 10:23 Dose: 1 puff - Objective Vital Signs: Vital Signs Temperature 98.6 F 04/10/18 04:00 Pulse Rate 90 04/10/18 06:00 Respiratory Rate 18 04/10/18 06:00 Blood Pressure 160/109 04/10/18 06:00 O2 Sat by Pulse Oximetry (%) 98 04/10/18 06:06 Cardiovascular: Yes: S1, S2 Respiratory: Yes: Rales (at the bases). No: Wheezes Gastrointestinal: Yes: Normal Bowel Sounds, Soft Labs: CBC, BMP 04/10/18 05:30 INR, PTT INR 1.04 (0.82-1.09) 04/08/18 15:40 Assessment/Plan - Problems (1) Rapid atrial fibrillation Assessment/Plan: -On cardizem drip -No AC due to history of GI bleed Code(s): I48.91 - UNSPECIFIED ATRIAL FIBRILLATION (2) CHF exacerbation Assessment/Plan: -IV Lasix 40 mg bid -Strict I&O's -daily weight -low sodium diet -Seen by cardiology -Echo -Pulmonary on board Code(s): I50.9 - HEART FAILURE, UNSPECIFIED Qualifiers: Heart failure type: unspecified Qualified Code(s): I50.9 - Heart failure, unspecified (3) CKD (chronic kidney disease) Assessment/Plan: -Nephrology consult -Monitor trend -Has suspicious left renal mass from imaging done at [facility] records -repeat Renal/bladder U/S Code(s): N18.9 - CHRONIC KIDNEY DISEASE, UNSPECIFIED Qualifiers: Chronic kidney disease stage: unspecified stage Qualified Code(s): N18.9 - Chronic kidney disease, unspecified (4) Respiratory distress Assessment/Plan: -On continous BIPAP -bronchodilators Code(s): R06.03 - ACUTE RESPIRATORY DISTRESS
--- NOTE | 2018-04-10 08:35 | PN ---
Progress Note, Physician History of Present Illness: In summary, 72F PMH COPD, HTN, AF admitted from the correction after a recent lengthy stay at [facility]. She is currently admitted to our ICU with acute on chronic presumed diastolic CHF, uncontrolled HTN and rapid AF. As per patient and daughter Karlene, she was admitted to [facility] about 6 weeks ago with hematemesis, BRBPR requiring transfusions (taken off Plavix), ARF requiring temporary HD and CHF. As per daughter, no source of bleeding was found. - Current Medication List Current Medications: Active Medications Chlorhexidine Gluconate (Hibiclens For Decolonization -) 1 applic TP HS [facility] Last Admin: 04/09/18 21:20 Dose: 1 applic Furosemide (Lasix Injection -) 40 mg IVPUSH BIDLASIX [facility] Last Admin: 04/10/18 05:27 Dose: 40 mg Heparin Sodium (Porcine) (Heparin -) 5,000 unit SQ TID [facility] Last Admin: 04/10/18 05:27 Dose: 5,000 unit Hydralazine HCl (Apresoline -) 25 mg PO BID [facility] Last Admin: 04/09/18 21:19 Dose: 25 mg Azithromycin 250 mg/ Dextrose 250 mls @ 250 mls/hr IVPB DAILY [facility] Last Admin: 04/09/18 11:56 Dose: 250 mls/hr Ceftriaxone Sodium 1 gm/ (Dextrose) 50 mls @ 100 mls/hr IVPB DAILY [facility]; Protocol Last Admin: 04/09/18 10:12 Dose: 100 mls/hr Diltiazem HCl 125 mg/ Dextrose 125 mls @ 5 mls/hr IVPB TITR [facility]; Protocol Last Titration: 04/09/18 17:00 Dose: 10 mg/hr, 10 mls/hr Insulin Aspart (Novolog Vial Sliding Scale -) 1 vial SQ ACHS [facility]; Protocol Last Admin: 04/10/18 07:00 Dose: 2 units Isosorbide Dinitrate (Isordil -) 10 mg PO BID [facility] Last Admin: 04/09/18 21:20 Dose: 10 mg Methylprednisolone Sodium Succinate (Solu-Medrol -) 40 mg IVPUSH Q6H-IV [facility] Last Admin: 04/10/18 03:24 Dose: 40 mg Mupirocin (Bactroban Ointment (For Decolonization) -) 1 applic NS BID [facility] Stop: 04/13/18 21:59 Last Admin: 04/10/18 01:31 Dose: 1 applic Tiotropium [place] (Spiriva -) 1 puff IH DAILY [facility] Last Admin: 04/09/18 10:23 Dose: 1 puff - Objective Vital Signs: Vital Signs Temperature 98.6 F 04/10/18 04:00 Pulse Rate 90 04/10/18 06:00 Respiratory Rate 18 04/10/18 06:00 Blood Pressure 160/109 04/10/18 06:00 O2 Sat by Pulse Oximetry (%) 98 04/10/18 06:06 Eyes: Yes: WNL, Conjunctiva Clear, EOM Intact HENT: Yes: WNL, Atraumatic, Normocephalic Neck: Yes: WNL, Supple, Trachea Midline Cardiovascular: Yes: Pulse Irregular Respiratory: Yes: WNL, Regular, CTA Bilaterally Gastrointestinal: Yes: WNL, Normal Bowel Sounds Genitourinary: Yes: WNL Musculoskeletal: Yes: WNL Extremities: Yes: WNL Edema: No Integumentary: Yes: WNL Neurological: Yes: WNL, Alert, Oriented ...Motor Strength: WNL Psychiatric: Yes: WNL Labs: CBC, BMP 04/10/18 05:30 04/10/18 05:30 INR, PTT INR 1.04 (0.82-1.09) 04/08/18 15:40 Assessment/Plan In summary, 72F PMH COPD, HTN, AF admitted from the correction after a recent lengthy stay at [facility]. She is currently admitted to our ICU with acute on chronic presumed diastolic CHF, uncontrolled HTN and rapid AF. As per patient and daughter Karlene, she was admitted to [facility] about 6 weeks ago with hematemesis, BRBPR requiring transfusions (taken off Plavix), ARF requiring temporary HD and CHF. As per daughter, no source of bleeding was found. REC: 1. Need records from [facility] 2. Echo LVEF 44% 3. Start Cardizem drip for now to control AF and BP. Will add low dose of BB and cardizem PO 4. Hold ASHLEIGH/ARB secondary to elevated creatinine 5. Would hold full AC in the context of reported recent upper/lower GIB with no source determined. Old records will be helpful. 6. Diurese 7. Strict I/Os and daily weights 8. LE venous duplex CC time spent 37 min
[2018-04-10] MEDS ORDERED: PT OWN MED DRAWER 7, Y5N ONE ×2 (08:49→22:21)
[2018-04-10] MEDS ORDERED: cefTRIAXone SODIUM 1 GM VIAL ONE ×2 (08:49→15:31)
[2018-04-10] MEDS ORDERED: DEXTROSE 5%-WATER - 50 ML IVPB ONE ×2 (08:49→15:31)
[2018-04-10 09:12] LABS: ANION GAP 10 (8-16); CHLORIDE 96 mmol/L (98-107); SODIUM 139 mmol/L (136-145)
[2018-04-10] MEDS: CEFTRIAXONE 1 GM in DEXTROSE 5%-WATER - 50 ML IVPB SCH (09:24)
[2018-04-10] MEDS: TIOTROPIUM BROMIDE 18 MCG CAPSULES IH SCH (09:25)
[2018-04-10] MEDS: ISOSORBIDE DINITRATE 10 MG TABLET (FP) PO SCH ×2 (09:26→22:37)
[2018-04-10] MEDS: hydrALAZINE HCL 25 MG TABLET (FP) PO SCH ×2 (09:46→22:24)
[2018-04-10] MEDS: AZITHROMYCIN IVPB 250 MG in DEXTROSE 5%-WATER - 250 ML IVPB SCH (11:14)
--- NOTE | 2018-04-10 12:40 | PN ---
Teaching Attending Note Name of Resident: Lily Del Rio ATTENDING PHYSICIAN STATEMENT I saw and evaluated the patient. I reviewed the resident's note and discussed the case with the resident. I agree with the resident's findings and plan as documented. SUBJECTIVE: Pt seen and examined in the ICU. Remains on BiPAP but states her breathing slightly better today. Remains on cardizem gtt. OBJECTIVE: Vital Signs Period Temp Pulse Resp BP Sys/[place] Pulse Ox Last 24 Hr 97.6 F-98.6 F 83-118 18-55 125-168/85-111 95-100 Intake & Output 04/07/18 04/08/18 04/09/18 04/10/18 23:59 23:59 23:59 23:59 Intake Total 680 170 Output Total 200 1600 600 Balance -200 -920 -430 Weight 97.522 kg 131.995 kg Gen: mildly tachypneic on BiPAP Heart: RRR Lung: scattered rhonchi Abd: soft, nontender Ext: + edema CBC, BMP 04/10/18 05:30 04/10/18 05:30 Active Medications Chlorhexidine Gluconate (Hibiclens For Decolonization -) 1 applic TP HS [facility] Last Admin: 04/09/18 21:20 Dose: 1 applic Furosemide (Lasix Injection -) 40 mg IVPUSH BIDLASIX [facility] Last Admin: 04/10/18 05:27 Dose: 40 mg Heparin Sodium (Porcine) (Heparin -) 5,000 unit SQ TID [facility] Last Admin: 04/10/18 05:27 Dose: 5,000 unit Hydralazine HCl (Apresoline -) 25 mg PO BID [facility] Last Admin: 04/10/18 09:46 Dose: 25 mg Azithromycin 250 mg/ Dextrose 250 mls @ 250 mls/hr IVPB DAILY [facility] Last Admin: 04/10/18 11:14 Dose: 250 mls/hr Ceftriaxone Sodium 1 gm/ (Dextrose) 50 mls @ 100 mls/hr IVPB DAILY [facility]; Protocol Last Admin: 04/10/18 09:24 Dose: 100 mls/hr Diltiazem HCl 125 mg/ Dextrose 125 mls @ 5 mls/hr IVPB TITR [facility]; Protocol Last Titration: 04/10/18 11:14 Dose: 10 mg/hr, 10 mls/hr Insulin Aspart (Novolog Vial Sliding Scale -) 1 vial SQ ACHS [facility]; Protocol Last Admin: 04/10/18 07:00 Dose: 2 units Isosorbide Dinitrate (Isordil -) 10 mg PO BID [facility] Last Admin: 04/10/18 09:26 Dose: 10 mg Methylprednisolone Sodium Succinate (Solu-Medrol -) 40 mg IVPUSH BID [facility] Mupirocin (Bactroban Ointment (For Decolonization) -) 1 applic NS BID [facility] Stop: 04/13/18 21:59 Last Admin: 04/10/18 09:34 Dose: 1 applic Tiotropium [place] (Spiriva -) 1 puff IH DAILY [facility] Last Admin: 04/10/18 09:25 Dose: 1 puff ASSESSMENT AND PLAN: Acute Hypoxic Respiratory Failure Volume Overload CKD CHF COPD Atrial Fibrillation h/o GI Bleed - IV lasix - monitor urine output, creatinine - keep net negative - taper off medrol, less likely COPD - inhaled bronchodilators - O2 to keep SpO2 >90% - BiPAP to assist in work of breathing - on empiric antibiotics - rate control with cardizem gtt - echocardiogram - DVT prophylaxis - continue ICU monitoring critical care time spent in reviewing chart, evaluating patient and formulating plan 35 min
--- NOTE | 2018-04-10 12:43 | PN ---
Progress Note, Physician History of Present Illness: Pt seen and examined at bedside. She is awake and alert. She is comfortable with the bipap. - Current Medication List Current Medications: Active Medications Chlorhexidine Gluconate (Hibiclens For Decolonization -) 1 applic TP HS [facility] Last Admin: 04/09/18 21:20 Dose: 1 applic Furosemide (Lasix Injection -) 40 mg IVPUSH BIDLASIX [facility] Last Admin: 04/10/18 05:27 Dose: 40 mg Heparin Sodium (Porcine) (Heparin -) 5,000 unit SQ TID [facility] Last Admin: 04/10/18 05:27 Dose: 5,000 unit Hydralazine HCl (Apresoline -) 25 mg PO BID [facility] Last Admin: 04/10/18 09:46 Dose: 25 mg Azithromycin 250 mg/ Dextrose 250 mls @ 250 mls/hr IVPB DAILY [facility] Last Admin: 04/10/18 11:14 Dose: 250 mls/hr Ceftriaxone Sodium 1 gm/ (Dextrose) 50 mls @ 100 mls/hr IVPB DAILY [facility]; Protocol Last Admin: 04/10/18 09:24 Dose: 100 mls/hr Diltiazem HCl 125 mg/ Dextrose 125 mls @ 5 mls/hr IVPB TITR [facility]; Protocol Last Titration: 04/10/18 11:14 Dose: 10 mg/hr, 10 mls/hr Insulin Aspart (Novolog Vial Sliding Scale -) 1 vial SQ ACHS [facility]; Protocol Last Admin: 04/10/18 07:00 Dose: 2 units Isosorbide Dinitrate (Isordil -) 10 mg PO BID [facility] Last Admin: 04/10/18 09:26 Dose: 10 mg Methylprednisolone Sodium Succinate (Solu-Medrol -) 40 mg IVPUSH BID [facility] Mupirocin (Bactroban Ointment (For Decolonization) -) 1 applic NS BID [facility] Stop: 04/13/18 21:59 Last Admin: 04/10/18 09:34 Dose: 1 applic Tiotropium [place] (Spiriva -) 1 puff IH DAILY [facility] Last Admin: 04/10/18 09:25 Dose: 1 puff - Objective Vital Signs: Vital Signs Temperature 98.6 F 04/10/18 04:00 Pulse Rate 93 H 04/10/18 08:25 Respiratory Rate 18 04/10/18 06:00 Blood Pressure 160/109 04/10/18 06:00 O2 Sat by Pulse Oximetry (%) 95 04/10/18 11:38 Constitutional: Yes: Calm Eyes: Yes: Conjunctiva Clear HENT: Yes: Atraumatic Cardiovascular: Yes: S1, S2 Respiratory: Yes: On BiPap Gastrointestinal: Yes: Soft, Abdomen, Obese Genitourinary: Yes: [place] Present Musculoskeletal: Yes: WNL Edema: Yes Edema: LLE: 2+, RLE: 2+ Neurological: Yes: Oriented Psychiatric: Yes: Oriented Labs: CBC, BMP 04/10/18 05:30 04/10/18 05:30 INR, PTT INR 1.04 (0.82-1.09) 04/08/18 15:40 - ....Imaging Chest X-ray: Report Reviewed Ultrasound: Report Reviewed Problem List - Problems (1) Acute respiratory failure with hypoxia Code(s): J96.01 - ACUTE RESPIRATORY FAILURE WITH HYPOXIA (2) CHF (congestive heart failure) Code(s): I50.9 - HEART FAILURE, UNSPECIFIED (3) CKD (chronic kidney disease) Code(s): N18.9 - CHRONIC KIDNEY DISEASE, UNSPECIFIED Qualifiers: Qualified Code(s): N18.9 - Chronic kidney disease, unspecified (4) Renal insufficiency Code(s): N28.9 - DISORDER OF KIDNEY AND URETER, UNSPECIFIED Assessment/Plan Current Medications Generic Name Dose Route Start Last Admin Trade Name Freq PRN Reason Stop Dose Admin Chlorhexidine Gluconate 1 applic 04/08/18 22:00 04/09/18 21:20 Hibiclens For Decolonization - TP 1 applic HS JIGNESH Administration Furosemide 40 mg 04/09/18 14:00 04/10/18 05:27 Lasix Injection - IVPUSH 40 mg BIDLASIX JIGNESH Administration Heparin Sodium (Porcine) 5,000 unit 04/08/18 20:16 04/10/18 05:27 Heparin - SQ 5,000 unit TID JIGNESH Administration Hydralazine HCl 25 mg 04/09/18 11:59 04/10/18 09:46 Apresoline - PO 25 mg BID JIGNESH Administration Azithromycin 250 mg/ Dextrose 250 mls @ 250 mls/hr 04/09/18 10:00 04/10/18 11 :14 IVPB 250 mls/hr DAILY JIGNESH Administration Ceftriaxone Sodium 1 gm/ 50 mls @ 100 mls/hr 04/09/18 10:00 04/10/18 09:24 Dextrose IVPB 100 mls/hr DAILY JIGNESH Administration Protocol Diltiazem HCl 125 mg/ Dextrose 125 mls @ 5 mls/hr 04/09/18 08:15 04/10/18 11: 14 IVPB 10 mg/hr TITR JIGNESH 10 mls/hr Titration Protocol 5 MG/HR Insulin Aspart 1 vial 04/08/18 22:00 04/10/18 07:00 Novolog Vial Sliding Scale - SQ 2 units ACHS JIGNESH Administration Protocol Isosorbide Dinitrate 10 mg 04/09/18 12:30 04/10/18 09:26 Isordil - PO 10 mg BID JIGNESH Administration Methylprednisolone Sodium Succinate 40 mg 04/10/18 22:00 Solu-Medrol - IVPUSH BID JIGNESH Mupirocin 1 applic 04/08/18 22:00 04/10/18 09:34 Bactroban Ointment (For Decolonization) - NS 04/13/18 21:59 1 applic BID JIGNESH Administration Tiotropium [place] 1 puff 04/08/18 20:45 04/10/18 09:25 Spiriva - IH 1 puff DAILY JIGNESH Administration Impression 1. CKD 2. CHF 3. resp failure requiring bipap 4. obesity 5. fluid overload 6. COPD 7. rapid a-fib Plan - cont to monitor renal function - pt has reduced LV function - kidneys are echogenic on ultrasound - cont with lasix - taper steroids as tolerated - repeat labs in am - check prt to electrical technician ratio - monitor volume status closely - monitor pulse ox - creatinine is rising however pt is fluid overloaded and will need to diurese - will follow closely - cont bipap as needed Dr Bach
--- NOTE | 2018-04-10 13:04 | PN ---
Physical Exam: SUBJECTIVE: Patient seen and examined. Says her breathing is better this morning. On Cardizem drip gtt Bipap OBJECTIVE: Vital Signs Period Temp Pulse Resp BP Sys/Stratton Pulse Ox Last 24 Hr 97.6 F-98.6 F 83-118 18-55 125-168/85-111 95-100 GENERAL: On bipap, in no acute distress. EYES:extraocular movements intact, sclera anicteric, conjunctiva clear. ENT: oropharynx clear without exudates, moist mucous membranes. LUNGS: scattered rhonchi, basilar rales HEART: irregularly irregular ABDOMEN: Soft, nontender, nondistended, normoactive bowel sounds EXTREMITIES: 2+ pulses, warm, pedal edema NEUROLOGICAL: Cranial nerves II through XII grossly intact. Laboratory Results - last 24 hr 04/10/18 04/10/18 04/10/18 05:30 05:30 06:00 WBC 7.2 D RBC 3.51 L Hgb 10.8 Hct 33.2 MCV 94.6 MCH 30.7 MCHC 32.5 RDW 17.1 H Plt Count 232 MPV 10.8 Puncture Site Left radial ABG pH 7.43 ABG pCO2 at Pt Temp 50.7 H ABG pO2 at Pt Temp 68.0 L D ABG HCO3 33.2 H ABG O2 Sat (Measured) 93.0 ABG O2 Content 14.5 L ABG Base Excess 8.0 H Lam Test Positive O2 Delivery Device Other Oxygen Flow Rate 70 Vent Mode S/t Vent Rate 12 Mechanical Rate Bipap Pressure Support Vent 12/5 Sodium 139 Potassium 4.0 Chloride 96 L Carbon Dioxide 33 H Anion Gap 10 BUN 63 H Creatinine 2.4 H Creat Clearance w eGFR 19.79 Random Glucose 187 H Calcium 8.7 Total Bilirubin 0.5 D AST 16 ALT 20 Alkaline Phosphatase 78 Total Protein 7.2 Albumin 3.2 L Active Medications Generic Name Dose Route Start Last Admin Trade Name Freq PRN Reason Stop Dose Admin Chlorhexidine Gluconate 1 applic 04/08/18 22:00 04/09/18 21:20 Hibiclens For Decolonization - TP 1 applic HS JIGNESH Administration Furosemide 40 mg 04/09/18 14:00 04/10/18 05:27 Lasix Injection - IVPUSH 40 mg BIDLASIX JIGNESH Administration Heparin Sodium (Porcine) 5,000 unit 04/08/18 20:16 04/10/18 05:27 Heparin - SQ 5,000 unit TID JIGNESH Administration Hydralazine HCl 25 mg 04/09/18 11:59 04/10/18 09:46 Apresoline - PO 25 mg BID JIGNESH Administration Azithromycin 250 mg/ Dextrose 250 mls @ 250 mls/hr 04/09/18 10:00 04/10/18 11 :14 IVPB 250 mls/hr DAILY JIGNESH Administration Ceftriaxone Sodium 1 gm/ 50 mls @ 100 mls/hr 04/09/18 10:00 04/10/18 09:24 Dextrose IVPB 100 mls/hr DAILY JIGNESH Administration Protocol Diltiazem HCl 125 mg/ Dextrose 125 mls @ 5 mls/hr 04/09/18 08:15 04/10/18 11: 14 IVPB 10 mg/hr TITR JIGNESH 10 mls/hr Titration Protocol 5 MG/HR Insulin Aspart 1 vial 04/08/18 22:00 04/10/18 07:00 Novolog Vial Sliding Scale - SQ 2 units ACHS JIGNESH Administration Protocol Isosorbide Dinitrate 10 mg 04/09/18 12:30 04/10/18 09:26 Isordil - PO 10 mg BID JIGNESH Administration Methylprednisolone Sodium Succinate 40 mg 04/10/18 22:00 Solu-Medrol - IVPUSH BID JIGNESH Mupirocin 1 applic 04/08/18 22:00 04/10/18 09:34 Bactroban Ointment (For Decolonization) - NS 04/13/18 21:59 1 applic BID JIGNESH Administration Tiotropium [place] 1 puff 04/08/18 20:45 04/10/18 09:25 Spiriva - IH 1 puff DAILY JIGNESH Administration ASSESSMENT/PLAN: PULMONARY #Acute hypoxic respiratory failure -likely due to volume overload -BiPap -IV Lasix 40mg IV BID -Strict I/o's -Daily weight -on home O2 -Solu-medrol, taper to 40mg BID -Spiriva -IV abx: Ceftriaxone, Azithromycin. Likely will stop tomorrow. CV #Rapid A-fib -Rate controlled, Cardizem gtt -Not on AG due to recent GI bleed -ECHO 04/10: Severe LV, RV dysfunction. EF 44%. -FU cardio reccs - Hold ASHLEIGH/ARB secondary to elevated creatinine #FEN No Iv fluids due to volume overload monitor lytes Full liquid diet #DVT hep sq Cont. ICU monitoring Visit type - Emergency Visit Emergency Visit: Yes ED Registration Date: 04/08/18 Care time: The patient presented to the Emergency Department on the above date and was hospitalized for further evaluation of their emergent condition. - New Patient This patient is new to me today: Yes Date on this admission: 04/10/18 - Critical Care Critical Care patient: Yes Total Critical Care Time (in minutes): 40 Critical Care Statement: The care of this patient involved high complexity decision making to prevent further life threatening deterioration of the patient 's condition and/or to evaluate & treat vital organ system(s) failure or risk of failure.
[2018-04-10] MEDS ORDERED: dilTIAZem HCL 125 MG/25 ML - 25 ML VIAL ONE (15:25)
[2018-04-10] MEDS ORDERED: dilTIAZem HCL 50 MG/10 ML - 10 ML VIAL ONE (15:25)
[2018-04-10] MEDS: DILTIAZEM INJECTION 125 MG in DEXTROSE 5%-WATER - 100 ML IVPB SCH (15:30)
[2018-04-10] MEDS: dilTIAZem HCL 30 MG TABLET (FP) PO SCH (18:00)
[2018-04-10 21:13] LABS: URINE CREATININE 95.1 mg/dL (20-320)
[2018-04-10 21:39] LABS: RATIO URIN PROTEIN/URIN CREAT 2.01 MG/DL
[2018-04-10] MEDS ORDERED: methylPREDNISolone NA SUCC 40 MG/1 ML VIAL IVPUSH SCH (22:00)
[2018-04-10] MEDS: METOPROLOL TARTRATE 25 MG TABLET (FP) PO SCH (22:24)
[2018-04-10] MEDS: CHLORHEXIDINE GLUCONATE 4% CLEANSER FOR DECOLONIZATION TP SCH (22:37)
[2018-04-10] MEDS ORDERED: ALBUTEROL SO4 0.083% IH SOL 2.5 MG/3 ML VIAL.NEB. NEB ONE (22:45)
[2018-04-10] MEDS ORDERED: ACETAMINOPHEN 325 MG TABLET (FP) PO ONE (23:00)
[2018-04-11] MEDS: dilTIAZem HCL 30 MG TABLET (FP) PO SCH ×2 (00:32→05:57)
[2018-04-11] MEDS ORDERED: dilTIAZem HCL 50 MG/10 ML - 10 ML VIAL ONE (03:21)
[2018-04-11] MEDS: hydrALAZINE HCL 25 MG TABLET (FP) PO SCH ×3 (04:00→22:18)
[2018-04-11] MEDS: FUROSEMIDE 40 MG/4 ML INJECTABLE VIAL IVPUSH SCH ×2 (05:56→14:00)
[2018-04-11] MEDS: HEPARIN NA (PORCINE) 5,000 UNITS/ML 1ML VIAL SQ SCH ×3 (05:56→22:18)
[2018-04-11] MEDS: INSULIN SLIDING SCALE (NOVOLOG) 1 VIAL SQ SCH ×4 (06:07→22:19)
[2018-04-11 06:12] LABS: HEMATOCRIT 34.6 % (32.4-45.2); HEMOGLOBIN 11.1 GM/dL (10.7-15.3); MCH 30.5 pg (25.7-33.7); MCHC 32.1 g/dl (32.0-36.0); MEAN CELL VOLUME 95.2 fl (80-96); MEAN PLT VOLUME 10.6 fl (7.5-11.1); PLATELET COUNT 239 K/MM3 (134-434); RBC 3.64 M/mm3 (3.60-5.2); RDW 17.3 % (11.6-15.6); WHITE BLOOD COUNT 7.9 K/mm3 (4.0-10.0)
[2018-04-11 06:39] LABS: ALBUMIN 3.2 g/dl (3.4-5.0); ANION GAP 9 (8-16); BLOOD UREA NITROGEN 70 mg/dL (7-18); CALCIUM 8.2 mg/dL (8.5-10.1); CHLORIDE 96 mmol/L (98-107); CO2 33 mmol/L (21-32); GLUCOSE,RANDOM 218 mg/dL (74-106); MAGNESIUM 2.3 mg/dL (1.8-2.4); PHOSPHOROUS 4.3 mg/dL (2.5-4.9); POTASSIUM 3.9 mmol/L (3.5-5.1); SODIUM 138 mmol/L (136-145)
[2018-04-11 06:42] LABS: ALK PHOS 79 U/L (45-117); BILIRUBIN,TOTAL 0.5 mg/dL (0.2-1.0); CREATININE 2.5 mg/dL (0.55-1.02); SGOT/AST 23 U/L (15-37); SGPT/ALT 26 U/L (12-78); TOT PROT 7.3 g/dl (6.4-8.2)
[2018-04-11 06:50] LABS: ARTERIAL BLD GAS O2 SATURATION 95.6 % (90-98.9); ARTERIAL BLOOD GAS PCO2 36.8 mmHg (35-45); ARTERIAL BLOOD GAS PO2 75.6 mmHg (70-100)
[2018-04-11 06:51] LABS: ALLENS TEST POSITIVE; ARTERIAL BLOOD GAS BASE EXCESS 8.9 meq/l (-2-2)
[2018-04-11 06:56] LABS: ARTERIAL BLOOD GAS pH 7.55 (7.35-7.45)
--- NOTE | 2018-04-11 08:06 | PN ---
Progress Note, Physician History of Present Illness: c/o sob no cp no palpitations - Current Medication List Current Medications: Active Medications Chlorhexidine Gluconate (Hibiclens For Decolonization -) 1 applic TP HS [facility] Last Admin: 04/10/18 22:37 Dose: 1 applic Diltiazem HCl (Cardizem -) 30 mg PO Q6HPO [facility] Last Admin: 04/11/18 05:57 Dose: 30 mg Furosemide (Lasix Injection -) 40 mg IVPUSH BIDLASIX [facility] Last Admin: 04/11/18 05:56 Dose: 40 mg Heparin Sodium (Porcine) (Heparin -) 5,000 unit SQ TID [facility] Last Admin: 04/11/18 05:56 Dose: 5,000 unit Hydralazine HCl (Apresoline -) 25 mg PO BID [facility] Last Admin: 04/11/18 04:00 Dose: 10 mg Azithromycin 250 mg/ Dextrose 250 mls @ 250 mls/hr IVPB DAILY [facility] Last Admin: 04/10/18 11:14 Dose: 250 mls/hr Ceftriaxone Sodium 1 gm/ (Dextrose) 50 mls @ 100 mls/hr IVPB DAILY [facility]; Protocol Last Admin: 04/10/18 09:24 Dose: 100 mls/hr Diltiazem HCl 125 mg/ Dextrose 125 mls @ 5 mls/hr IVPB TITR [facility]; Protocol Last Admin: 04/10/18 15:30 Dose: 10 mg/hr, 10 mls/hr Insulin Aspart (Novolog Vial Sliding Scale -) 1 vial SQ ACHS [facility]; Protocol Last Admin: 04/11/18 06:07 Dose: 4 units Isosorbide Dinitrate (Isordil -) 10 mg PO BID [facility] Last Admin: 04/10/18 22:37 Dose: 10 mg Methylprednisolone Sodium Succinate (Solu-Medrol -) 40 mg IVPUSH BID [facility] Last Admin: 04/10/18 22:24 Dose: 40 mg Metoprolol Tartrate (Lopressor -) 25 mg PO BID [facility] Last Admin: 04/10/18 22:24 Dose: 25 mg Mupirocin (Bactroban Ointment (For Decolonization) -) 1 applic NS BID [facility] Stop: 04/13/18 21:59 Last Admin: 04/10/18 22:24 Dose: 1 applic Tiotropium [place] (Spiriva -) 1 puff IH DAILY [facility] Last Admin: 04/10/18 09:25 Dose: 1 puff - Objective Vital Signs: Vital Signs Temperature 98.5 F 04/11/18 05:51 Pulse Rate 99 H 04/11/18 05:51 Respiratory Rate 23 04/11/18 05:51 Blood Pressure 141/102 04/11/18 05:51 O2 Sat by Pulse Oximetry (%) 94 L 04/11/18 03:32 Cardiovascular: Yes: S1, S2 Respiratory: Yes: CTA Bilaterally, On BiPap Gastrointestinal: Yes: Normal Bowel Sounds, Soft Labs: CBC, BMP 04/11/18 06:00 04/11/18 06:00 INR, PTT INR 1.04 (0.82-1.09) 04/08/18 15:40 Assessment/Plan - Problems (1) Rapid atrial fibrillation Assessment/Plan: -On cardizem drip -No AC due to history of GI bleed Code(s): I48.91 - UNSPECIFIED ATRIAL FIBRILLATION (2) CHF exacerbation Assessment/Plan: -Increase IV Lasix 80 mg bid -Strict I&O's -daily weight -low sodium diet -Seen by cardiology -Echo -Pulmonary on board Code(s): I50.9 - HEART FAILURE, UNSPECIFIED Qualifiers: Heart failure type: unspecified Qualified Code(s): I50.9 - Heart failure, unspecified (3) CKD (chronic kidney disease) Assessment/Plan: -Nephrology consult -Monitor trend -Has suspicious left renal mass from imaging done at [facility] medical records -repeat Renal/bladder U/S Code(s): N18.9 - CHRONIC KIDNEY DISEASE, UNSPECIFIED Qualifiers: Chronic kidney disease stage: unspecified stage Qualified Code(s): N18.9 - Chronic kidney disease, unspecified (4) Respiratory distress--copd Assessment/Plan: -On continous BIPAP -bronchodilators -increase solumedrol to q 6h Code(s): R06.03 - ACUTE RESPIRATORY DISTRESS
--- NOTE | 2018-04-11 08:19 | PN ---
Progress Note, Physician Chief Complaint: Pt A&Ox3; uncomfortable using Bipap mask; O2 sat 87%. History of Present Illness: 72 black woman PMH COPD, HTN, AF, morbid obesity, admitted from the [facility] after a recent lengthy stay at [facility]. She is currently admitted to our ICU with acute on chronic presumed diastolic CHF, uncontrolled HTN and rapid AF. As per patient and daughter Karlene, she was admitted to [facility] about 6 weeks ago with hematemesis, BRBPR requiring transfusions (taken off Plavix), ARF requiring temporary HD and CHF. As per daughter, no source of bleeding was found. - Current Medication List Current Medications: Active Medications Albuterol/Ipratropium (Duoneb -) 1 amp NEB RQID [facility] Chlorhexidine Gluconate (Hibiclens For Decolonization -) 1 applic TP HS [facility] Last Admin: 04/10/18 22:37 Dose: 1 applic Diltiazem HCl (Cardizem -) 30 mg PO Q6HPO [facility] Last Admin: 04/11/18 05:57 Dose: 30 mg Furosemide (Lasix Injection -) 80 mg IVPUSH BIDLASIX [facility] Heparin Sodium (Porcine) (Heparin -) 5,000 unit SQ TID [facility] Last Admin: 04/11/18 05:56 Dose: 5,000 unit Hydralazine HCl (Apresoline -) 25 mg PO BID [facility] Last Admin: 04/11/18 04:00 Dose: 10 mg Azithromycin 250 mg/ Dextrose 250 mls @ 250 mls/hr IVPB DAILY [facility] Last Admin: 04/10/18 11:14 Dose: 250 mls/hr Ceftriaxone Sodium 1 gm/ (Dextrose) 50 mls @ 100 mls/hr IVPB DAILY [facility]; Protocol Last Admin: 04/10/18 09:24 Dose: 100 mls/hr Diltiazem HCl 125 mg/ Dextrose 125 mls @ 5 mls/hr IVPB TITR [facility]; Protocol Last Admin: 04/10/18 15:30 Dose: 10 mg/hr, 10 mls/hr Insulin Aspart (Novolog Vial Sliding Scale -) 1 vial SQ ACHS [facility]; Protocol Last Admin: 04/11/18 06:07 Dose: 4 units Isosorbide Dinitrate (Isordil -) 10 mg PO BID [facility] Last Admin: 06/11/18 22:37 Dose: 10 mg Methylprednisolone Sodium Succinate (Solu-Medrol -) 40 mg IVPUSH QID [facility] Metoprolol Tartrate (Lopressor -) 25 mg PO BID [facility] Last Admin: 04/10/18 22:24 Dose: 25 mg Mupirocin (Bactroban Ointment (For Decolonization) -) 1 applic NS BID [facility] Stop: 04/13/18 21:59 Last Admin: 04/10/18 22:24 Dose: 1 applic - Objective Vital Signs: Vital Signs Temperature 98.5 F 04/11/18 05:51 Pulse Rate 99 H 04/11/18 05:51 Respiratory Rate 23 04/11/18 05:51 Blood Pressure 141/102 04/11/18 05:51 O2 Sat by Pulse Oximetry (%) 94 L 04/11/18 03:32 Labs: CBC, BMP 04/11/18 06:00 04/11/18 06:00 INR, PTT INR 1.04 (0.82-1.09) 04/08/18 15:40 Problem List - Problems (1) Acute on chronic systolic and diastolic heart failure, NYHA class 4 Assessment/Plan: Severely reduced LVEF on ECHO. Will discontinue diltiazem. Continue metoprolol, and increase dose as needed and tolerated. Plan on lisinopril Code(s): I50.43 - ACUTE ON CHRONIC COMBINED SYSTOLIC AND DIASTOLIC HRT FAIL (2) Acute exacerbation of COPD with asthma Code(s): J44.1 - CHRONIC OBSTRUCTIVE PULMONARY DISEASE W (ACUTE) EXACERBATION; J45.901 - UNSPECIFIED ASTHMA WITH (ACUTE) EXACERBATION (3) Acute respiratory failure with hypoxia Code(s): J96.01 - ACUTE RESPIRATORY FAILURE WITH HYPOXIA
[2018-04-11] MEDS: AZITHROMYCIN IVPB 250 MG in DEXTROSE 5%-WATER - 250 ML IVPB SCH (09:54)
[2018-04-11] MEDS ORDERED: cefTRIAXone SODIUM 1 GM VIAL ONE (10:27)
[2018-04-11] MEDS ORDERED: DEXTROSE 5%-WATER - 50 ML IVPB ONE (10:28)
[2018-04-11] MEDS: methylPREDNISolone NA SUCC 40 MG/1 ML VIAL IVPUSH SCH ×3 (10:39→22:18)
[2018-04-11] MEDS: METOPROLOL TARTRATE 25 MG TABLET (FP) PO SCH ×2 (10:39→22:18)
[2018-04-11] MEDS: CEFTRIAXONE 1 GM in DEXTROSE 5%-WATER - 50 ML IVPB SCH (10:40)
[2018-04-11] MEDS: ISOSORBIDE DINITRATE 10 MG TABLET (FP) PO SCH ×2 (10:42→22:18)
[2018-04-11] MEDS: MUPIROCIN 2% TOPICAL OINTMENT FOR DECOLONIZATION NS SCH ×2 (11:25→22:20)
--- NOTE | 2018-04-11 12:25 | PN ---
Teaching Attending Note Name of Resident: Lily Del Rio ATTENDING PHYSICIAN STATEMENT I saw and evaluated the patient. I reviewed the resident's note and discussed the case with the resident. I agree with the resident's findings and plan as documented. SUBJECTIVE: Pt seen and examined in the ICU. Remains on BiPAP. Episode of respiratory distress this AM. Lasix increased. Echocardiogram showing severely reduced LVEF. Off cardizem gtt with better rate control. OBJECTIVE: Vital Signs Period Temp Pulse Resp BP Sys/Stratton Pulse Ox Last 24 Hr 97.4 F-98.8 F 69-107 14-23 125-146/73-111 93-98 Intake & Output 04/08/18 04/09/18 04/10/18 04/11/18 23:59 23:59 23:59 23:59 Intake Total 680 1315 220 Output Total 200 1600 1150 400 Balance -200 -920 165 -180 Weight 97.522 kg 131.995 kg 133.158 kg Gen: mildly tachypneic on BiPAP Heart: irregular Lung: scattered rhonchi Abd: soft, nontender Ext: + edema CBC, BMP 04/11/18 06:00 04/11/18 06:00 Active Medications Albuterol/Ipratropium (Duoneb -) 1 amp NEB RQID JIGNESH Chlorhexidine Gluconate (Hibiclens For Decolonization -) 1 applic TP HS [facility] Last Admin: 04/10/18 22:37 Dose: 1 applic Furosemide (Lasix Injection -) 80 mg IVPUSH BIDLASIX JIGNESH Heparin Sodium (Porcine) (Heparin -) 5,000 unit SQ TID [facility]IGNESH Last Admin: 04/11/18 05:56 Dose: 5,000 unit Hydralazine HCl (Apresoline -) 25 mg PO BID [facility] Last Admin: 04/11/18 10:39 Dose: 25 mg Azithromycin 250 mg/ Dextrose 250 mls @ 250 mls/hr IVPB DAILY JIGNESH Last Admin: 04/11/18 09:54 Dose: 250 mls/hr Ceftriaxone Sodium 1 gm/ (Dextrose) 50 mls @ 100 mls/hr IVPB DAILY [facility]; Protocol Last Admin: 04/11/18 10:40 Dose: 100 mls/hr Insulin Aspart (Novolog Vial Sliding Scale -) 1 vial SQ ACHS JIGNESH; Protocol Last Admin: 04/11/18 11:35 Dose: 6 units Isosorbide Dinitrate (Isordil -) 10 mg PO BID [facility] Last Admin: 04/11/18 10:42 Dose: 10 mg Methylprednisolone Sodium Succinate (Solu-Medrol -) 40 mg IVPUSH BID [facility] Metoprolol Tartrate (Lopressor -) 25 mg PO BID [facility] Last Admin: 04/11/18 10:39 Dose: 25 mg Mupirocin (Bactroban Ointment (For Decolonization) -) 1 applic NS BID [facility] Stop: 04/13/18 21:59 Last Admin: 04/11/18 11:25 Dose: 1 applic ASSESSMENT AND PLAN: Acute Hypoxic Respiratory Failure Volume Overload Acute on Chronic Systolic Heart Failure CKD COPD Atrial Fibrillation h/o GI Bleed - agree with increased lasix - monitor urine output, creatinine - keep net negative - taper off medrol, less likely COPD - inhaled bronchodilators - O2 to keep SpO2 >90% - BiPAP to assist in work of breathing - on empiric antibiotics - rate control with metoprolol - DVT prophylaxis - continue ICU monitoring critical care time spent in reviewing chart, evaluating patient and formulating plan 35 min
--- NOTE | 2018-04-11 12:54 | PN ---
Physical Exam: SUBJECTIVE: Patient seen and examined. Remains on BiPap. Says her breathing has no changed since yesterday. Episode of respiratory distress this morning while off BiPap. Lasix increased to 80mg BID. OBJECTIVE: Vital Signs Period Temp Pulse Resp BP Sys/Stratton Pulse Ox Last 24 Hr 97.4 F-98.8 F 69-107 14-23 125-146/73-111 93-98 GENERAL: On bipap, in no acute distress. EYES:extraocular movements intact, sclera anicteric, conjunctiva clear. ENT: oropharynx clear without exudates, moist mucous membranes. LUNGS: scattered rhonchi, basilar rales HEART: irregularly irregular ABDOMEN: Soft, nontender, nondistended, normoactive bowel sounds EXTREMITIES: 2+ pulses, warm, pedal edema NEUROLOGICAL: Cranial nerves II through XII grossly intact. Laboratory Results - last 24 hr 04/09/18 04/09/18 04/09/18 00:21 06:08 11:17 WBC RBC Hgb Hct MCV MCH MCHC RDW Plt Count MPV Anticoagulation Therapy Puncture Site ABG pH ABG pCO2 at Pt Temp ABG pO2 at Pt Temp ABG HCO3 ABG O2 Sat (Measured) ABG O2 Content ABG Base Excess Lam Test O2 Delivery Device Oxygen Flow Rate Vent Mode Vent Rate Mechanical Rate PEEP Pressure Support Vent Sodium Potassium Chloride Carbon Dioxide Anion Gap BUN Creatinine Creat Clearance w eGFR POC Glucometer 231.96054 169.17133 225.90701 Random Glucose Calcium Phosphorus Magnesium Total Bilirubin AST ALT Alkaline Phosphatase Total Protein Albumin U Random Total Protein Urine Creatinine Protein/Creatinin Ratio 04/09/18 04/09/18 04/10/18 16:46 23:59 05:35 WBC RBC Hgb Hct MCV MCH MCHC RDW Plt Count MPV Anticoagulation Therapy Puncture Site ABG pH ABG pCO2 at Pt Temp ABG pO2 at Pt Temp ABG HCO3 ABG O2 Sat (Measured) ABG O2 Content ABG Base Excess Lam Test O2 Delivery Device Oxygen Flow Rate Vent Mode Vent Rate Mechanical Rate PEEP Pressure Support Vent Sodium Potassium Chloride Carbon Dioxide Anion Gap BUN Creatinine Creat Clearance w eGFR POC Glucometer 203.78790 230.30704 198.12174 Random Glucose Calcium Phosphorus Magnesium Total Bilirubin AST ALT Alkaline Phosphatase Total Protein Albumin U Random Total Protein Urine Creatinine Protein/Creatinin Ratio 04/10/18 04/10/18 04/10/18 12:29 17:58 20:30 WBC RBC Hgb Hct MCV MCH MCHC RDW Plt Count MPV Anticoagulation Therapy Puncture Site ABG pH ABG pCO2 at Pt Temp ABG pO2 at Pt Temp ABG HCO3 ABG O2 Sat (Measured) ABG O2 Content ABG Base Excess Lam Test O2 Delivery Device Oxygen Flow Rate Vent Mode Vent Rate Mechanical Rate PEEP Pressure Support Vent Sodium Potassium Chloride Carbon Dioxide Anion Gap BUN Creatinine Creat Clearance w eGFR POC Glucometer 275.74461 230.21442 Random Glucose Calcium Phosphorus Magnesium Total Bilirubin AST ALT Alkaline Phosphatase Total Protein Albumin U Random Total Protein 192 H Urine Creatinine 95.1 Protein/Creatinin Ratio 2.01 04/10/18 04/11/18 04/11/18 22:43 05:46 06:00 WBC RBC Hgb Hct MCV MCH MCHC RDW Plt Count MPV Anticoagulation Therapy No Result Required. Puncture Site Left radial ABG pH 7.55 H ABG pCO2 at Pt Temp 36.8 D ABG pO2 at Pt Temp 75.6 ABG HCO3 31.9 H ABG O2 Sat (Measured) 95.6 ABG O2 Content 13.7 L ABG Base Excess 8.9 H Lam Test Positive O2 Delivery Device Bipap Oxygen Flow Rate 60 Vent Mode No Result Required. Vent Rate 12 Mechanical Rate No Result Required. PEEP 0.0 Pressure Support Vent 12/5 Sodium Potassium Chloride Carbon Dioxide Anion Gap BUN Creatinine Creat Clearance w eGFR POC Glucometer 213.33950 232.69356 Random Glucose Calcium Phosphorus Magnesium Total Bilirubin AST ALT Alkaline Phosphatase Total Protein Albumin U Random Total Protein Urine Creatinine Protein/Creatinin Ratio 04/11/18 04/11/18 06:00 06:00 WBC 7.9 RBC 3.64 Hgb 11.1 Hct 34.6 MCV 95.2 MCH 30.5 MCHC 32.1 RDW 17.3 H Plt Count 239 MPV 10.6 Anticoagulation Therapy Puncture Site ABG pH ABG pCO2 at Pt Temp ABG pO2 at Pt Temp ABG HCO3 ABG O2 Sat (Measured) ABG O2 Content ABG Base Excess Lam Test O2 Delivery Device Oxygen Flow Rate Vent Mode Vent Rate Mechanical Rate PEEP Pressure Support Vent Sodium 138 Potassium 3.9 Chloride 96 L Carbon Dioxide 33 H Anion Gap 9 BUN 70 H Creatinine 2.5 H Creat Clearance w eGFR 18.88 POC Glucometer Random Glucose 218 H Calcium 8.2 L Phosphorus 4.3 Magnesium 2.3 Total Bilirubin 0.5 AST 23 ALT 26 Alkaline Phosphatase 79 Total Protein 7.3 Albumin 3.2 L U Random Total Protein Urine Creatinine Protein/Creatinin Ratio Active Medications Generic Name Dose Route Start Last Admin Trade Name [place] PRN Reason Stop Dose Admin Albuterol/Ipratropium 1 amp 04/11/18 12:00 Duoneb - NEB RQID JIGNESH Chlorhexidine Gluconate 1 applic 04/08/18 22:00 04/10/18 22:37 Hibiclens For Decolonization - TP 1 applic HS JIGNESH Administration Furosemide 80 mg 04/11/18 14:00 Lasix Injection - IVPUSH BIDLASIX JIGNESH Heparin Sodium (Porcine) 5,000 unit 04/08/18 20:16 04/11/18 05:56 Heparin - SQ 5,000 unit TID JIGNESH Administration Hydralazine HCl 25 mg 04/09/18 11:59 04/11/18 10:39 Apresoline - PO 25 mg BID JIGNESH Administration Azithromycin 250 mg/ Dextrose 250 mls @ 250 mls/hr 04/09/18 10:00 04/11/18 09 :54 IVPB 250 mls/hr DAILY JIGNESH Administration Ceftriaxone Sodium 1 gm/ 50 mls @ 100 mls/hr 04/09/18 10:00 04/11/18 10:40 Dextrose IVPB 100 mls/hr DAILY JIGNESH Administration Protocol Insulin Aspart 1 vial 04/08/18 22:00 04/11/18 11:35 Novolog Vial Sliding Scale - SQ 6 units ACHS JIGNESH Administration Protocol Isosorbide Dinitrate 10 mg 04/09/18 12:30 04/11/18 10:42 Isordil - PO 10 mg BID JIGNESH Administration Methylprednisolone Sodium Succinate 40 mg 04/11/18 22:00 Solu-Medrol - IVPUSH BID JIGNESH Metoprolol Tartrate 25 mg 04/10/18 22:00 04/11/18 10:39 Lopressor - PO 25 mg BID JIGNESH Administration Mupirocin 1 applic 04/08/18 22:00 04/11/18 11:25 Bactroban Ointment (For Decolonization) - NS 04/13/18 21:59 1 applic BID JIGNESH Administration ASSESSMENT/PLAN: PULMONARY #Acute hypoxic respiratory failure -likely due to volume overload -BiPap -IV Lasix 80mg IV BID -Strict I/o's -Daily weight -on home O2 -Solu-medrol 40mg BID -Spiriva -IV abx: Ceftriaxone, Azithromycin. CV #Rapid A-fib -Off cardizem gtt today -start Metoprolol 25mg BID, titrate as needed -Not on AG due to recent GI bleed -ECHO 04/10: Severe LV, RV dysfunction. EF 44%. -FU cardio reccs -Hold ASHLEIGH/ARB secondary to elevated creatinine -CKD -kidneys are echogenic on ultrasound -fu nephro reccs -creatinine is rising however pt is fluid overloaded and will need to diurese #FEN No Iv fluids due to volume overload monitor lytes Full liquid diet #DVT hep sq Cont. ICU monitoring Visit type - Emergency Visit Emergency Visit: Yes ED Registration Date: 04/08/18 Care time: The patient presented to the Emergency Department on the above date and was hospitalized for further evaluation of their emergent condition. - New Patient This patient is new to me today: Yes Date on this admission: 04/11/18 - Critical Care Critical Care patient: Yes Total Critical Care Time (in minutes): 40 Critical Care Statement: The care of this patient involved high complexity decision making to prevent further life threatening deterioration of the patient 's condition and/or to evaluate & treat vital organ system(s) failure or risk of failure.
--- NOTE | 2018-04-11 15:20 | PN ---
Progress Note, Physician History of Present Illness: Pt seen and examined at bedside. She still requires bipap. She does not feel much different than yesterday. - Current Medication List Current Medications: Active Medications Albuterol/Ipratropium (Duoneb -) 1 amp NEB RQID [facility] Chlorhexidine Gluconate (Hibiclens For Decolonization -) 1 applic TP HS [facility] Last Admin: 04/10/18 22:37 Dose: 1 applic Docusate Sodium (Colace -) 300 mg PO HS [facility] Furosemide (Lasix Injection -) 80 mg IVPUSH BIDLASIX [facility] Last Admin: 04/11/18 14:00 Dose: 80 mg Heparin Sodium (Porcine) (Heparin -) 5,000 unit SQ TID [facility] Last Admin: 04/11/18 14:00 Dose: 5,000 unit Hydralazine HCl (Apresoline -) 25 mg PO BID [facility] Last Admin: 04/11/18 10:39 Dose: 25 mg Azithromycin 250 mg/ Dextrose 250 mls @ 250 mls/hr IVPB DAILY [facility] Last Admin: 04/11/18 09:54 Dose: 250 mls/hr Ceftriaxone Sodium 1 gm/ (Dextrose) 50 mls @ 100 mls/hr IVPB DAILY [facility]; Protocol Last Admin: 04/11/18 10:40 Dose: 100 mls/hr Insulin Aspart (Novolog Vial Sliding Scale -) 1 vial SQ ACHS [facility]; Protocol Last Admin: 04/11/18 11:35 Dose: 6 units Isosorbide Dinitrate (Isordil -) 10 mg PO BID [facility] Last Admin: 04/11/18 10:42 Dose: 10 mg Methylprednisolone Sodium Succinate (Solu-Medrol -) 40 mg IVPUSH BID [facility] Metoprolol Tartrate (Lopressor -) 25 mg PO BID [facility] Last Admin: 04/11/18 10:39 Dose: 25 mg Mupirocin (Bactroban Ointment (For Decolonization) -) 1 applic NS BID [facility] Stop: 04/13/18 21:59 Last Admin: 04/11/18 11:25 Dose: 1 applic Senna (Senna -) 1 tab PO [facility] - Objective Vital Signs: Vital Signs Temperature 98.7 F 04/11/18 12:53 Pulse Rate 90 04/11/18 14:00 Respiratory Rate 19 04/11/18 14:00 Blood Pressure 138/93 04/11/18 14:00 O2 Sat by Pulse Oximetry (%) 95 04/11/18 14:37 Constitutional: Yes: Calm Eyes: Yes: Conjunctiva Clear Cardiovascular: Yes: S1, S2 Respiratory: Yes: On BiPap Gastrointestinal: Yes: Soft, Abdomen, Obese Genitourinary: Yes: [place] Present Musculoskeletal: Yes: Muscle Weakness Edema: Yes Edema: LLE: 2+, RLE: 2+ Neurological: Yes: Oriented Psychiatric: Yes: Oriented Labs: CBC, BMP 04/11/18 06:00 04/11/18 06:00 INR, PTT INR 1.04 (0.82-1.09) 04/08/18 15:40 - ....Imaging Chest X-ray: Report Reviewed Problem List - Problems (1) Acute respiratory failure with hypoxia Code(s): J96.01 - ACUTE RESPIRATORY FAILURE WITH HYPOXIA (2) CHF (congestive heart failure) Code(s): I50.9 - HEART FAILURE, UNSPECIFIED (3) CKD (chronic kidney disease) Code(s): N18.9 - CHRONIC KIDNEY DISEASE, UNSPECIFIED Qualifiers: Chronic kidney disease stage: unspecified stage Qualified Code(s): N18.9 - Chronic kidney disease, unspecified (4) Renal insufficiency Code(s): N28.9 - DISORDER OF KIDNEY AND URETER, UNSPECIFIED Assessment/Plan Current Medications Generic Name Dose Route Start Last Admin Trade Name Freq PRN Reason Stop Dose Admin Albuterol/Ipratropium 1 amp 04/11/18 12:00 Duoneb - NEB RQID JIGNESH Chlorhexidine Gluconate 1 applic 04/08/18 22:00 04/10/18 22:37 Hibiclens For Decolonization - TP 1 applic HS JIGNESH Administration Docusate Sodium 300 mg 04/11/18 22:00 Colace - PO HS JIGNESH Furosemide 80 mg 04/11/18 14:00 04/11/18 14:00 Lasix Injection - IVPUSH 80 mg BIDLASIX JIGNESH Administration Heparin Sodium (Porcine) 5,000 unit 04/08/18 20:16 04/11/18 14:00 Heparin - SQ 5,000 unit TID JIGNESH Administration Hydralazine HCl 25 mg 04/09/18 11:59 04/11/18 10:39 Apresoline - PO 25 mg BID JIGNESH Administration Azithromycin 250 mg/ Dextrose 250 mls @ 250 mls/hr 04/09/18 10:00 04/11/18 09 :54 IVPB 250 mls/hr DAILY JIGNESH Administration Ceftriaxone Sodium 1 gm/ 50 mls @ 100 mls/hr 04/09/18 10:00 04/11/18 10:40 Dextrose IVPB 100 mls/hr DAILY JIGNESH Administration Protocol Insulin Aspart 1 vial 04/08/18 22:00 04/11/18 11:35 Novolog Vial Sliding Scale - SQ 6 units ACHS JIGNESH Administration Protocol Isosorbide Dinitrate 10 mg 04/09/18 12:30 04/11/18 10:42 Isordil - PO 10 mg BID JIGNESH Administration Methylprednisolone Sodium Succinate 40 mg 04/11/18 22:00 Solu-Medrol - IVPUSH BID JIGNESH Metoprolol Tartrate 25 mg 04/10/18 22:00 04/11/18 10:39 Lopressor - PO 25 mg BID JIGNESH Administration Mupirocin 1 applic 04/08/18 22:00 04/11/18 11:25 Bactroban Ointment (For Decolonization) - NS 04/13/18 21:59 1 applic BID JIGNESH Administration Senna 1 tab 04/11/18 22:00 Senna - PO HS JIGNESH Impression 1. CKD 2. CHF 3. resp failure requiring bipap 4. obesity 5. fluid overload 6. COPD 7. rapid a-fib Plan - cont with IV lasix - monitor renal function - will evaluate for spironolactone tomorrow, will have to be careful with potassium - taper steroids as tolerated - repeat labs in am - check prt to mold injector ratio - monitor volume status closely - monitor pulse ox, she gets hypoxic off of bipap Dr Bach
[2018-04-11] MEDS: ALBUTEROL SO4 2.5/IPRATROPIUM 0.5 INH SOL 3 ML VIAL.NEB. NEB SCH ×3 (15:30→20:56)
[2018-04-11] MEDS ORDERED: PT OWN MED DRAWER 7, Y5N ONE (22:09)
[2018-04-11] MEDS: SENNOSIDES 8.6MG TABLET (FP) PO SCH (22:18)
[2018-04-11] MEDS: DOCUSATE SODIUM 100 MG CAPSULE (FP) PO SCH (22:18)
[2018-04-11] MEDS: NYSTATIN POWDER 100,000 UNITS/GM - 15 GM TOPICAL POWDER TP SCH (22:19)
[2018-04-11] MEDS: CHLORHEXIDINE GLUCONATE 4% CLEANSER FOR DECOLONIZATION TP SCH (22:21)
[2018-04-12] MEDS ORDERED: INSULIN (NOVOLOG) ASPART 100 UNITS/ML 10ML VIAL ONE (05:28)
[2018-04-12] MEDS: FUROSEMIDE 40 MG/4 ML INJECTABLE VIAL IVPUSH SCH ×3 (05:30→22:02)
[2018-04-12] MEDS: HEPARIN NA (PORCINE) 5,000 UNITS/ML 1ML VIAL SQ SCH ×3 (05:30→22:01)
[2018-04-12 06:09] LABS: HEMOGLOBIN 11.2 GM/dL (10.7-15.3); MCH 30.3 pg (25.7-33.7); MCHC 32.1 g/dl (32.0-36.0); MEAN CELL VOLUME 94.5 fl (80-96); MEAN PLT VOLUME 10.9 fl (7.5-11.1); PLATELET COUNT 261 K/MM3 (134-434); RBC 3.71 M/mm3 (3.60-5.2); RDW 17.4 % (11.6-15.6)
[2018-04-12] MEDS: INSULIN SLIDING SCALE (NOVOLOG) 1 VIAL SQ SCH ×4 (06:11→22:35)
[2018-04-12 06:43] LABS: ALBUMIN 3.2 g/dl (3.4-5.0); ANION GAP 10 (8-16); BILIRUBIN,TOTAL 0.5 mg/dL (0.2-1.0); BLOOD UREA NITROGEN 69 mg/dL (7-18); CALCIUM 8.1 mg/dL (8.5-10.1); CHLORIDE 95 mmol/L (98-107); CO2 33 mmol/L (21-32); CREATININE 2.4 mg/dL (0.55-1.02); GLUCOSE,RANDOM 215 mg/dL (74-106); MAGNESIUM 2.4 mg/dL (1.8-2.4); PHOSPHOROUS 4.4 mg/dL (2.5-4.9); POTASSIUM 4.1 mmol/L (3.5-5.1); SGOT/AST 24 U/L (15-37); SGPT/ALT 31 U/L (12-78); SODIUM 138 mmol/L (136-145); TOT PROT 7.3 g/dl (6.4-8.2)
[2018-04-12 06:44] LABS: ALK PHOS 80 U/L (45-117)
[2018-04-12] MEDS: ALBUTEROL SO4 2.5/IPRATROPIUM 0.5 INH SOL 3 ML VIAL.NEB. NEB SCH ×4 (07:50→21:00)
--- NOTE | 2018-04-12 08:33 | PN ---
Physical Exam: SUBJECTIVE: Patient seen and examined. Says her breathing is better compared to yesterday. Slept through the night. On bipap. OBJECTIVE: Vital Signs Period Temp Pulse Resp BP Sys/Stratton Pulse Ox Last 24 Hr 97.4 F-98.7 F 78-95 18-22 103-156/73-115 93-96 GENERAL: On bipap, in no acute distress. EYES:extraocular movements intact, sclera anicteric, conjunctiva clear. ENT: oropharynx clear without exudates, moist mucous membranes. LUNGS: scattered rhonchi, basilar rales HEART: RRR ABDOMEN: Soft, nontender, nondistended, normoactive bowel sounds EXTREMITIES: 2+ pulses, warm, pedal edema L>R NEUROLOGICAL: Cranial nerves II through XII grossly intact. Laboratory Results - last 24 hr 04/10/18 04/10/18 04/11/18 17:58 22:43 05:46 WBC RBC Hgb Hct MCV MCH MCHC RDW Plt Count MPV Sodium Potassium Chloride Carbon Dioxide Anion Gap BUN Creatinine Creat Clearance w eGFR POC Glucometer [phone] Random Glucose Calcium Phosphorus Magnesium Total Bilirubin AST ALT Alkaline Phosphatase Total Protein Albumin 04/12/18 04/12/18 05:55 05:55 WBC 9.0 RBC 3.71 Hgb 11.2 Hct 35.0 MCV 94.5 MCH 30.3 MCHC 32.1 RDW 17.4 H Plt Count 261 MPV 10.9 Sodium 138 Potassium 4.1 Chloride 95 L Carbon Dioxide 33 H Anion Gap 10 BUN 69 H Creatinine 2.4 H Creat Clearance w eGFR 19.79 POC Glucometer Random Glucose 215 H Calcium 8.1 L Phosphorus 4.4 Magnesium 2.4 Total Bilirubin 0.5 AST 24 ALT 31 Alkaline Phosphatase 80 Total Protein 7.3 Albumin 3.2 L Active Medications Generic Name Dose Route Start Last Admin Trade Name Freq PRN Reason Stop Dose Admin Albuterol/Ipratropium 1 amp 04/11/18 12:00 04/11/18 20:56 Duoneb - NEB 1 amp RQID JIGNESH Administration Chlorhexidine Gluconate 1 applic 04/08/18 22:00 04/11/18 22:21 Hibiclens For Decolonization - TP 1 applic HS JIGNESH Administration Docusate Sodium 300 mg 04/11/18 22:00 04/11/18 22:18 Colace - PO 300 mg HS JIGNESH Administration Furosemide 80 mg 04/11/18 14:00 04/12/18 05:30 Lasix Injection - IVPUSH 80 mg BIDLASIX JIGNESH Administration Heparin Sodium (Porcine) 5,000 unit 04/08/18 20:16 04/12/18 05:30 Heparin - SQ 5,000 unit TID JIGNESH Administration Hydralazine HCl 25 mg 04/09/18 11:59 04/11/18 22:18 Apresoline - PO 25 mg BID JIGNESH Administration Azithromycin 250 mg/ Dextrose 250 mls @ 250 mls/hr 04/09/18 10:00 04/11/18 09 :54 IVPB 250 mls/hr DAILY JIGN[facility] Administration Ceftriaxone Sodium 1 gm/ 50 mls @ 100 mls/hr 04/09/18 10:00 04/11/18 10:40 Dextrose IVPB 100 mls/hr DAILY JIGN[facility] Administration Protocol Insulin Aspart 1 vial 04/08/18 22:00 04/12/18 06:11 Novolog Vial Sliding Scale - SQ 4 units ACHS JIGNESH Administration Protocol Isosorbide Dinitrate 10 mg 04/09/18 12:30 04/11/18 22:18 Isordil - PO 10 mg BID JIGNESH Administration Methylprednisolone Sodium Succinate 40 mg 04/11/18 22:00 04/11/18 22:18 Solu-Medrol - IVPUSH 40 mg BID JIGNESH Administration Metoprolol Tartrate 25 mg 04/10/18 22:00 04/11/18 22:18 Lopressor - PO 25 mg BID JIGNESH Administration Mupirocin 1 applic 04/08/18 22:00 04/11/18 22:20 Bactroban Ointment (For Decolonization) - NS 04/13/18 21:59 1 applic BID JIGNESH Administration Nystatin 1 applic 04/11/18 19:15 04/11/18 22:19 Nystop Powder - TP 1 applic DAILY [facility] Administration Senna 1 tab 04/11/18 22:00 04/11/18 22:18 Senna - PO 1 tab HS [facility]IGNESH Administration ASSESSMENT/PLAN: PULMONARY #Acute hypoxic respiratory failure -likely due to volume overload -Will hold BiPap. Will start on HFNC. -Cont. IV Lasix 80mg IV BID -May start spironolactone. Follow potassium level -Strict I/o's -Daily weight -on home O2 -Solu-medrol 40mg Daily. Taper -Spiriva -IV abx: Ceftriaxone, Azithromycin. CV #Rapid A-fib -Off cardizem gtt yesterday -Increase to Metoprolol 50 mg BID, titrate as needed -Not on AG due to recent GI bleed -ECHO 04/10: Severe LV, RV dysfunction. EF 44%. -FU cardio reccs -Hold ASHLEIGH/ARB secondary to elevated creatinine -CKD -kidneys are echogenic on ultrasound -fu nephro reccs #FEN No Iv fluids due to volume overload monitor lytes Full liquid diet #DVT hep sq Visit type - Emergency Visit Emergency Visit: Yes ED Registration Date: 04/08/18 Care time: The patient presented to the Emergency Department on the above date and was hospitalized for further evaluation of their emergent condition. - New Patient This patient is new to me today: No - Critical Care Critical Care patient: Yes Total Critical Care Time (in minutes): 40 Critical Care Statement: The care of this patient involved high complexity decision making to prevent further life threatening deterioration of the patient 's condition and/or to evaluate & treat vital organ system(s) failure or risk of failure.
--- NOTE | 2018-04-12 08:36 | PN ---
Progress Note, Physician - Current Medication List Current Medications: Active Medications Albuterol/Ipratropium (Duoneb -) 1 amp NEB RQID [facility] Last Admin: 04/11/18 20:56 Dose: 1 amp Chlorhexidine Gluconate (Hibiclens For Decolonization -) 1 applic TP HS [facility] Last Admin: 04/11/18 22:21 Dose: 1 applic Docusate Sodium (Colace -) 300 mg PO HS [facility] Last Admin: 04/11/18 22:18 Dose: 300 mg Furosemide (Lasix Injection -) 80 mg IVPUSH BIDLASIX [facility] Last Admin: 04/12/18 05:30 Dose: 80 mg Heparin Sodium (Porcine) (Heparin -) 5,000 unit SQ TID [facility] Last Admin: 04/12/18 05:30 Dose: 5,000 unit Azithromycin 250 mg/ Dextrose 250 mls @ 250 mls/hr IVPB DAILY [facility] Last Admin: 04/11/18 09:54 Dose: 250 mls/hr Ceftriaxone Sodium 1 gm/ (Dextrose) 50 mls @ 100 mls/hr IVPB DAILY [facility]; Protocol Last Admin: 04/11/18 10:40 Dose: 100 mls/hr Insulin Aspart (Novolog Vial Sliding Scale -) 1 vial SQ ACHS [facility]; Protocol Last Admin: 04/12/18 06:11 Dose: 4 units Methylprednisolone Sodium Succinate (Solu-Medrol -) 40 mg IVPUSH BID [facility] Last Admin: 04/11/18 22:18 Dose: 40 mg Metoprolol Tartrate (Lopressor -) 25 mg PO BID [facility] Last Admin: 04/11/18 22:18 Dose: 25 mg Mupirocin (Bactroban Ointment (For Decolonization) -) 1 applic NS BID [facility] Stop: 04/13/18 21:59 Last Admin: 04/11/18 22:20 Dose: 1 applic Nystatin (Nystop Powder -) 1 applic TP DAILY [facility] Last Admin: 04/11/18 22:19 Dose: 1 applic Senna (Senna -) 1 tab PO HS [facility] Last Admin: 04/11/18 22:18 Dose: 1 tab - Objective Vital Signs: Vital Signs Temperature 97.4 F L 04/12/18 08:00 Pulse Rate 82 04/12/18 06:00 Respiratory Rate 22 04/12/18 08:00 Blood Pressure 149/108 04/12/18 08:00 O2 Sat by Pulse Oximetry (%) 94 L 04/12/18 03:47 Cardiovascular: Yes: S1, S2 Respiratory: Yes: On Nasal O2, Rales Gastrointestinal: Yes: Normal Bowel Sounds, Soft Labs: CBC, BMP 04/12/18 05:55 04/12/18 05:55 INR, PTT INR 1.04 (0.82-1.09) 04/08/18 15:40 Assessment/Plan - Problems (1) Rapid atrial fibrillation Assessment/Plan: -On cardizem drip -No AC due to history of GI bleed Code(s): I48.91 - UNSPECIFIED ATRIAL FIBRILLATION (2) CHF exacerbation Assessment/Plan: -Increase IV Lasix 80 mg bid -Strict I&O's -daily weight -low sodium diet -Seen by cardiology -Echo -Pulmonary on board Code(s): I50.9 - HEART FAILURE, UNSPECIFIED Qualifiers: Heart failure type: unspecified Qualified Code(s): I50.9 - Heart failure, unspecified (3) CKD (chronic kidney disease) Assessment/Plan: -Nephrology consult -Monitor trend -Has suspicious left renal mass from imaging done at [facility] records -repeat Renal/bladder U/S Code(s): N18.9 - CHRONIC KIDNEY DISEASE, UNSPECIFIED Qualifiers: Chronic kidney disease stage: unspecified stage Qualified Code(s): N18.9 - Chronic kidney disease, unspecified (4) Respiratory distress--copd Assessment/Plan: -On continous BIPAP -bronchodilators - solumedrol bid Code(s): R06.03 - ACUTE RESPIRATORY DISTRESS (5) HTN Assessment/Plan: -increase hydralazine 50 bid
[2018-04-12] MEDS ORDERED: cefTRIAXone SODIUM 1 GM VIAL ONE (09:40)
[2018-04-12] MEDS ORDERED: DEXTROSE 5%-WATER - 50 ML IVPB ONE (09:40)
[2018-04-12] MEDS: CEFTRIAXONE 1 GM in DEXTROSE 5%-WATER - 50 ML IVPB SCH (09:50)
[2018-04-12] MEDS: methylPREDNISolone NA SUCC 40 MG/1 ML VIAL IVPUSH SCH (09:54)
[2018-04-12] MEDS ORDERED: PT OWN MED DRAWER 7, Y5N ONE ×4 (10:19→18:56)
[2018-04-12] MEDS: hydrALAZINE HCL 50 MG TABLET (FP) PO SCH ×2 (10:22→22:04)
[2018-04-12] MEDS: METOPROLOL TARTRATE 25 MG TABLET (FP) PO SCH ×2 (10:24→22:01)
[2018-04-12] MEDS: ISOSORBIDE DINITRATE 20 MG TABLET (FP) PO SCH ×2 (10:24→18:57)
[2018-04-12] MEDS: AZITHROMYCIN IVPB 250 MG in DEXTROSE 5%-WATER - 250 ML IVPB SCH (10:30)
[2018-04-12] MEDS: NYSTATIN POWDER 100,000 UNITS/GM - 15 GM TOPICAL POWDER TP SCH (10:35)
[2018-04-12] MEDS: MUPIROCIN 2% TOPICAL OINTMENT FOR DECOLONIZATION NS SCH ×2 (10:36→22:05)
--- NOTE | 2018-04-12 11:28 | PN ---
Teaching Attending Note Name of Resident: Lily Del Rio ATTENDING PHYSICIAN STATEMENT I saw and evaluated the patient. I reviewed the resident's note and discussed the case with the resident. I agree with the resident's findings and plan as documented. SUBJECTIVE: Pt seen and examined in the ICU. Remains on BiPAP. States breathing about the same. No change in weight despite increased lasix. OBJECTIVE: Vital Signs Period Temp Pulse Resp BP Sys/Stratton Pulse Ox Last 24 Hr 97.4 F-98.7 F 78-95 18-22 103-158/73-115 94-96 Intake & Output 04/09/18 04/10/18 04/11/18 04/12/18 23:59 23:59 23:59 23:59 Intake Total 680 1315 1040 150 Output Total 1600 1150 850 900 Balance -920 165 190 -750 Weight 131.995 kg 133.158 kg 133.441 kg Gen: mildly tachypneic on BiPAP Heart: RRR Lung: scattered rhonchi Abd: soft, nontender Ext: + edema CBC, BMP 04/12/18 05:55 04/12/18 05:55 Active Medications Albuterol/Ipratropium (Duoneb -) 1 amp NEB RQID [facility] Last Admin: 04/12/18 07:50 Dose: 1 amp Chlorhexidine Gluconate (Hibiclens For Decolonization -) 1 applic TP HS [facility] Last Admin: 04/11/18 22:21 Dose: 1 applic Docusate Sodium (Colace -) 300 mg PO HS [facility] Last Admin: 04/11/18 22:18 Dose: 300 mg Furosemide (Lasix Injection -) 80 mg IVPUSH BIDLASIX [facility] Last Admin: 04/12/18 05:30 Dose: 80 mg Heparin Sodium (Porcine) (Heparin -) 5,000 unit SQ TID [facility]IGN[facility] Last Admin: 04/12/18 05:30 Dose: 5,000 unit Hydralazine HCl (Apresoline -) 50 mg PO BID [facility] Last Admin: 04/12/18 10:22 Dose: 50 mg Azithromycin 250 mg/ Dextrose 250 mls @ 250 mls/hr IVPB DAILY [facility] Last Admin: 04/12/18 10:30 Dose: 250 mls/hr Ceftriaxone Sodium 1 gm/ (Dextrose) 50 mls @ 100 mls/hr IVPB DAILY [facility]; Protocol Last Admin: 04/12/18 09:50 Dose: 100 mls/hr Insulin Aspart (Novolog Vial Sliding Scale -) 1 vial SQ ACHS [facility]; Protocol Last Admin: 04/12/18 06:11 Dose: 4 units Isosorbide Dinitrate (Isordil -) 20 mg PO BIDISORDIL [facility] Last Admin: 04/12/18 10:24 Dose: 20 mg Methylprednisolone Sodium Succinate (Solu-Medrol -) 40 mg IVPUSH DAILY [facility] Metoprolol Tartrate (Lopressor -) 50 mg PO BID [facility] Mupirocin (Bactroban Ointment (For Decolonization) -) 1 applic NS BID [facility] Stop: 04/13/18 21:59 Last Admin: 04/12/18 10:36 Dose: 1 applic Nystatin (Nystop Powder -) 1 applic TP DAILY [facility] Last Admin: 04/12/18 10:35 Dose: 1 applic Senna (Senna -) 1 tab PO HS [facility] Last Admin: 04/11/18 22:18 Dose: 1 tab ASSESSMENT AND PLAN: Acute Hypoxic Respiratory Failure Volume Overload Acute on Chronic Systolic Heart Failure CKD COPD Atrial Fibrillation h/o GI Bleed - continue lasix - monitor urine output, creatinine - keep net negative - taper off medrol, less likely COPD - inhaled bronchodilators - O2 to keep SpO2 >90% - BiPAP to assist in work of breathing - can attempt HFOT - on empiric antibiotics - increase rate control with metoprolol - DVT prophylaxis - continue ICU monitoring critical care time spent in reviewing chart, evaluating patient and formulating plan 35 min
--- NOTE | 2018-04-12 13:08 | PN ---
Progress Note, Physician History of Present Illness: Pt seen and examined at bedside. She still complains of shortness of breath. She has not lost weight and is not significantly negative. - Current Medication List Current Medications: Active Medications Albuterol/Ipratropium (Duoneb -) 1 amp NEB RQID [facility] Last Admin: 04/12/18 11:50 Dose: 1 amp Chlorhexidine Gluconate (Hibiclens For Decolonization -) 1 applic TP HS [facility] Last Admin: 04/11/18 22:21 Dose: 1 applic Docusate Sodium (Colace -) 300 mg PO HS [facility] Last Admin: 04/11/18 22:18 Dose: 300 mg Furosemide (Lasix Injection -) 80 mg IVPUSH BIDLASIX [facility] Last Admin: 04/12/18 05:30 Dose: 80 mg Heparin Sodium (Porcine) (Heparin -) 5,000 unit SQ TID [facility] Last Admin: 04/12/18 05:30 Dose: 5,000 unit Hydralazine HCl (Apresoline -) 50 mg PO BID [facility] Last Admin: 04/12/18 10:22 Dose: 50 mg Azithromycin 250 mg/ Dextrose 250 mls @ 250 mls/hr IVPB DAILY [facility] Last Admin: 04/12/18 10:30 Dose: 250 mls/hr Ceftriaxone Sodium 1 gm/ (Dextrose) 50 mls @ 100 mls/hr IVPB DAILY [facility]; Protocol Last Admin: 04/12/18 09:50 Dose: 100 mls/hr Insulin Aspart (Novolog Vial Sliding Scale -) 1 vial SQ ACHS [facility]; Protocol Last Admin: 04/12/18 11:51 Dose: 8 units Isosorbide Dinitrate (Isordil -) 20 mg PO BIDISORDIL [facility] Last Admin: 04/12/18 10:24 Dose: 20 mg Methylprednisolone Sodium Succinate (Solu-Medrol -) 40 mg IVPUSH DAILY [facility] Metoprolol Tartrate (Lopressor -) 50 mg PO BID [facility] Mupirocin (Bactroban Ointment (For Decolonization) -) 1 applic NS BID [facility] Stop: 04/13/18 21:59 Last Admin: 04/12/18 10:36 Dose: 1 applic Nystatin (Nystop Powder -) 1 applic TP DAILY [facility] Last Admin: 04/12/18 10:35 Dose: 1 applic Senna (Senna -) 1 tab PO HS [facility] Last Admin: 04/11/18 22:18 Dose: 1 tab - Objective Vital Signs: Vital Signs Temperature 97.4 F L 04/12/18 10:00 Pulse Rate 82 04/12/18 12:00 Respiratory Rate 20 04/12/18 12:00 Blood Pressure 150/109 04/12/18 12:00 O2 Sat by Pulse Oximetry (%) 89 L 04/12/18 12:38 Constitutional: Yes: Calm Eyes: Yes: Conjunctiva Clear HENT: Yes: Atraumatic Neck: Yes: Supple Cardiovascular: Yes: S1, S2 Respiratory: Yes: On Nasal O2, Rhonchi Gastrointestinal: Yes: Soft, Abdomen, Obese Genitourinary: Yes: Hurt Present Musculoskeletal: Yes: WNL Edema: Yes Edema: LLE: 3+, RLE: 3+ Neurological: Yes: Oriented Psychiatric: Yes: Oriented Labs: CBC, BMP 04/12/18 05:55 04/12/18 05:55 INR, PTT INR 1.04 (0.82-1.09) 04/08/18 15:40 - ....Imaging Chest X-ray: Report Reviewed Problem List - Problems (1) Acute respiratory failure with hypoxia Code(s): J96.01 - ACUTE RESPIRATORY FAILURE WITH HYPOXIA (2) CHF (congestive heart failure) Code(s): I50.9 - HEART FAILURE, UNSPECIFIED (3) CKD (chronic kidney disease) Code(s): N18.9 - CHRONIC KIDNEY DISEASE, UNSPECIFIED Qualifiers: Chronic kidney disease stage: unspecified stage Qualified Code(s): N18.9 - Chronic kidney disease, unspecified (4) Renal insufficiency Code(s): N28.9 - DISORDER OF KIDNEY AND URETER, UNSPECIFIED Assessment/Plan Current Medications Generic Name Dose Route Start Last Admin Trade Name Freq PRN Reason Stop Dose Admin Albuterol/Ipratropium 1 amp 04/11/18 12:00 04/12/18 11:50 Duoneb - NEB 1 amp RQID JGINESH Administration Chlorhexidine Gluconate 1 applic 04/08/18 22:00 04/11/18 22:21 Hibiclens For Decolonization - TP 1 applic HS JIGNESH Administration Docusate Sodium 300 mg 04/11/18 22:00 04/11/18 22:18 Colace - PO 300 mg HS JINGESH Administration Furosemide 80 mg 04/11/18 14:00 04/12/18 05:30 Lasix Injection - IVPUSH 80 mg BIDLASIX JIGNESH Administration Heparin Sodium (Porcine) 5,000 unit 04/08/18 20:16 04/12/18 05:30 Heparin - SQ 5,000 unit TID JIGNESH Administration Hydralazine HCl 50 mg 04/12/18 10:15 04/12/18 10:22 Apresoline - PO 50 mg BID JIGNESH Administration Azithromycin 250 mg/ Dextrose 250 mls @ 250 mls/hr 04/09/18 10:00 04/12/18 10 :30 IVPB 250 mls/hr DAILY JIGNESH Administration Ceftriaxone Sodium 1 gm/ 50 mls @ 100 mls/hr 04/09/18 10:00 04/12/18 09:50 Dextrose IVPB 100 mls/hr DAILY JIGNESH Administration Protocol Insulin Aspart 1 vial 04/08/18 22:00 04/12/18 11:51 Novolog Vial Sliding Scale - SQ 8 units ACHS JIGNESH Administration Protocol Isosorbide Dinitrate 20 mg 04/12/18 11:00 04/12/18 10:24 Isordil - PO 20 mg BIDISORDIL JIGNESH Administration Methylprednisolone Sodium Succinate 40 mg 04/13/18 10:00 Solu-Medrol - IVPUSH DAILY JIGNESH Metoprolol Tartrate 50 mg 04/12/18 11:03 Lopressor - PO BID JIGNESH Mupirocin 1 applic 04/08/18 22:00 04/12/18 10:36 Bactroban Ointment (For Decolonization) - NS 04/13/18 21:59 1 applic BID JIGNESH Administration Nystatin 1 applic 04/11/18 19:15 04/12/18 10:35 Nystop Powder - TP 1 applic DAILY JIGNESH Administration Senna 1 tab 04/11/18 22:00 04/11/18 22:18 Senna - PO 1 tab HS JIGNESH Administration Selected Entries 04/10/18 04/10/18 04/11/18 06:00 13:42 05:38 Weight 291 lb 291 lb 293 lb 9 oz 04/12/18 05:44 Weight 294 lb 3 oz Impression 1. CKD 2. CHF 3. resp failure requiring bipap 4. obesity 5. fluid overload 6. COPD 7. rapid a-fib Plan - weight is not improving - will increase dose of lasix for today - will give dose of spironolactone with close monitoring of potassium (if rises with use metolazone) - discussed with ICU team - maintain hurt and monitor output - monitor renal function - may need HD for UF if diuretics fail - plan discussed with pt - monitor volume status closely - monitor pulse ox Dr Bach
[2018-04-12] MEDS ORDERED: SPIRONOLACTONE 25 MG TABLET (FP) PO ONE (14:15)
--- NOTE | 2018-04-12 14:39 | PN ---
Progress Note, Physician History of Present Illness: In summary, 72F PMH COPD, HTN, AF admitted from the intermediate after a recent lengthy stay at [facility]. She is currently admitted to our ICU with acute on chronic presumed diastolic CHF, uncontrolled HTN and rapid AF. As per patient and daughter Karlene, she was admitted to [facility] about 6 weeks ago with hematemesis, BRBPR requiring transfusions (taken off Plavix), ARF requiring temporary HD and CHF. As per daughter, no source of bleeding was found. - Current Medication List Current Medications: Active Medications Albuterol/Ipratropium (Duoneb -) 1 amp NEB RQID [facility] Last Admin: 04/12/18 11:50 Dose: 1 amp Chlorhexidine Gluconate (Hibiclens For Decolonization -) 1 applic TP HS [facility] Last Admin: 04/11/18 22:21 Dose: 1 applic Docusate Sodium (Colace -) 300 mg PO HS [facility] Last Admin: 04/11/18 22:18 Dose: 300 mg Furosemide (Lasix Injection -) 80 mg IVPUSH TID@0600,1200,1800 [facility] Heparin Sodium (Porcine) (Heparin -) 5,000 unit SQ TID [facility] Last Admin: 04/12/18 13:58 Dose: 5,000 unit Hydralazine HCl (Apresoline -) 50 mg PO BID [facility] Last Admin: 04/12/18 10:22 Dose: 50 mg Azithromycin 250 mg/ Dextrose 250 mls @ 250 mls/hr IVPB DAILY [facility] Last Admin: 04/12/18 10:30 Dose: 250 mls/hr Ceftriaxone Sodium 1 gm/ (Dextrose) 50 mls @ 100 mls/hr IVPB DAILY [facility]; Protocol Last Admin: 04/12/18 09:50 Dose: 100 mls/hr Insulin Aspart (Novolog Vial Sliding Scale -) 1 vial SQ ACHS [facility]; Protocol Last Admin: 04/12/18 11:51 Dose: 8 units Isosorbide Dinitrate (Isordil -) 20 mg PO BIDISORDIL [facility] Last Admin: 04/12/18 10:24 Dose: 20 mg Methylprednisolone Sodium Succinate (Solu-Medrol -) 40 mg IVPUSH DAILY [facility] Metoprolol Tartrate (Lopressor -) 50 mg PO BID [facility] Mupirocin (Bactroban Ointment (For Decolonization) -) 1 applic NS BID [facility] Stop: 04/13/18 21:59 Last Admin: 04/12/18 10:36 Dose: 1 applic Nystatin (Nystop Powder -) 1 applic TP DAILY [facility] Last Admin: 04/12/18 10:35 Dose: 1 applic Senna (Senna -) 1 tab PO HS [facility] Last Admin: 04/11/18 22:18 Dose: 1 tab - Objective Vital Signs: Vital Signs Temperature 97.6 F 04/12/18 14:00 Pulse Rate 84 04/12/18 14:00 Respiratory Rate 20 04/12/18 14:00 Blood Pressure 152/111 04/12/18 14:00 O2 Sat by Pulse Oximetry (%) 89 L 04/12/18 12:38 Eyes: Yes: WNL, Conjunctiva Clear, EOM Intact HENT: Yes: WNL, Atraumatic, Normocephalic Neck: Yes: WNL, Supple, Trachea Midline Cardiovascular: Yes: Pulse Irregular Respiratory: Yes: WNL, Regular, CTA Bilaterally Gastrointestinal: Yes: WNL, Normal Bowel Sounds Genitourinary: Yes: WNL Musculoskeletal: Yes: WNL Extremities: Yes: WNL Edema: No Integumentary: Yes: WNL Neurological: Yes: WNL, Alert, Oriented ...Motor Strength: WNL Psychiatric: Yes: WNL Labs: CBC, BMP 04/12/18 05:55 04/12/18 05:55 INR, PTT INR 1.04 (0.82-1.09) 04/08/18 15:40 Assessment/Plan In summary, 72F PMH COPD, HTN, AF admitted from the intermediate after a recent lengthy stay at [facility]. She is currently admitted to our ICU with acute on chronic presumed diastolic CHF, uncontrolled HTN and rapid AF. As per patient and daughter Karlene, she was admitted to [facility] about 6 weeks ago with hematemesis, BRBPR requiring transfusions (taken off Plavix), ARF requiring temporary HD and CHF. As per daughter, no source of bleeding was found. - Problems (1) Acute on chronic systolic and diastolic heart failure, NYHA class 4 Assessment/Plan: Severely reduced LVEF on ECHO. stable on increased dose of metoprolol, and increase dose as needed and tolerated. Plan on lisinopril Code(s): I50.43 - ACUTE ON CHRONIC COMBINED SYSTOLIC AND DIASTOLIC HRT FAIL (2) Acute exacerbation of COPD with asthma Code(s): J44.1 - CHRONIC OBSTRUCTIVE PULMONARY DISEASE W (ACUTE) EXACERBATION; J45.901 - UNSPECIFIED ASTHMA WITH (ACUTE) EXACERBATION (3) Acute respiratory failure with hypoxia Code(s): J96.01 - ACUTE RESPIRATORY FAILURE WITH HYPOXIA CC time spent 37 min
[2018-04-12] MEDS ORDERED: FUROSEMIDE 40 MG/4 ML INJECTABLE VIAL ONE (16:33)
[2018-04-12] MEDS: DOCUSATE SODIUM 100 MG CAPSULE (FP) PO SCH (22:01)
[2018-04-12] MEDS: SENNOSIDES 8.6MG TABLET (FP) PO SCH (22:01)
[2018-04-12] MEDS: CHLORHEXIDINE GLUCONATE 4% CLEANSER FOR DECOLONIZATION TP SCH (22:02)
[2018-04-13] MEDS ORDERED: PT OWN MED DRAWER 7, Y5N ONE (07:58)
[2018-04-13] MEDS ORDERED: cefTRIAXone SODIUM 1 GM VIAL ONE (07:58)
[2018-04-13] MEDS ORDERED: DEXTROSE 5%-WATER - 50 ML IVPB ONE (07:59)
[2018-04-13] MEDS: ALBUTEROL SO4 2.5/IPRATROPIUM 0.5 INH SOL 3 ML VIAL.NEB. NEB SCH ×4 (08:00→20:50)
[2018-04-13 08:56] LABS: ALBUMIN 2.8 g/dl (3.4-5.0); ALK PHOS 71 U/L (45-117); ANION GAP 11 (8-16); BILIRUBIN,TOTAL 0.4 mg/dL (0.2-1.0); BLOOD UREA NITROGEN 75 mg/dL (7-18); CALCIUM 7.8 mg/dL (8.5-10.1); CHLORIDE 95 mmol/L (98-107); CO2 32 mmol/L (21-32); CREATININE 2.1 mg/dL (0.55-1.02); GLUCOSE,RANDOM 180 mg/dL (74-106); PHOSPHOROUS 4.5 mg/dL (2.5-4.9); SGPT/ALT 28 U/L (12-78); SODIUM 138 mmol/L (136-145); TOT PROT 6.8 g/dl (6.4-8.2)
[2018-04-13 09:02] LABS: HEMATOCRIT 34.7 % (32.4-45.2); HEMOGLOBIN 11.1 GM/dL (10.7-15.3); MCH 30.3 pg (25.7-33.7); MEAN CELL VOLUME 94.5 fl (80-96); PLATELET COUNT 232 K/MM3 (134-434); RBC 3.67 M/mm3 (3.60-5.2); RDW 17.1 % (11.6-15.6); WHITE BLOOD COUNT 10.3 K/mm3 (4.0-10.0)
[2018-04-13] MEDS: hydrALAZINE HCL 50 MG TABLET (FP) PO SCH ×2 (09:08→21:24)
[2018-04-13] MEDS: METOPROLOL TARTRATE 25 MG TABLET (FP) PO SCH (09:10)
[2018-04-13] MEDS: NYSTATIN POWDER 100,000 UNITS/GM - 15 GM TOPICAL POWDER TP SCH (09:11)
[2018-04-13] MEDS: CEFTRIAXONE 1 GM in DEXTROSE 5%-WATER - 50 ML IVPB SCH (09:11)
[2018-04-13] MEDS: FUROSEMIDE 40 MG/4 ML INJECTABLE VIAL IVPUSH SCH ×3 (09:12→18:08)
[2018-04-13] MEDS: MUPIROCIN 2% TOPICAL OINTMENT FOR DECOLONIZATION NS SCH (09:12)
[2018-04-13] MEDS: HEPARIN NA (PORCINE) 5,000 UNITS/ML 1ML VIAL SQ SCH ×3 (09:12→21:24)
[2018-04-13] MEDS: INSULIN SLIDING SCALE (NOVOLOG) 1 VIAL SQ SCH ×4 (09:13→21:25)
[2018-04-13 09:22] LABS: POTASSIUM 4.4 mmol/L (3.5-5.1)
[2018-04-13 09:23] LABS: MAGNESIUM 2.3 mg/dL (1.8-2.4); SGOT/AST 25 U/L (15-37)
[2018-04-13] MEDS: ISOSORBIDE DINITRATE 20 MG TABLET (FP) PO SCH ×2 (09:26→18:08)
[2018-04-13] MEDS: AZITHROMYCIN IVPB 250 MG in DEXTROSE 5%-WATER - 250 ML IVPB SCH (09:27)
--- NOTE | 2018-04-13 09:40 | PN ---
Progress Note, Physician Chief Complaint: Pt A&Ox3; had "a rough night" with breathing; feels more comfortable when changed from BIpap. History of Present Illness: 72 black woman PMH COPD, HTN, AF, morbid obesity, admitted from the group home after a recent lengthy stay at [facility]. She is currently admitted to our ICU with acute on chronic presumed diastolic CHF, uncontrolled HTN and rapid AF. As per patient and daughter Karlene, she was admitted to [facility] about 6 weeks ago with hematemesis, BRBPR requiring transfusions (taken off Plavix), ARF requiring temporary HD and CHF. As per daughter, no source of bleeding was found. - Current Medication List Current Medications: Active Medications Albuterol/Ipratropium (Duoneb -) 1 amp NEB RQID [facility] Last Admin: 04/12/18 21:00 Dose: 1 amp Chlorhexidine Gluconate (Hibiclens For Decolonization -) 1 applic TP HS [facility] Last Admin: 04/12/18 22:02 Dose: 1 applic Docusate Sodium (Colace -) 300 mg PO HS [facility] Last Admin: 04/12/18 22:01 Dose: 300 mg Furosemide (Lasix Injection -) 80 mg IVPUSH TID@0600,1200,1800 [facility] Last Admin: 04/12/18 22:02 Dose: 80 mg Heparin Sodium (Porcine) (Heparin -) 5,000 unit SQ TID [facility] Last Admin: 04/12/18 22:01 Dose: 5,000 unit Hydralazine HCl (Apresoline -) 50 mg PO BID [facility] Last Admin: 04/12/18 22:04 Dose: 50 mg Azithromycin 250 mg/ Dextrose 250 mls @ 250 mls/hr IVPB DAILY [facility] Last Admin: 04/12/18 10:30 Dose: 250 mls/hr Ceftriaxone Sodium 1 gm/ (Dextrose) 50 mls @ 100 mls/hr IVPB DAILY [facility]; Protocol Last Admin: 04/12/18 09:50 Dose: 100 mls/hr Insulin Aspart (Novolog Vial Sliding Scale -) 1 vial SQ ACHS [facility]; Protocol Last Admin: 04/12/18 22:35 Dose: 10 units Isosorbide Dinitrate (Isordil -) 20 mg PO BIDISORDIL [facility] Last Admin: 04/12/18 18:57 Dose: 20 mg Methylprednisolone Sodium Succinate (Solu-Medrol -) 40 mg IVPUSH DAILY [facility] Metoprolol Tartrate (Lopressor -) 50 mg PO BID [facility] Last Admin: 04/12/18 22:01 Dose: 50 mg Mupirocin (Bactroban Ointment (For Decolonization) -) 1 applic NS BID [facility] Stop: 04/13/18 21:59 Last Admin: 04/12/18 22:05 Dose: 1 applic Nystatin (Nystop Powder -) 1 applic TP DAILY [facility] Last Admin: 04/12/18 10:35 Dose: 1 applic Senna (Senna -) 1 tab PO HS [facility] Last Admin: 04/12/18 22:01 Dose: 1 tab - Objective Vital Signs: Vital Signs Temperature 98.6 F 04/13/18 00:00 Pulse Rate 89 04/13/18 00:00 Respiratory Rate 14 04/13/18 00:00 Blood Pressure 137/90 04/13/18 00:00 O2 Sat by Pulse Oximetry (%) 92 L 04/12/18 21:21 Constitutional: Yes: No Distress, Obese Eyes: Yes: WNL HENT: Yes: WNL Neck: Yes: WNL Cardiovascular: Yes: Murmur, S1 (varies in intensity), S2 Respiratory: Yes: Diminished Gastrointestinal: Yes: Soft, Abdomen, Obese ...Rectal Exam: Yes: Deferred Genitourinary: No: Anuria Breast(s): Yes: WNL Musculoskeletal: Yes: Muscle Weakness Extremities: Yes: Cool Edema: No Peripheral Pulses WNL: Yes Integumentary: Yes: WNL Neurological: Yes: Alert, Oriented Psychiatric: Yes: WNL Labs: CBC, BMP 04/12/18 05:55 04/12/18 05:55 INR, PTT INR 1.04 (0.82-1.09) 04/08/18 15:40 Abnormal Lab Results 04/13/18 04/14/18 04/14/18 06:00 05:50 05:50 WBC 10.7 H RDW 16.8 H Neutrophils % 83.6 H Nucleated RBC % 1 H Chloride 96 L Carbon Dioxide 33 H BUN 86 H Creatinine 2.2 H Random Glucose 68 L Calcium 8.0 L Albumin 3.0 L Cholesterol 265 H Total LDL Cholesterol 171 H HDL Cholesterol 63 H Problem List - Problems (1) Acute on chronic systolic and diastolic heart failure, NYHA class 4 Assessment/Plan: Severely reduced LVEF on ECHO. Stopped diltiazem. Continue metoprolol, and increased dose to 75 mg bid due to periods of AF with RVR and elevated BP. Unable to start ACEI, ARB, or RAAS due to renal dysfunctio (though pt responded well to one alexis of aldactone for diuresis). Continue hydralazine + isordil. F/u BUN/Cr, electrolytes, daily wt, Is and Os. Code(s): I50.43 - ACUTE ON CHRONIC COMBINED SYSTOLIC AND DIASTOLIC HRT FAIL (2) Acute exacerbation of COPD with asthma Code(s): J44.1 - CHRONIC OBSTRUCTIVE PULMONARY DISEASE W (ACUTE) EXACERBATION; J45.901 - UNSPECIFIED ASTHMA WITH (ACUTE) EXACERBATION (3) Acute respiratory failure with hypoxia Assessment/Plan: now off BiPap; on Rapid flow Code(s): J96.01 - ACUTE RESPIRATORY FAILURE WITH HYPOXIA (4) HTN (hypertension) Code(s): I10 - ESSENTIAL (PRIMARY) HYPERTENSION Qualifiers: Hypertension type: unspecified Qualified Code(s): I10 - Essential (primary ) hypertension (5) Diabetes Code(s): E11.9 - TYPE 2 DIABETES MELLITUS WITHOUT COMPLICATIONS (6) Morbid obesity Assessment/Plan: discussed need to change diet, lose weight. Nutirtional counseling would be of benefit. Code(s): E66.01 - MORBID (SEVERE) OBESITY DUE TO EXCESS CALORIES (7) Hyperlipidemia Assessment/Plan: f/u lipid panel; start statin (Multiple CAD risks; DM). Code(s): E78.5 - HYPERLIPIDEMIA, UNSPECIFIED (8) Glaucoma Assessment/Plan: on TImoptic Code(s): H40.9 - UNSPECIFIED GLAUCOMA Assessment/Plan ccu time spent examining pt, formulating plan: 40 minutes.
--- NOTE | 2018-04-13 09:40 | PN ---
Progress Note, Physician - Current Medication List Current Medications: Active Medications Albuterol/Ipratropium (Duoneb -) 1 amp NEB RQID [facility] Last Admin: 04/12/18 21:00 Dose: 1 amp Chlorhexidine Gluconate (Hibiclens For Decolonization -) 1 applic TP HS [facility] Last Admin: 04/12/18 22:02 Dose: 1 applic Docusate Sodium (Colace -) 300 mg PO HS [facility] Last Admin: 04/12/18 22:01 Dose: 300 mg Furosemide (Lasix Injection -) 80 mg IVPUSH TID@0600,1200,1800 [facility] Last Admin: 04/12/18 22:02 Dose: 80 mg Heparin Sodium (Porcine) (Heparin -) 5,000 unit SQ TID [facility] Last Admin: 04/12/18 22:01 Dose: 5,000 unit Hydralazine HCl (Apresoline -) 50 mg PO BID [facility] Last Admin: 04/12/18 22:04 Dose: 50 mg Azithromycin 250 mg/ Dextrose 250 mls @ 250 mls/hr IVPB DAILY [facility] Last Admin: 04/12/18 10:30 Dose: 250 mls/hr Ceftriaxone Sodium 1 gm/ (Dextrose) 50 mls @ 100 mls/hr IVPB DAILY [facility]; Protocol Last Admin: 04/12/18 09:50 Dose: 100 mls/hr Insulin Aspart (Novolog Vial Sliding Scale -) 1 vial SQ ACHS [facility]; Protocol Last Admin: 04/12/18 22:35 Dose: 10 units Isosorbide Dinitrate (Isordil -) 20 mg PO BIDISORDIL [facility] Last Admin: 04/12/18 18:57 Dose: 20 mg Methylprednisolone Sodium Succinate (Solu-Medrol -) 40 mg IVPUSH DAILY [facility] Metoprolol Tartrate (Lopressor -) 50 mg PO BID [facility] Last Admin: 04/12/18 22:01 Dose: 50 mg Mupirocin (Bactroban Ointment (For Decolonization) -) 1 applic NS BID [facility] Stop: 04/13/18 21:59 Last Admin: 04/12/18 22:05 Dose: 1 applic Nystatin (Nystop Powder -) 1 applic TP DAILY [facility] Last Admin: 04/12/18 10:35 Dose: 1 applic Senna (Senna -) 1 tab PO HS [facility] Last Admin: 04/12/18 22:01 Dose: 1 tab - Objective Vital Signs: Vital Signs Temperature 98.6 F 04/13/18 00:00 Pulse Rate 89 04/13/18 00:00 Respiratory Rate 14 04/13/18 00:00 Blood Pressure 137/90 04/13/18 00:00 O2 Sat by Pulse Oximetry (%) 92 L 04/12/18 21:21 Cardiovascular: Yes: S1, S2 Gastrointestinal: Yes: Normal Bowel Sounds, Soft. No: Tenderness Labs: CBC, BMP 04/13/18 05:55 04/12/18 05:55 INR, PTT INR 1.04 (0.82-1.09) 04/08/18 15:40 Assessment/Plan - Problems (1) Rapid atrial fibrillation Assessment/Plan: -On Metoprolol -No AC due to history of GI bleed Code(s): I48.91 - UNSPECIFIED ATRIAL FIBRILLATION (2) CHF exacerbation Assessment/Plan: -Increase IV Lasix 80 mg Tid -Strict I&O's -daily weight -low sodium diet -Seen by cardiology -Echo -Pulmonary on board Code(s): I50.9 - HEART FAILURE, UNSPECIFIED Qualifiers: Heart failure type: unspecified Qualified Code(s): I50.9 - Heart failure, unspecified (3) CKD (chronic kidney disease) Assessment/Plan: -Nephrology consult -Monitor trend -Has suspicious left renal mass from imaging done at [facility] -repeat Renal/bladder U/S Code(s): N18.9 - CHRONIC KIDNEY DISEASE, UNSPECIFIED Qualifiers: Chronic kidney disease stage: unspecified stage Qualified Code(s): N18.9 - Chronic kidney disease, unspecified (4) Respiratory distress--copd Assessment/Plan: -On continous BIPAP -bronchodilators - solumedrol bid Code(s): R06.03 - ACUTE RESPIRATORY DISTRESS (5) HTN Assessment/Plan: -increase hydralazine 50 bid
[2018-04-13] MEDS ORDERED: methylPREDNISolone NA SUCC 40 MG/1 ML VIAL IVPUSH SCH (10:00)
[2018-04-13] MEDS ORDERED: SPIRONOLACTONE 25 MG TABLET (FP) PO ONE (10:29)
[2018-04-13] MEDS ORDERED: METOPROLOL TARTRATE 25 MG TABLET (FP) PO ONE (10:30)
--- NOTE | 2018-04-13 10:51 | PN ---
Physical Exam: SUBJECTIVE: Patient seen and examined. Offers no complaints. Says her breathing is the same as yesterday. BiPap overnight. Now back on HFNC, saturation in the 90's. Increased urine output, responded well to spironolactone. OBJECTIVE: Vital Signs Period Temp Pulse Resp BP Sys/Stratton Pulse Ox Last 24 Hr 97.6 F-98.6 F 82-116 14-24 132-169/90-120 89-92 GENERAL: On bipap, in no acute distress. EYES: extraocular movements intact, sclera anicteric, conjunctiva clear. ENT: oropharynx clear without exudates, moist mucous membranes. LUNGS: scattered rhonchi, decreased BS HEART: RRR ABDOMEN: Soft, nontender, nondistended, normoactive bowel sounds EXTREMITIES: 2+ pulses, warm, pedal edema L>R NEUROLOGICAL: Cranial nerves II through XII grossly intact. Laboratory Results - last 24 hr 04/11/18 04/11/18 04/11/18 11:51 16:42 22:14 WBC RBC Hgb Hct MCV MCH MCHC RDW Plt Count MPV Sodium Potassium Chloride Carbon Dioxide Anion Gap BUN Creatinine Creat Clearance w eGFR POC Glucometer [phone] [phone] Random Glucose Calcium Phosphorus Magnesium Total Bilirubin AST ALT Alkaline Phosphatase Total Protein Albumin 04/12/18 04/12/18 04/12/18 05:22 11:45 16:11 WBC RBC Hgb Hct MCV MCH MCHC RDW Plt Count MPV Sodium Potassium Chloride Carbon Dioxide Anion Gap BUN Creatinine Creat Clearance w eGFR POC Glucometer [phone] [phone] Random Glucose Calcium Phosphorus Magnesium Total Bilirubin AST ALT Alkaline Phosphatase Total Protein Albumin 04/13/18 04/13/18 05:55 06:00 WBC 10.3 H RBC 3.67 Hgb 11.1 Hct 34.7 MCV 94.5 MCH 30.3 MCHC 32.0 RDW 17.1 H Plt Count 232 MPV 11.0 Sodium 138 Potassium 4.4 Chloride 95 L Carbon Dioxide 32 Anion Gap 11 BUN 75 H Creatinine 2.1 H Creat Clearance w eGFR 23.09 POC Glucometer Random Glucose 180 H Calcium 7.8 L Phosphorus 4.5 Magnesium 2.3 Total Bilirubin 0.4 AST 25 ALT 28 Alkaline Phosphatase 71 Total Protein 6.8 Albumin 2.8 L Active Medications Generic Name Dose Route Start Last Admin Trade Name Rosalba PRN Reason Stop Dose Admin Albuterol/Ipratropium 1 amp 04/11/18 12:00 04/12/18 21:00 Duoneb - NEB 1 amp RQID [facility] Administration Chlorhexidine Gluconate 1 applic 04/08/18 22:00 04/12/18 22:02 Hibiclens For Decolonization - TP 1 applic HS [facility] Administration Docusate Sodium 300 mg 04/11/18 22:00 04/12/18 22:01 Colace - PO 300 mg HS [facility] Administration Furosemide 80 mg 04/12/18 18:00 04/13/18 09:12 Lasix Injection - IVPUSH 80 mg TID@0600,1200,1800 [facility] Administration Heparin Sodium (Porcine) 5,000 unit 04/08/18 20:16 04/13/18 09:12 Heparin - SQ 5,000 unit TID [facility] Administration Hydralazine HCl 50 mg 04/12/18 10:15 04/13/18 09:08 Apresoline - PO 50 mg BID [facility] Administration Azithromycin 250 mg/ Dextrose 250 mls @ 250 mls/hr 04/09/18 10:00 04/13/18 09 :27 IVPB 250 mls/hr DAILY [facility] Administration Ceftriaxone Sodium 1 gm/ 50 mls @ 100 mls/hr 04/09/18 10:00 04/13/18 09:11 Dextrose IVPB 100 mls/hr DAILY [facility] Administration Protocol Insulin Aspart 1 vial 04/08/18 22:00 04/13/18 09:13 Novolog Vial Sliding Scale - SQ 2 units ACHS [facility] Administration Protocol Isosorbide Dinitrate 20 mg 04/12/18 11:00 04/13/18 09:26 Isordil - PO 20 mg BIDISORDIL [facility] Administration Metoprolol Tartrate 75 mg 04/13/18 22:00 Lopressor - PO BID [facility] Mupirocin 1 applic 04/08/18 22:00 04/13/18 09:12 Bactroban Ointment (For Decolonization) - NS 04/13/18 21:59 1 applic BID [facility] Administration Nystatin 1 applic 04/11/18 19:15 04/13/18 09:11 Nystop Powder - TP 1 applic DAILY [facility] Administration Senna 1 tab 04/11/18 22:00 04/12/18 22:01 Senna - PO 1 tab HS [facility] Administration Spironolactone 25 mg 04/13/18 10:29 Aldactone - PO 04/13/18 10:30 ONCE ONE ASSESSMENT/PLAN: PULMONARY #Acute hypoxic respiratory failure -due to volume overload -Bipap held -HFNC, 60 Flow rate, 70% Fio2 -Cont. IV Lasix 80mg IV BID -1x Spironloactone 25mg yesterday. Responded appropriately. -1x dose today. -Strict I/o's -Daily weight -on home O2 -Stopped Steroids today. -Spiriva -IV abx: Ceftriaxone, Azithromycin. CV #Rapid A-fib -Off cardizem - Cont. Metoprolol 50 mg BID, titrate as needed -Not on AG due to recent GI bleed -ECHO 04/10: Severe LV, RV dysfunction. EF 44%. -FU cardio reccs -Hold ASHLEIGH/ARB secondary to elevated creatinine -CKD -cr improved today to 2.1 -kidneys are echogenic on ultrasound -fu nephro reccs #FEN No Iv fluids due to volume overload monitor lytes Full liquid diet #DVT hep sq Visit type - Emergency Visit Emergency Visit: Yes ED Registration Date: 04/08/18 Care time: The patient presented to the Emergency Department on the above date and was hospitalized for further evaluation of their emergent condition. - New Patient This patient is new to me today: No - Critical Care Critical Care patient: Yes Total Critical Care Time (in minutes): 40 Critical Care Statement: The care of this patient involved high complexity decision making to prevent further life threatening deterioration of the patient 's condition and/or to evaluate & treat vital organ system(s) failure or risk of failure.
--- NOTE | 2018-04-13 11:19 | PN ---
Teaching Attending Note Name of Resident: Lily Del Rio ATTENDING PHYSICIAN STATEMENT I saw and evaluated the patient. I reviewed the resident's note and discussed the case with the resident. I agree with the resident's findings and plan as documented. SUBJECTIVE: Pt seen and examined in the ICU. Diuresed well with addition of aldactone. Tolerating HFOT, used BiPAP for sleep overnight. OBJECTIVE: Vital Signs Period Temp Pulse Resp BP Sys/Stratton Pulse Ox Last 24 Hr 97.6 F-98.6 F 82-116 14-24 132-169/90-120 89-92 Intake & Output 04/10/18 04/11/18 04/12/18 04/13/18 23:59 23:59 23:59 23:59 Intake Total 1315 1040 850 250 Output Total 0411 354 6362 1350 Balance 165 190 -1250 -1100 Weight 131.995 kg 133.158 kg 133.441 kg 133.356 kg Gen: less tachypneic on HFOT Heart: irregular, tachycardic Lung: scattered rhonchi Abd: soft, nontender Ext: + edema CBC, BMP 04/13/18 05:55 04/13/18 06:00 Active Medications Albuterol/Ipratropium (Duoneb -) 1 amp NEB RQID [facility] Last Admin: 04/12/18 21:00 Dose: 1 amp Chlorhexidine Gluconate (Hibiclens For Decolonization -) 1 applic TP HS [facility] Last Admin: 04/12/18 22:02 Dose: 1 applic Docusate Sodium (Colace -) 300 mg PO [facility] Last Admin: 04/12/18 22:01 Dose: 300 mg Furosemide (Lasix Injection -) 80 mg IVPUSH TID@0600,1200,1800 [facility] Last Admin: 04/13/18 09:12 Dose: 80 mg Heparin Sodium (Porcine) (Heparin -) 5,000 unit SQ TID [facility] Last Admin: 04/13/18 09:12 Dose: 5,000 unit Hydralazine HCl (Apresoline -) 50 mg PO BID [facility] Last Admin: 04/13/18 09:08 Dose: 50 mg Azithromycin 250 mg/ Dextrose 250 mls @ 250 mls/hr IVPB DAILY [facility] Last Admin: 04/13/18 09:27 Dose: 250 mls/hr Ceftriaxone Sodium 1 gm/ (Dextrose) 50 mls @ 100 mls/hr IVPB DAILY [facility]; Protocol Last Admin: 04/13/18 09:11 Dose: 100 mls/hr Insulin Aspart (Novolog Vial Sliding Scale -) 1 vial SQ ACHS [facility]; Protocol Last Admin: 04/13/18 09:13 Dose: 2 units Isosorbide Dinitrate (Isordil -) 20 mg PO BIDISORDIL [facility] Last Admin: 04/13/18 09:26 Dose: 20 mg Metoprolol Tartrate (Lopressor -) 75 mg PO BID [facility] Mupirocin (Bactroban Ointment (For Decolonization) -) 1 applic NS BID [facility] Stop: 04/13/18 21:59 Last Admin: 04/13/18 09:12 Dose: 1 applic Nystatin (Nystop Powder -) 1 applic TP DAILY [facility] Last Admin: 04/13/18 09:11 Dose: 1 applic Senna (Senna -) 1 tab PO HS [facility] Last Admin: 04/12/18 22:01 Dose: 1 tab ASSESSMENT AND PLAN: Acute Hypoxic Respiratory Failure Volume Overload Acute on Chronic Systolic Heart Failure CKD COPD Atrial Fibrillation h/o GI Bleed - continue lasix, aldactone - monitor urine output, creatinine - keep net negative - monitor lytes - taper off medrol, less likely COPD - inhaled bronchodilators - O2 to keep SpO2 >90% - continue HFOT - BiPAP at night - on empiric antibiotics, can d/c - increase rate control with metoprolol - DVT prophylaxis - continue ICU monitoring critical care time spent in reviewing chart, evaluating patient and formulating plan 35 min
[2018-04-13 13:13] LABS: CHOLESTEROL 265 mg/dL (50-200); HDL CHOLESTEROL 63 mg/dL (40-60); TRIGLYCERIDES 121 mg/dL (35-160)
--- NOTE | 2018-04-13 13:36 | PN ---
Progress Note, Physician History of Present Illness: Pt seen and examined at bedside. She is awake and alert. She feels that her breathing is a little better today but not that great of a change. - Current Medication List Current Medications: Active Medications Albuterol/Ipratropium (Duoneb -) 1 amp NEB RQID [facility] Last Admin: 04/13/18 11:30 Dose: 1 amp Chlorhexidine Gluconate (Hibiclens For Decolonization -) 1 applic TP HS [facility] Last Admin: 04/12/18 22:02 Dose: 1 applic Docusate Sodium (Colace -) 300 mg PO HS [facility] Last Admin: 04/12/18 22:01 Dose: 300 mg Furosemide (Lasix Injection -) 80 mg IVPUSH TID@0600,1200,1800 [facility] Last Admin: 04/13/18 12:18 Dose: 80 mg Heparin Sodium (Porcine) (Heparin -) 5,000 unit SQ TID [facility] Last Admin: 04/13/18 09:12 Dose: 5,000 unit Hydralazine HCl (Apresoline -) 50 mg PO BID [facility] Last Admin: 04/13/18 09:08 Dose: 50 mg Insulin Aspart (Novolog Vial Sliding Scale -) 1 vial SQ ACHS [facility]; Protocol Last Admin: 04/13/18 12:17 Dose: 4 units Isosorbide Dinitrate (Isordil -) 20 mg PO BIDISORDIL [facility] Last Admin: 04/13/18 09:26 Dose: 20 mg Metoprolol Tartrate (Lopressor -) 75 mg PO BID [facility] Mupirocin (Bactroban Ointment (For Decolonization) -) 1 applic NS BID [facility] Stop: 04/13/18 21:59 Last Admin: 04/13/18 09:12 Dose: 1 applic Nystatin (Nystop Powder -) 1 applic TP DAILY [facility] Last Admin: 04/13/18 09:11 Dose: 1 applic Senna (Senna -) 1 tab PO HS [facility] Last Admin: 04/12/18 22:01 Dose: 1 tab - Objective Vital Signs: Vital Signs Temperature 98.6 F 04/13/18 00:00 Pulse Rate 0 L 04/13/18 10:00 Respiratory Rate 18 04/13/18 10:00 Blood Pressure 147/93 04/13/18 10:00 O2 Sat by Pulse Oximetry (%) 92 L 04/13/18 10:00 Constitutional: Yes: Calm Eyes: Yes: Conjunctiva Clear HENT: Yes: Atraumatic Neck: Yes: Supple Cardiovascular: Yes: S1, S2 Respiratory: Yes: On Nasal O2 Gastrointestinal: Yes: Soft, Abdomen, Obese Genitourinary: Yes: [place] Present Musculoskeletal: Yes: WNL Edema: Yes Edema: LLE: 2+, RLE: 2+ Neurological: Yes: Oriented Psychiatric: Yes: Oriented Labs: CBC, BMP 04/13/18 05:55 04/13/18 06:00 INR, PTT INR 1.04 (0.82-1.09) 04/08/18 15:40 Problem List - Problems (1) Acute respiratory failure with hypoxia Code(s): J96.01 - ACUTE RESPIRATORY FAILURE WITH HYPOXIA (2) CHF (congestive heart failure) Code(s): I50.9 - HEART FAILURE, UNSPECIFIED (3) CKD (chronic kidney disease) Code(s): N18.9 - CHRONIC KIDNEY DISEASE, UNSPECIFIED Qualifiers: Chronic kidney disease stage: unspecified stage Qualified Code(s): N18.9 - Chronic kidney disease, unspecified (4) Renal insufficiency Code(s): N28.9 - DISORDER OF KIDNEY AND URETER, UNSPECIFIED Assessment/Plan Current Medications Generic Name Dose Route Start Last Admin Trade Name Freq PRN Reason Stop Dose Admin Albuterol/Ipratropium 1 amp 04/11/18 12:00 04/13/18 11:30 Duoneb - NEB 1 amp RQID [facility] Administration Chlorhexidine Gluconate 1 applic 04/08/18 22:00 04/12/18 22:02 Hibiclens For Decolonization - TP 1 applic HS JIGNESH Administration Docusate Sodium 300 mg 04/11/18 22:00 04/12/18 22:01 Colace - PO 300 mg HS J[facility] Administration Furosemide 80 mg 04/12/18 18:00 04/13/18 12:18 Lasix Injection - IVPUSH 80 mg TID@0600,1200,1800 [facility] Administration Heparin Sodium (Porcine) 5,000 unit 04/08/18 20:16 04/13/18 09:12 Heparin - SQ 5,000 unit TID [facility] Administration Hydralazine HCl 50 mg 04/12/18 10:15 04/13/18 09:08 Apresoline - PO 50 mg BID J[facility] Administration Insulin Aspart 1 vial 04/08/18 22:00 04/13/18 12:17 Novolog Vial Sliding Scale - SQ 4 units ACHS [facility] Administration Protocol Isosorbide Dinitrate 20 mg 04/12/18 11:00 04/13/18 09:26 Isordil - PO 20 mg BIDISORDIL [facility] Administration Metoprolol Tartrate 75 mg 04/13/18 22:00 Lopressor - PO BID [facility] Mupirocin 1 applic 04/08/18 22:00 04/13/18 09:12 Bactroban Ointment (For Decolonization) - NS 04/13/18 21:59 1 applic BID [facility] Administration Nystatin 1 applic 04/11/18 19:15 04/13/18 09:11 Nystop Powder - TP 1 applic DAILY [facility] Administration Senna 1 tab 04/11/18 22:00 04/12/18 22:01 Senna - PO 1 tab HS [facility] Administration Impression 1. CKD 2. CHF 3. resp failure requiring bipap 4. obesity 5. fluid overload 6. COPD 7. rapid a-fib Plan - pt has been net negative the last two days - cont with lasix - will give another dose of spironolactone (if potassium becomes an issue switch to metolazone) - monitor renal function - monitor urine output - weight may not be as reliable (bed scale used) - bipap as needed - monitor pulse ox - may need HD for UF if diuretics fail - cardiology follow up Dr Bach
[2018-04-13] MEDS: CHLORHEXIDINE GLUCONATE 4% CLEANSER FOR DECOLONIZATION TP SCH (21:24)
[2018-04-13] MEDS: DOCUSATE SODIUM 100 MG CAPSULE (FP) PO SCH (21:24)
[2018-04-13] MEDS: SENNOSIDES 8.6MG TABLET (FP) PO SCH (21:25)
[2018-04-13] MEDS: TIMOLOL 0.5% OPHTHALMIC SOL 5 ML BOTTLE OU SCH (21:26)
[2018-04-13] MEDS ORDERED: METOPROLOL TARTRATE 50 MG TABLET (FP) PO SCH (22:00)
[2018-04-14 06:11] LABS: BASO % 0.2 % (0-2.0); EOS % 0.1 % (0-4.5); HEMATOCRIT 37.1 % (32.4-45.2); LYMPH % 8.5 % (8-40); MCH 30.5 pg (25.7-33.7); MCHC 32.5 g/dl (32.0-36.0); MEAN PLT VOLUME 10.8 fl (7.5-11.1); MONO % 7.6 % (3.8-10.2); NEUT % 83.6 % (42.8-82.8); PLATELET COUNT 230 K/MM3 (134-434); RBC 3.94 M/mm3 (3.60-5.2); RDW 16.8 % (11.6-15.6); WHITE BLOOD COUNT 10.7 K/mm3 (4.0-10.0)
[2018-04-14] MEDS: FUROSEMIDE 40 MG/4 ML INJECTABLE VIAL IVPUSH SCH ×3 (06:11→17:10)
[2018-04-14] MEDS: HEPARIN NA (PORCINE) 5,000 UNITS/ML 1ML VIAL SQ SCH ×3 (06:11→22:44)
[2018-04-14] MEDS: INSULIN SLIDING SCALE (NOVOLOG) 1 VIAL SQ SCH ×3 (06:11→17:00)
[2018-04-14 06:30] LABS: ANION GAP 11 (8-16); BLOOD UREA NITROGEN 86 mg/dL (7-18); CHLORIDE 96 mmol/L (98-107); CO2 33 mmol/L (21-32); GLUCOSE,RANDOM 68 mg/dL (74-106); SGOT/AST 15 U/L (15-37); SGPT/ALT 26 U/L (12-78); SODIUM 140 mmol/L (136-145)
[2018-04-14 06:34] LABS: ALK PHOS 72 U/L (45-117); BILIRUBIN,TOTAL 0.4 mg/dL (0.2-1.0); CREATININE 2.2 mg/dL (0.55-1.02); TOT PROT 6.8 g/dl (6.4-8.2)
--- NOTE | 2018-04-14 07:37 | PN ---
Progress Note (short form) - Note Progress Note: S: No complaints. BiPAP overnight. Breathing improved O: Vital Signs Period Temp Pulse Resp BP Sys/Stratton Pulse Ox Last 24 Hr 97.4 F-98.8 F 88-117 11-22 125-159/82-113 90-98 Tele - at times Tachy to 130s/140s GEN: AAOx3, on BiPAP, breathing comfortably HEENT: PERRL, EOMi CV: S1, S2, RRR LUNG: Anterior lungs are clear ABD: Soft, NT, ND MSK: No edema, no erythema A/P: 72yo F with PMHx of HTN, Afib, COPD who presented w/ SOB admitted for CHF exac # Acute Hypoxic RF from CHF exac -- Improving, now on high flow during day. Bipap prn. Responded well to Spironolactone. Will give another dose today. Neg balance -2500. IV Lasix 80 BID. EF 44% on echo. # Afib -- Initially in RVR, now rate controlled on Toprol 25 bid. Hold AC in light of recent GI bleed # MARIUM on CKD -- Likely from CHF prerenal, hold acei/arb # HTN -- Hydralazine, Isosorbide, Toprol 75 bid # FEN/PPx -- No IVF, full liquid diet, HSq # Dispo -- Keep in ICU while on high flow. Yasmin Melendez MD [id number] ICU Resident
[2018-04-14] MEDS: ALBUTEROL SO4 2.5/IPRATROPIUM 0.5 INH SOL 3 ML VIAL.NEB. NEB SCH ×4 (08:12→20:08)
--- NOTE | 2018-04-14 09:36 | PN ---
Progress Note, Physician - Current Medication List Current Medications: Active Medications Albuterol/Ipratropium (Duoneb -) 1 amp NEB RQID [facility] Last Admin: 04/14/18 08:12 Dose: 1 amp Atorvastatin Calcium (Lipitor -) 40 mg PO DAILY [facility] Chlorhexidine Gluconate (Hibiclens For Decolonization -) 1 applic TP HS [facility] Last Admin: 04/13/18 21:24 Dose: 1 applic Docusate Sodium (Colace -) 300 mg PO HS [facility] Last Admin: 04/13/18 21:24 Dose: 300 mg Furosemide (Lasix Injection -) 80 mg IVPUSH TID@0600,1200,1800 [facility] Last Admin: 04/14/18 06:11 Dose: 80 mg Heparin Sodium (Porcine) (Heparin -) 5,000 unit SQ TID [facility] Last Admin: 04/14/18 06:11 Dose: 5,000 unit Hydralazine HCl (Apresoline -) 50 mg PO BID [facility] Last Admin: 04/13/18 21:24 Dose: 50 mg Insulin Aspart (Novolog Vial Sliding Scale -) 1 vial SQ [facility]; Protocol Last Admin: 04/14/18 06:11 Dose: Not Given Isosorbide Dinitrate (Isordil -) 20 mg PO BIDISORDIL [facility] Last Admin: 04/13/18 18:08 Dose: 20 mg Metoprolol Tartrate (Lopressor -) 75 mg PO BID [facility] Last Admin: 04/13/18 21:25 Dose: 75 mg Nystatin (Nystop Powder -) 1 applic TP DAILY [facility] Last Admin: 04/13/18 09:11 Dose: 1 applic Senna (Senna -) 1 tab PO HS [facility] Last Admin: 04/13/18 21:25 Dose: 1 tab Timolol Maleate (Timoptic 0.5%) 1 drop OU BID [facility] Last Admin: 04/13/18 21:26 Dose: Not Given - Objective Vital Signs: Vital Signs Temperature 97.5 F L 04/14/18 06:55 Pulse Rate 101 H 04/14/18 08:36 Respiratory Rate 23 04/14/18 08:36 Blood Pressure 143/102 04/14/18 08:36 O2 Sat by Pulse Oximetry (%) 98 04/14/18 06:46 Cardiovascular: Yes: S1, S2 Respiratory: Yes: On BiPap, Rales Gastrointestinal: Yes: Normal Bowel Sounds, Soft Labs: CBC, BMP 04/14/18 05:50 04/14/18 05:50 INR, PTT INR 1.04 (0.82-1.09) 04/08/18 15:40 Assessment/Plan - Problems (1) Rapid atrial fibrillation Assessment/Plan: -On Metoprolol -No AC due to history of GI bleed Code(s): I48.91 - UNSPECIFIED ATRIAL FIBRILLATION (2) CHF exacerbation Assessment/Plan: -Increase IV Lasix 80 mg Tid -Strict I&O's -daily weight -low sodium diet -Seen by cardiology -Echo -Pulmonary on board Code(s): I50.9 - HEART FAILURE, UNSPECIFIED Qualifiers: Heart failure type: unspecified Qualified Code(s): I50.9 - Heart failure, unspecified (3) CKD (chronic kidney disease) Assessment/Plan: -Nephrology consult -Monitor trend -Has suspicious left renal mass from imaging done at [facility] -repeat Renal/bladder U/S Code(s): N18.9 - CHRONIC KIDNEY DISEASE, UNSPECIFIED Qualifiers: Chronic kidney disease stage: unspecified stage Qualified Code(s): N18.9 - Chronic kidney disease, unspecified (4) Respiratory distress--copd Assessment/Plan: -On continous BIPAP -bronchodilators - solumedrol bid Code(s): R06.03 - ACUTE RESPIRATORY DISTRESS (5) HTN Assessment/Plan: -increase hydralazine 50 bid
--- NOTE | 2018-04-14 10:50 | PN ---
Teaching Attending Note Name of Resident: Yasmin Melendez ATTENDING PHYSICIAN STATEMENT I saw and evaluated the patient. I reviewed the resident's note and discussed the case with the resident. I agree with the resident's findings and plan as documented. SUBJECTIVE: Patient seen and examined in the ICU. Awake and alert. Remains on significant HOF support. OBJECTIVE: Intake & Output 04/11/18 04/12/18 04/13/18 04/14/18 23:59 23:59 23:59 23:59 Intake Total 1040 850 830 250 Output Total 850 2100 3050 300 Balance 190 -1250 -2220 -50 Weight 293 lb 9 oz 294 lb 3 oz 294 lb 294 lb 9 oz Last Vital Signs Temp Pulse Resp BP Pulse Ox 98.2 F 101 H 23 143/102 98 04/14/18 09:37 04/14/18 08:36 04/14/18 08:36 04/14/18 08:36 04/14/18 06:46 Active Medications Albuterol/Ipratropium (Duoneb -) 1 amp NEB RQID [facility] Last Admin: 04/14/18 08:12 Dose: 1 amp Atorvastatin Calcium (Lipitor -) 40 mg PO HS [facility] Chlorhexidine Gluconate (Hibiclens For Decolonization -) 1 applic TP HS [facility] Last Admin: 04/13/18 21:24 Dose: 1 applic Docusate Sodium (Colace -) 300 mg PO HS [facility] Last Admin: 04/13/18 21:24 Dose: 300 mg Furosemide (Lasix Injection -) 80 mg IVPUSH TID@0600,1200,1800 [facility] Last Admin: 04/14/18 06:11 Dose: 80 mg Heparin Sodium (Porcine) (Heparin -) 5,000 unit SQ TID [facility] Last Admin: 04/14/18 06:11 Dose: 5,000 unit Hydralazine HCl (Apresoline -) 100 mg PO BID [facility] Insulin Aspart (Novolog Vial Sliding Scale -) 1 vial SQ ACHS [facility]; Protocol Last Admin: 04/14/18 06:11 Dose: Not Given Isosorbide Dinitrate (Isordil -) 20 mg PO BIDISORDIL [facility] Last Admin: 04/13/18 18:08 Dose: 20 mg Metoprolol Tartrate (Lopressor -) 100 mg PO BID [facility] Nystatin (Nystop Powder -) 1 applic TP DAILY [facility] Last Admin: 04/13/18 09:11 Dose: 1 applic Senna (Senna -) 1 tab PO HS [facility] Last Admin: 04/13/18 21:25 Dose: 1 tab Timolol Maleate (Timoptic 0.5%) 1 drop OU BID [facility] Last Admin: 04/13/18 21:26 Dose: Not Given Gen: less tachypneic on HFOT Heart: irregular, tachycardic Lung: scattered rhonchi Abd: soft, nontender Ext: + edema Laboratory Results - last 24 hr 04/13/18 04/13/18 04/14/18 06:00 06:00 05:50 WBC 10.7 H RBC 3.94 Hgb 12.0 Hct 37.1 MCV 94.0 MCH 30.5 MCHC 32.5 RDW 16.8 H Plt Count 230 MPV 10.8 Absolute Neuts (auto) 8.9 Neutrophils % 83.6 H Lymphocytes % 8.5 D Monocytes % 7.6 D Eosinophils % 0.1 D Basophils % 0.2 Nucleated RBC % 1 H Sodium Potassium Chloride Carbon Dioxide Anion Gap BUN Creatinine Creat Clearance w eGFR Random Glucose Calcium Total Bilirubin AST ALT Alkaline Phosphatase Total Protein Albumin Triglycerides 121 Cholesterol 265 H Total LDL Cholesterol 171 H HDL Cholesterol 63 H TSH 0.91 04/14/18 05:50 WBC RBC Hgb Hct MCV MCH MCHC RDW Plt Count MPV Absolute Neuts (auto) Neutrophils % Lymphocytes % Monocytes % Eosinophils % Basophils % Nucleated RBC % Sodium 140 Potassium 4.0 Chloride 96 L Carbon Dioxide 33 H Anion Gap 11 BUN 86 H Creatinine 2.2 H Creat Clearance w eGFR 21.88 Random Glucose 68 L Calcium 8.0 L Total Bilirubin 0.4 AST 15 ALT 26 Alkaline Phosphatase 72 Total Protein 6.8 Albumin 3.0 L Triglycerides Cholesterol Total LDL Cholesterol HDL Cholesterol TSH ASSESSMENT AND PLAN: Acute Hypoxic Respiratory Failure Volume Overload Acute on Chronic Systolic Heart Failure CKD COPD Atrial Fibrillation h/o GI Bleed - Wean HF NC O2 as tolerated - continue lasix, aldactone - monitor urine output, creatinine - keep net negative - monitor lytes - taper off medrol - inhaled bronchodilators - O2 to keep SpO2 >90% - NIPPV at night - Rate control with metoprolol - DVT prophylaxis - continue ICU monitoring Dr Fitzgerald Critical care time spent in reviewing chart, evaluating patient and formulating plan 35 min Problem List - Problems (1) Sleep apnea Code(s): G47.30 - SLEEP APNEA, UNSPECIFIED (2) Acute respiratory failure with hypoxia Code(s): J96.01 - ACUTE RESPIRATORY FAILURE WITH HYPOXIA (3) CHF (congestive heart failure) Code(s): I50.9 - HEART FAILURE, UNSPECIFIED (4) CHF exacerbation Code(s): I50.9 - HEART FAILURE, UNSPECIFIED Qualifiers: Heart failure type: unspecified Qualified Code(s): I50.9 - Heart failure, unspecified (5) CKD (chronic kidney disease) Code(s): N18.9 - CHRONIC KIDNEY DISEASE, UNSPECIFIED Qualifiers: Chronic kidney disease stage: unspecified stage Qualified Code(s): N18.9 - Chronic kidney disease, unspecified (6) Rapid atrial fibrillation Code(s): I48.91 - UNSPECIFIED ATRIAL FIBRILLATION (7) Respiratory distress Code(s): R06.03 - ACUTE RESPIRATORY DISTRESS
[2018-04-14] MEDS: hydrALAZINE HCL 50 MG TABLET (FP) PO SCH ×2 (10:56→22:43)
[2018-04-14] MEDS: ISOSORBIDE DINITRATE 20 MG TABLET (FP) PO SCH ×2 (10:57→17:01)
[2018-04-14] MEDS: METOPROLOL TARTRATE 50 MG TABLET (FP) PO SCH ×2 (10:58→22:46)
[2018-04-14] MEDS ORDERED: SPIRONOLACTONE 25 MG TABLET (FP) PO ONE (11:30)
--- NOTE | 2018-04-14 12:02 | PN ---
Progress Note, Physician History of Present Illness: In summary, 72F PMH COPD, HTN, AF [facility] a recent lengthy stay at [facility]. She is currently admitted to our ICU with acute on chronic presumed diastolic CHF, uncontrolled HTN and rapid AF. As per patient and daughter Karlene, she was admitted to [facility] about 6 weeks ago with hematemesis, BRBPR requiring transfusions (taken off Plavix), ARF requiring temporary HD and CHF. As per daughter, no source of bleeding was found. - Current Medication List Current Medications: Active Medications Albuterol/Ipratropium (Duoneb -) 1 amp NEB RQID [facility] Last Admin: 04/14/18 08:12 Dose: 1 amp Atorvastatin Calcium (Lipitor -) 40 mg PO [facility] Chlorhexidine Gluconate (Hibiclens For Decolonization -) 1 applic TP HS [facility] Last Admin: 04/13/18 21:24 Dose: 1 applic Docusate Sodium (Colace -) 300 mg PO HS [facility] Last Admin: 04/13/18 21:24 Dose: 300 mg Furosemide (Lasix Injection -) 80 mg IVPUSH TID@0600,1200,1800 [facility] Last Admin: 04/14/18 06:11 Dose: 80 mg Heparin Sodium (Porcine) (Heparin -) 5,000 unit SQ TID [facility] Last Admin: 04/14/18 06:11 Dose: 5,000 unit Hydralazine HCl (Apresoline -) 100 mg PO BID [facility] Last Admin: 04/14/18 10:56 Dose: 100 mg Insulin Aspart (Novolog Vial Sliding Scale -) 1 vial SQ ACHS [facility]; Protocol Last Admin: 04/14/18 11:37 Dose: Not Given Isosorbide Dinitrate (Isordil -) 20 mg PO BIDISORDIL [facility] Last Admin: 04/14/18 10:57 Dose: 20 mg Metoprolol Tartrate (Lopressor -) 100 mg PO BID [facility] Last Admin: 04/14/18 10:58 Dose: 100 mg Nystatin (Nystop Powder -) 1 applic TP DAILY [facility] Last Admin: 04/13/18 09:11 Dose: 1 applic Senna (Senna -) 1 tab PO HS [facility] Last Admin: 04/13/18 21:25 Dose: 1 tab Timolol Maleate (Timoptic 0.5%) 1 drop OU BID [facility] Last Admin: 04/13/18 21:26 Dose: Not Given - Objective Vital Signs: Vital Signs Temperature 98.3 F 04/14/18 11:21 Pulse Rate 101 H 04/14/18 08:36 Respiratory Rate 21 04/14/18 10:51 Blood Pressure 131/108 04/14/18 10:51 O2 Sat by Pulse Oximetry (%) 98 04/14/18 09:00 Eyes: Yes: WNL, Conjunctiva Clear, EOM Intact HENT: Yes: WNL, Atraumatic, Normocephalic Neck: Yes: WNL, Supple, Trachea Midline Cardiovascular: Yes: Pulse Irregular, S1, S2 Respiratory: Yes: WNL, Regular, CTA Bilaterally Gastrointestinal: Yes: WNL, Normal Bowel Sounds Genitourinary: Yes: WNL Musculoskeletal: Yes: WNL Extremities: Yes: WNL Edema: Yes Integumentary: Yes: WNL Neurological: Yes: WNL, Alert, Oriented ...Motor Strength: WNL Psychiatric: Yes: WNL Labs: CBC, BMP 04/14/18 05:50 04/14/18 05:50 INR, PTT INR 1.04 (0.82-1.09) 04/08/18 15:40 Assessment/Plan - Problems (1) Acute on chronic systolic and diastolic heart failure, NYHA class 4 Assessment/Plan: Severely reduced LVEF on ECHO. Stopped diltiazem. Continue metoprolol, and increased dose to 75 mg bid due to periods of AF with RVR and elevated BP. Unable to start ACEI, ARB, or RAAS due to renal dysfunctio (though pt responded well to one alexis of aldactone for diuresis). Continue hydralazine + isordil. F/u BUN/Cr, electrolytes, daily wt, Is and Os. Code(s): I50.43 - ACUTE ON CHRONIC COMBINED SYSTOLIC AND DIASTOLIC HRT FAIL (2) Acute exacerbation of COPD with asthma Code(s): J44.1 - CHRONIC OBSTRUCTIVE PULMONARY DISEASE W (ACUTE) EXACERBATION; J45.901 - UNSPECIFIED ASTHMA WITH (ACUTE) EXACERBATION (3) Acute respiratory failure with hypoxia Assessment/Plan: now off BiPap; on Rapid flow Code(s): J96.01 - ACUTE RESPIRATORY FAILURE WITH HYPOXIA (4) HTN (hypertension) Code(s): I10 - ESSENTIAL (PRIMARY) HYPERTENSION Qualifiers: Hypertension type: unspecified Qualified Code(s): I10 - Essential (primary ) hypertension (5) Diabetes Code(s): E11.9 - TYPE 2 DIABETES MELLITUS WITHOUT COMPLICATIONS (6) Morbid obesity Assessment/Plan: discussed need to change diet, lose weight. Nutirtional counseling would be of benefit. Code(s): E66.01 - MORBID (SEVERE) OBESITY DUE TO EXCESS CALORIES (7) Hyperlipidemia Assessment/Plan: f/u lipid panel; start statin (Multiple CAD risks; DM). Code(s): E78.5 - HYPERLIPIDEMIA, UNSPECIFIED (8) Glaucoma Assessment/Plan: on TImoptic Code(s): H40.9 - UNSPECIFIED GLAUCOMA Assessment/Plan ccu time spent examining pt, formulating plan: 40 minutes.
[2018-04-14] MEDS: TIMOLOL 0.5% OPHTHALMIC SOL 5 ML BOTTLE OU SCH ×2 (14:05→22:58)
[2018-04-14] MEDS: NYSTATIN POWDER 100,000 UNITS/GM - 15 GM TOPICAL POWDER TP SCH (14:05)
--- NOTE | 2018-04-14 22:34 | PN ---
Progress Note (short form) - Note Progress Note: nephrology coverage icu Problem 1. CKD 2. CHF 3. resp failure requiring bipap 4. obesity 5. fluid overload 6. COPD 7. rapid a-fib Current Medications Albuterol/Ipratropium (Duoneb -) 1 amp NEB RQID [facility] Last Admin: 04/14/18 20:08 Dose: 1 amp Atorvastatin Calcium (Lipitor -) 40 mg PO [facility] Chlorhexidine Gluconate (Hibiclens For Decolonization -) 1 applic TP HS [facility] Last Admin: 04/13/18 21:24 Dose: 1 applic Docusate Sodium (Colace -) 300 mg PO HS [facility] Last Admin: 04/13/18 21:24 Dose: 300 mg Furosemide (Lasix Injection -) 80 mg IVPUSH TID@0600,1200,1800 [facility] Last Admin: 04/14/18 17:10 Dose: 80 mg Heparin Sodium (Porcine) (Heparin -) 5,000 unit SQ TID [facility] Last Admin: 04/14/18 14:09 Dose: 5,000 unit Hydralazine HCl (Apresoline -) 100 mg PO BID [facility] Last Admin: 04/14/18 10:56 Dose: 100 mg Insulin Aspart (Novolog Vial Sliding Scale -) 1 vial SQ [facility]; Protocol Last Admin: 04/14/18 17:00 Dose: 2 units Isosorbide Dinitrate (Isordil -) 20 mg PO BIDISORDIL [facility] Last Admin: 04/14/18 17:01 Dose: 20 mg Metoprolol Tartrate (Lopressor -) 100 mg PO BID [facility] Last Admin: 04/14/18 10:58 Dose: 100 mg Nystatin (Nystop Powder -) 1 applic TP DAILY [facility] Last Admin: 04/14/18 14:05 Dose: 1 applic Senna (Senna -) 1 tab PO HS [facility] Last Admin: 04/13/18 21:25 Dose: 1 tab Timolol Maleate (Timoptic 0.5%) 1 drop OU BID [facility] Last Admin: 04/14/18 14:05 Dose: 1 drop Last Vital Signs Temp Pulse Resp BP Pulse Ox 98.0 F 108 H 20 134/109 94 L 04/14/18 18:00 04/14/18 18:00 04/14/18 19:41 04/14/18 18:00 04/14/18 20:35 lungs decr breath sounds heart reg abd soft ext mild edema CBC, BMP 04/14/18 05:50 04/14/18 05:50 IMP- ckd prerenal azotemia heart failure obesity Plan- monitor urine output
[2018-04-14] MEDS: DOCUSATE SODIUM 100 MG CAPSULE (FP) PO SCH (22:44)
[2018-04-14] MEDS: CHLORHEXIDINE GLUCONATE 4% CLEANSER FOR DECOLONIZATION TP SCH (22:45)
[2018-04-14] MEDS: ATORVASTATIN CA 40 MG TABLET (FP) PO SCH (22:45)
[2018-04-14] MEDS: SENNOSIDES 8.6MG TABLET (FP) PO SCH (22:46)
[2018-04-15] MEDS: INSULIN SLIDING SCALE (NOVOLOG) 1 VIAL SQ SCH ×5 (00:39→21:53)
[2018-04-15] MEDS: FUROSEMIDE 40 MG/4 ML INJECTABLE VIAL IVPUSH SCH ×3 (05:31→17:51)
[2018-04-15] MEDS: HEPARIN NA (PORCINE) 5,000 UNITS/ML 1ML VIAL SQ SCH ×2 (05:32→14:30)
[2018-04-15] MEDS ORDERED: HEMOQUE TEST 1 EACH EACH ONE (05:46)
[2018-04-15 06:13] LABS: ALBUMIN 2.7 g/dl (3.4-5.0); ANION GAP 10 (8-16); BLOOD UREA NITROGEN 89 mg/dL (7-18); CALCIUM 7.8 mg/dL (8.5-10.1); CHLORIDE 98 mmol/L (98-107); CO2 32 mmol/L (21-32); GLUCOSE,RANDOM 121 mg/dL (74-106); POTASSIUM 4.1 mmol/L (3.5-5.1); SGOT/AST 14 U/L (15-37); SGPT/ALT 21 U/L (12-78); SODIUM 140 mmol/L (136-145)
[2018-04-15 06:16] LABS: ALK PHOS 67 U/L (45-117); BILIRUBIN,TOTAL 0.5 mg/dL (0.2-1.0); TOT PROT 6.1 g/dl (6.4-8.2)
[2018-04-15 06:22] LABS: HEMATOCRIT 38.1 % (32.4-45.2); HEMOGLOBIN 12.2 GM/dL (10.7-15.3); MCH 30.4 pg (25.7-33.7); MCHC 32.2 g/dl (32.0-36.0); MEAN CELL VOLUME 94.7 fl (80-96); MEAN PLT VOLUME 12.3 fl (7.5-11.1); PLATELET COUNT 191 K/MM3 (134-434); RBC 4.02 M/mm3 (3.60-5.2); RDW 16.9 % (11.6-15.6); WHITE BLOOD COUNT 11.4 K/mm3 (4.0-10.0)
[2018-04-15] MEDS: ALBUTEROL SO4 2.5/IPRATROPIUM 0.5 INH SOL 3 ML VIAL.NEB. NEB SCH ×4 (08:00→21:26)
--- NOTE | 2018-04-15 08:35 | EKG ---
Test Reason : Blood Pressure : / mmHG Vent. Rate : 103 BPM Atrial Rate : 138 BPM P-R Int : 000 ms QRS Dur : 106 ms QT Int : 352 ms P-R-T Axes : 000 014 218 degrees QTc Int : 461 ms ATRIAL FIBRILLATION WITH RAPID VENTRICULAR RESPONSE WITH PREMATURE VENTRICULAR OR ABERRANTLY CONDUCTED COMPLEXES ANTEROLATERAL INFARCT (CITED ON OR BEFORE 09-AUG-2006) T WAVE ABNORMALITY, CONSIDER INFERIOR ISCHEMIA ABNORMAL ECG WHEN COMPARED WITH ECG OF 08-APR-2018 15:28, NO SIGNIFICANT CHANGE WAS FOUND Confirmed by ELLIE AUSTIN MD ([id number]) on 04/15/2018 8:35:45 AM Referred By: CRISTOPHER WESTON DRDov Confirmed By:ELLIE AUSTIN MD
--- NOTE | 2018-04-15 09:18 | PN ---
Progress Note, Physician History of Present Illness: In summary, 72F PMH COPD, HTN, AF admitted [facility] after a recent lengthy stay at [facility]. She is currently admitted to our ICU with acute on chronic presumed diastolic CHF, uncontrolled HTN and rapid AF. As per patient and daughter Karlene, she was admitted to [facility] about 6 weeks ago with hematemesis, BRBPR requiring transfusions (taken off Plavix), ARF requiring temporary HD and CHF. As per daughter, no source of bleeding was found. - Current Medication List Current Medications: Active Medications Albuterol/Ipratropium (Duoneb -) 1 amp NEB RQID [facility] Last Admin: 04/14/18 20:08 Dose: 1 amp Atorvastatin Calcium (Lipitor -) 40 mg PO HS [facility] Last Admin: 04/14/18 22:45 Dose: 40 mg Chlorhexidine Gluconate (Hibiclens For Decolonization -) 1 applic TP HS [facility] Last Admin: 04/14/18 22:45 Dose: 1 applic Docusate Sodium (Colace -) 300 mg PO HS [facility] Last Admin: 04/14/18 22:44 Dose: 300 mg Furosemide (Lasix Injection -) 80 mg IVPUSH TID@0600,1200,1800 [facility] Last Admin: 04/15/18 05:31 Dose: 80 mg Heparin Sodium (Porcine) (Heparin -) 5,000 unit SQ TID [facility] Last Admin: 04/15/18 05:32 Dose: 5,000 unit Hydralazine HCl (Apresoline -) 100 mg PO BID [facility] Last Admin: 04/14/18 22:43 Dose: 100 mg Insulin Aspart (Novolog Vial Sliding Scale -) 1 vial SQ ACHS [facility]; Protocol Last Admin: 04/15/18 06:22 Dose: Not Given Isosorbide Dinitrate (Isordil -) 20 mg PO BIDISORDIL [facility] Last Admin: 04/14/18 17:01 Dose: 20 mg Metoprolol Tartrate (Lopressor -) 100 mg PO BID [facility] Last Admin: 04/14/18 22:46 Dose: 100 mg Nystatin (Nystop Powder -) 1 applic TP DAILY [facility] Last Admin: 04/14/18 14:05 Dose: 1 applic Senna (Senna -) 1 tab PO HS [facility] Last Admin: 04/14/18 22:46 Dose: 1 tab Timolol Maleate (Timoptic 0.5%) 1 drop OU BID [facility] Last Admin: 04/14/18 22:58 Dose: 1 drop - Objective Vital Signs: Vital Signs Temperature 98.5 F 04/15/18 04:00 Pulse Rate 99 H 04/15/18 07:39 Respiratory Rate 25 H 04/15/18 07:41 Blood Pressure 130/80 04/15/18 07:39 O2 Sat by Pulse Oximetry (%) 94 L 04/15/18 07:50 Eyes: Yes: WNL, Conjunctiva Clear, EOM Intact HENT: Yes: WNL, Atraumatic, Normocephalic Neck: Yes: WNL, Supple, Trachea Midline Cardiovascular: Yes: Pulse Irregular, S1, S2 Respiratory: Yes: WNL, Regular, CTA Bilaterally Gastrointestinal: Yes: WNL, Normal Bowel Sounds Genitourinary: Yes: WNL Musculoskeletal: Yes: WNL Extremities: Yes: WNL Edema: No Integumentary: Yes: WNL Neurological: Yes: WNL, Alert, Oriented ...Motor Strength: WNL Psychiatric: Yes: WNL Labs: CBC, BMP 04/15/18 05:45 04/15/18 05:45 INR, PTT INR 1.04 (0.82-1.09) 04/08/18 15:40 Assessment/Plan - Problems (1) Acute on chronic systolic and diastolic heart failure, NYHA class 4 Assessment/Plan: Severely reduced LVEF on ECHO. Stopped diltiazem. Continue metoprolol, and increased dose to 75 mg bid due to periods of AF with RVR and elevated BP. Unable to start ACEI, ARB, or RAAS due to renal dysfunctio (though pt responded well to one alexis of aldactone for diuresis). Continue hydralazine + isordil. F/u BUN/Cr, electrolytes, daily wt, Is and Os. Code(s): I50.43 - ACUTE ON CHRONIC COMBINED SYSTOLIC AND DIASTOLIC HRT FAIL (2) Acute exacerbation of COPD with asthma Code(s): J44.1 - CHRONIC OBSTRUCTIVE PULMONARY DISEASE W (ACUTE) EXACERBATION; J45.901 - UNSPECIFIED ASTHMA WITH (ACUTE) EXACERBATION (3) Acute respiratory failure with hypoxia Assessment/Plan: now off BiPap; on Rapid flow Code(s): J96.01 - ACUTE RESPIRATORY FAILURE WITH HYPOXIA (4) HTN (hypertension) Code(s): I10 - ESSENTIAL (PRIMARY) HYPERTENSION Qualifiers: Hypertension type: unspecified Qualified Code(s): I10 - Essential (primary ) hypertension (5) Diabetes Code(s): E11.9 - TYPE 2 DIABETES MELLITUS WITHOUT COMPLICATIONS (6) Morbid obesity Assessment/Plan: discussed need to change diet, lose weight. Nutirtional counseling would be of benefit. Code(s): E66.01 - MORBID (SEVERE) OBESITY DUE TO EXCESS CALORIES (7) Hyperlipidemia Assessment/Plan: f/u lipid panel; start statin (Multiple CAD risks; DM). Code(s): E78.5 - HYPERLIPIDEMIA, UNSPECIFIED (8) Glaucoma Assessment/Plan: on TImoptic Code(s): H40.9 - UNSPECIFIED GLAUCOMA Assessment/Plan ccu time spent examining pt, formulating plan: 36 minutes.
[2018-04-15] MEDS: hydrALAZINE HCL 50 MG TABLET (FP) PO SCH ×2 (09:58→21:49)
[2018-04-15] MEDS: METOPROLOL TARTRATE 50 MG TABLET (FP) PO SCH ×2 (09:58→21:49)
--- NOTE | 2018-04-15 09:58 | PN ---
Progress Note (short form) - Note Progress Note: Seen and examined in the ICU Patient on BiPAP and transitioned to HFNC, flow weaned 60lpm-> 45LPM, cont on FiO2 80% w/ sat 90-92% Net neagtive fluid balance w/ lasix Denies: SUÁREZ/CP/N, c/o mild SOB w. loose cough Current Medications Albuterol/Ipratropium (Duoneb -) 1 amp NEB RQID [facility] Last Admin: 04/15/18 08:00 Dose: 1 amp Atorvastatin Calcium (Lipitor -) 40 mg PO HS [facility] Last Admin: 04/14/18 22:45 Dose: 40 mg Chlorhexidine Gluconate (Hibiclens For Decolonization -) 1 applic TP HS [facility] Last Admin: 04/14/18 22:45 Dose: 1 applic Docusate Sodium (Colace -) 300 mg PO HS [facility] Last Admin: 04/14/18 22:44 Dose: 300 mg Furosemide (Lasix Injection -) 80 mg IVPUSH TID@0600,1200,1800 [facility] Last Admin: 04/15/18 05:31 Dose: 80 mg Heparin Sodium (Porcine) (Heparin -) 5,000 unit SQ TID [facility] Last Admin: 04/15/18 05:32 Dose: 5,000 unit Hydralazine HCl (Apresoline -) 100 mg PO BID [facility] Last Admin: 04/14/18 22:43 Dose: 100 mg Insulin Aspart (Novolog Vial Sliding Scale -) 1 vial SQ ACHS [facility]; Protocol Last Admin: 04/15/18 06:22 Dose: Not Given Isosorbide Dinitrate (Isordil -) 20 mg PO BIDISORDIL [facility] Last Admin: 04/14/18 17:01 Dose: 20 mg Metoprolol Tartrate (Lopressor -) 100 mg PO BID [facility] Last Admin: 04/14/18 22:46 Dose: 100 mg Nystatin (Nystop Powder -) 1 applic TP DAILY [facility] Last Admin: 04/14/18 14:05 Dose: 1 applic Senna (Senna -) 1 tab PO HS [facility] Last Admin: 04/14/18 22:46 Dose: 1 tab Timolol Maleate (Timoptic 0.5%) 1 drop OU BID [facility] Last Admin: 04/14/18 22:58 Dose: 1 drop Vital Signs Period Temp Pulse Resp BP Sys/Stratton Pulse Ox Last 24 Hr 97.4 F-98.5 F 94-119 13-25 122-157/76-109 92-98 Intake & Output 04/12/18 04/13/18 04/14/18 04/15/18 23:59 23:59 23:59 23:59 Intake Total 850 830 730 240 Output Total 2100 3050 2050 300 Balance -1250 -2220 -1320 -60 Weight 133.441 kg 133.356 kg 133.611 kg 132.222 kg Exam: General: obese, awake and alert w/ mild SOB HEENT: PERRL Pulm: very diminished bilat LL CV: irr, irr Abd: obese, SNTND Ext: LE +2/3 edema Neuro: AOx3, SALCIDO, no focal deficits CBC, BMP 04/15/18 05:45 04/15/18 05:45 Current Active Problems Acute exacerbation of COPD with asthma (Acute) Acute on chronic systolic and diastolic heart failure, NYHA class 4 (Acute) Acute respiratory failure with hypoxia (Acute) CHF (congestive heart failure) (Acute) CHF exacerbation (Acute) CKD (chronic kidney disease) (Acute) COPD exacerbation (Acute) Diabetes (Acute) Glaucoma (Acute) HTN (hypertension) (Acute) Hyperlipidemia (Acute) Morbid obesity (Acute) Pneumonia (Acute) Rapid atrial fibrillation (Acute) Respiratory distress (Acute) Sleep apnea (Acute) ASSESSMENT AND PLAN: Acute Hypoxic Respiratory Failure Volume Overload Acute on Chronic Systolic Heart Failure CKD COPD Atrial Fibrillation h/o GI Bleed - Wean HF NC O2 as tolerated Flow from 60lpm->45lpm for comfort - continue lasix, aldactone - monitor urine output, creatinine - keep net negative: lasix BID - monitor lytes - taper off medrol - inhaled bronchodilators - O2 to keep SpO2 89-94% - NIPPV at night - Rate control with metoprolol - DVT prophylaxis - continue ICU monitoring Boerem ACNP CCT: 35m
[2018-04-15] MEDS: TIMOLOL 0.5% OPHTHALMIC SOL 5 ML BOTTLE OU SCH ×2 (09:59→21:54)
[2018-04-15] MEDS: ISOSORBIDE DINITRATE 20 MG TABLET (FP) PO SCH ×2 (09:59→17:52)
[2018-04-15] MEDS: NYSTATIN POWDER 100,000 UNITS/GM - 15 GM TOPICAL POWDER TP SCH (09:59)
--- NOTE | 2018-04-15 13:27 | PN ---
Progress Note (short form) - Note Progress Note: nephrology coverage icu Problem 1. CKD 2. CHF 3. resp failure requiring bipap 4. obesity 5. fluid overload 6. COPD 7. rapid a-fib Current Medications Albuterol/Ipratropium (Duoneb -) 1 amp NEB RQID [facility] Last Admin: 04/14/18 20:08 Dose: 1 amp Atorvastatin Calcium (Lipitor -) 40 mg PO [facility] Chlorhexidine Gluconate (Hibiclens For Decolonization -) 1 applic TP HS [facility] Last Admin: 04/13/18 21:24 Dose: 1 applic Docusate Sodium (Colace -) 300 mg PO HS [facility] Last Admin: 04/13/18 21:24 Dose: 300 mg Furosemide (Lasix Injection -) 80 mg IVPUSH TID@0600,1200,1800 [facility] Last Admin: 04/14/18 17:10 Dose: 80 mg Heparin Sodium (Porcine) (Heparin -) 5,000 unit SQ TID [facility] Last Admin: 04/14/18 14:09 Dose: 5,000 unit Hydralazine HCl (Apresoline -) 100 mg PO BID [facility] Last Admin: 04/14/18 10:56 Dose: 100 mg Insulin Aspart (Novolog Vial Sliding Scale -) 1 vial SQ [facility]; Protocol Last Admin: 04/14/18 17:00 Dose: 2 units Isosorbide Dinitrate (Isordil -) 20 mg PO BIDISORDIL [facility] Last Admin: 04/14/18 17:01 Dose: 20 mg Metoprolol Tartrate (Lopressor -) 100 mg PO BID [facility] Last Admin: 04/14/18 10:58 Dose: 100 mg Nystatin (Nystop Powder -) 1 applic TP DAILY [facility] Last Admin: 04/14/18 14:05 Dose: 1 applic Senna (Senna -) 1 tab PO HS [facility] Last Admin: 04/13/18 21:25 Dose: 1 tab Timolol Maleate (Timoptic 0.5%) 1 drop OU BID [facility] Last Admin: 04/14/18 14:05 Dose: 1 drop Last Vital Signs Temp Pulse Resp BP Pulse Ox 98.0 F 108 H 20 134/109 94 L 04/14/18 18:00 04/14/18 18:00 04/14/18 19:41 04/14/18 18:00 04/14/18 20:35 lungs decr breath sounds heart reg abd soft ext mild edema CBC, BMP 04/15/18 05:45 04/15/18 05:45 IMP- juanis/[id number] stable to improving renal function good urine output with diuretics prerenal azotemia - not on steroids heart failure obesity Plan- monitor urine output
--- NOTE | 2018-04-15 13:51 | PN ---
Progress Note, Physician Chief Complaint: AWAKE ALERT ON 02 SUPPORT EVENTS AND NOTES REVIEWED - Current Medication List Current Medications: Active Medications Albuterol/Ipratropium (Duoneb -) 1 amp NEB RQID [facility] Last Admin: 04/15/18 11:23 Dose: 1 amp Atorvastatin Calcium (Lipitor -) 40 mg PO HS [facility] Last Admin: 04/14/18 22:45 Dose: 40 mg Chlorhexidine Gluconate (Hibiclens For Decolonization -) 1 applic TP HS [facility] Last Admin: 04/14/18 22:45 Dose: 1 applic Docusate Sodium (Colace -) 300 mg PO HS [facility] Last Admin: 04/14/18 22:44 Dose: 300 mg Furosemide (Lasix Injection -) 80 mg IVPUSH TID@0600,1200,1800 [facility] Last Admin: 04/15/18 11:45 Dose: 80 mg Heparin Sodium (Porcine) (Heparin -) 5,000 unit SQ TID [facility] Last Admin: 04/15/18 05:32 Dose: 5,000 unit Hydralazine HCl (Apresoline -) 100 mg PO BID [facility] Last Admin: 04/15/18 09:58 Dose: 100 mg Insulin Aspart (Novolog Vial Sliding Scale -) 1 vial SQ [facility]; Protocol Last Admin: 04/15/18 11:45 Dose: Not Given Isosorbide Dinitrate (Isordil -) 20 mg PO BIDISORDIL [facility] Last Admin: 04/15/18 09:59 Dose: 20 mg Metoprolol Tartrate (Lopressor -) 100 mg PO BID [facility] Last Admin: 04/15/18 09:58 Dose: 100 mg Nystatin (Nystop Powder -) 1 applic TP DAILY [facility] Last Admin: 04/15/18 09:59 Dose: 1 applic Senna (Senna -) 1 tab PO [facility] Last Admin: 04/14/18 22:46 Dose: 1 tab Timolol Maleate (Timoptic 0.5%) 1 drop OU BID [facility] Last Admin: 04/15/18 09:59 Dose: 1 drop - Objective Vital Signs: Vital Signs Temperature 98.5 F 04/15/18 04:00 Pulse Rate 108 H 04/15/18 12:00 Respiratory Rate 20 04/15/18 12:00 Blood Pressure 118/88 04/15/18 12:00 O2 Sat by Pulse Oximetry (%) 94 L 04/15/18 13:47 Constitutional: Yes: Mild Distress Eyes: Yes: WNL HENT: Yes: WNL Neck: Yes: WNL Cardiovascular: Yes: Regular Rate and Rhythm Respiratory: Yes: On Nasal O2, Rhonchi Gastrointestinal: Yes: WNL Genitourinary: Yes: Incontinence Musculoskeletal: Yes: Muscle Weakness Extremities: Yes: Shortened Edema: Yes Integumentary: Yes: WNL Wound/Incision: Yes: Clean/Dry Neurological: Yes: WNL ...Motor Strength: WNL Psychiatric: Yes: WNL Labs: CBC, BMP 04/15/18 05:45 04/15/18 05:45 INR, PTT INR 1.04 (0.82-1.09) 04/08/18 15:40 Problem List - Problems (1) Acute exacerbation of COPD with asthma Code(s): J44.1 - CHRONIC OBSTRUCTIVE PULMONARY DISEASE W (ACUTE) EXACERBATION; J45.901 - UNSPECIFIED ASTHMA WITH (ACUTE) EXACERBATION (2) Acute on chronic systolic and diastolic heart failure, NYHA class 4 Code(s): I50.43 - ACUTE ON CHRONIC COMBINED SYSTOLIC AND DIASTOLIC HRT FAIL (3) Acute respiratory failure with hypoxia Code(s): J96.01 - ACUTE RESPIRATORY FAILURE WITH HYPOXIA (4) Diabetes Code(s): E11.9 - TYPE 2 DIABETES MELLITUS WITHOUT COMPLICATIONS (5) HTN (hypertension) Code(s): I10 - ESSENTIAL (PRIMARY) HYPERTENSION Qualifiers: Hypertension type: unspecified Qualified Code(s): I10 - Essential (primary ) hypertension (6) Hyperlipidemia Code(s): E78.5 - HYPERLIPIDEMIA, UNSPECIFIED (7) Morbid obesity Code(s): E66.01 - MORBID (SEVERE) OBESITY DUE TO EXCESS CALORIES (8) Rapid atrial fibrillation Code(s): I48.91 - UNSPECIFIED ATRIAL FIBRILLATION (9) Sleep apnea Code(s): G47.30 - SLEEP APNEA, UNSPECIFIED Assessment/Plan O2 SUPPORT PULM/CARDIO FOLLOW UP IN ICU CHF PROTOCOL ON IV LASIX CARDIAC WORKUP IN PROGRESS DAILY WEIGHTS CHECK ECHO EF IS 44% REDUCED SYSTOLIC FUNCTION CARDIAC/PULM REHAB
[2018-04-15] MEDS: DOCUSATE SODIUM 100 MG CAPSULE (FP) PO SCH (21:49)
[2018-04-15] MEDS: ATORVASTATIN CA 40 MG TABLET (FP) PO SCH (21:50)
[2018-04-15] MEDS: SENNOSIDES 8.6MG TABLET (FP) PO SCH (21:50)
[2018-04-15] MEDS: CHLORHEXIDINE GLUCONATE 4% CLEANSER FOR DECOLONIZATION TP SCH (21:50)
[2018-04-16] MEDS: FUROSEMIDE 40 MG/4 ML INJECTABLE VIAL IVPUSH SCH ×3 (06:25→18:18)
[2018-04-16] MEDS: INSULIN SLIDING SCALE (NOVOLOG) 1 VIAL SQ SCH ×4 (06:26→21:15)
[2018-04-16] MEDS: ALBUTEROL SO4 2.5/IPRATROPIUM 0.5 INH SOL 3 ML VIAL.NEB. NEB SCH ×4 (06:30→20:00)
[2018-04-16 08:00] LABS: HEMATOCRIT 40.5 % (32.4-45.2); HEMOGLOBIN 12.9 GM/dL (10.7-15.3); MCH 30.4 pg (25.7-33.7); MCHC 31.9 g/dl (32.0-36.0); MEAN CELL VOLUME 95.2 fl (80-96); MEAN PLT VOLUME 11.2 fl (7.5-11.1); PLATELET COUNT 224 K/MM3 (134-434); RBC 4.25 M/mm3 (3.60-5.2); RDW 17.3 % (11.6-15.6); WHITE BLOOD COUNT 11.7 K/mm3 (4.0-10.0)
[2018-04-16 08:25] LABS: ANION GAP 13 (8-16); BLOOD UREA NITROGEN 99 mg/dL (7-18); CALCIUM 8.2 mg/dL (8.5-10.1); CHLORIDE 97 mmol/L (98-107); CO2 31 mmol/L (21-32); CREATININE 2.2 mg/dL (0.55-1.02); GLUCOSE,RANDOM 152 mg/dL (74-106); MAGNESIUM 2.4 mg/dL (1.8-2.4); PHOSPHOROUS 5.7 mg/dL (2.5-4.9); POTASSIUM 4.3 mmol/L (3.5-5.1); SODIUM 141 mmol/L (136-145)
--- NOTE | 2018-04-16 09:55 | PN ---
Progress Note, Physician History of Present Illness: In summary, 72F PMH COPD, HTN, [facility]. She is currently admitted to our ICU with acute on chronic presumed diastolic CHF, uncontrolled HTN and rapid AF. As per patient and daughter Karlene, she was admitted to [facility] [place] about 6 weeks ago with hematemesis, BRBPR requiring transfusions (taken off Plavix), ARF requiring temporary HD and CHF. As per daughter, no source of bleeding was found. - Current Medication List Current Medications: Active Medications Albuterol/Ipratropium (Duoneb -) 1 amp NEB RQID [facility] Last Admin: 04/16/18 06:30 Dose: 1 amp Atorvastatin Calcium (Lipitor -) 40 mg PO HS [facility] Last Admin: 04/15/18 21:50 Dose: 40 mg Chlorhexidine Gluconate (Hibiclens For Decolonization -) 1 applic TP HS [facility] Last Admin: 04/15/18 21:50 Dose: 1 applic Docusate Sodium (Colace -) 300 mg PO HS [facility] Last Admin: 04/15/18 21:49 Dose: 300 mg Furosemide (Lasix Injection -) 80 mg IVPUSH TID@0600,1200,1800 [facility] Last Admin: 04/16/18 06:25 Dose: 80 mg Hydralazine HCl (Apresoline -) 100 mg PO BID [facility] Last Admin: 04/15/18 21:49 Dose: 100 mg Insulin Aspart (Novolog Vial Sliding Scale -) 1 vial SQ ACHS [facility]; Protocol Last Admin: 04/16/18 06:26 Dose: Not Given Isosorbide Dinitrate (Isordil -) 20 mg PO BIDISORDIL [facility] Last Admin: 04/15/18 17:52 Dose: 20 mg Metoprolol Tartrate (Lopressor -) 100 mg PO BID [facility] Last Admin: 04/15/18 21:49 Dose: 100 mg Nystatin (Nystop Powder -) 1 applic TP DAILY [facility] Last Admin: 04/15/18 09:59 Dose: 1 applic Senna (Senna -) 1 tab PO HS [facility] Last Admin: 04/15/18 21:50 Dose: 1 tab Timolol Maleate (Timoptic 0.5%) 1 drop OU BID [facility] Last Admin: 04/15/18 21:54 Dose: 1 drop - Objective Vital Signs: Vital Signs Temperature 97.4 F L 04/16/18 06:00 Pulse Rate 119 H 04/16/18 08:26 Respiratory Rate 22 04/16/18 07:49 Blood Pressure 116/104 04/16/18 07:45 O2 Sat by Pulse Oximetry (%) 91 L 04/16/18 08:26 Eyes: Yes: WNL, Conjunctiva Clear, EOM Intact HENT: Yes: WNL, Atraumatic, Normocephalic Neck: Yes: WNL, Supple, Trachea Midline Cardiovascular: Yes: Pulse Irregular, S1, S2 Respiratory: Yes: WNL, Regular, CTA Bilaterally Gastrointestinal: Yes: WNL, Normal Bowel Sounds Genitourinary: Yes: WNL Musculoskeletal: Yes: WNL Extremities: Yes: WNL Edema: No Integumentary: Yes: WNL Neurological: Yes: WNL, Alert, Oriented ...Motor Strength: WNL Psychiatric: Yes: WNL Labs: CBC, BMP 04/16/18 07:35 04/16/18 07:35 INR, PTT INR 1.04 (0.82-1.09) 04/08/18 15:40 Assessment/Plan - Problems (1) Acute on chronic systolic and diastolic heart failure, NYHA class 4 Assessment/Plan: Severely reduced LVEF on ECHO. Stopped diltiazem. Continue metoprolol, and increased dose to 75 mg bid due to periods of AF with RVR and elevated BP. Unable to start ACEI, ARB, or RAAS due to renal dysfunctio (though pt responded well to one alexis of aldactone for diuresis). Continue hydralazine + isordil. F/u BUN/Cr, electrolytes, daily wt, Is and Os. Code(s): I50.43 - ACUTE ON CHRONIC COMBINED SYSTOLIC AND DIASTOLIC HRT FAIL (2) Acute exacerbation of COPD with asthma Code(s): J44.1 - CHRONIC OBSTRUCTIVE PULMONARY DISEASE W (ACUTE) EXACERBATION; J45.901 - UNSPECIFIED ASTHMA WITH (ACUTE) EXACERBATION (3) Acute respiratory failure with hypoxia Assessment/Plan: now off BiPap; on Rapid flow Code(s): J96.01 - ACUTE RESPIRATORY FAILURE WITH HYPOXIA (4) HTN (hypertension) Code(s): I10 - ESSENTIAL (PRIMARY) HYPERTENSION Qualifiers: Hypertension type: unspecified Qualified Code(s): I10 - Essential (primary ) hypertension (5) Diabetes Code(s): E11.9 - TYPE 2 DIABETES MELLITUS WITHOUT COMPLICATIONS (6) Morbid obesity Assessment/Plan: discussed need to change diet, lose weight. Nutirtional counseling would be of benefit. Code(s): E66.01 - MORBID (SEVERE) OBESITY DUE TO EXCESS CALORIES (7) Hyperlipidemia Assessment/Plan: f/u lipid panel; start statin (Multiple CAD risks; DM). Code(s): E78.5 - HYPERLIPIDEMIA, UNSPECIFIED (8) Glaucoma Assessment/Plan: on TImoptic Code(s): H40.9 - UNSPECIFIED GLAUCOMA Assessment/Plan ccu time spent examining pt, formulating plan: 36 minutes.
[2018-04-16] MEDS: hydrALAZINE HCL 50 MG TABLET (FP) PO SCH ×2 (11:00→21:11)
[2018-04-16] MEDS: TIMOLOL 0.5% OPHTHALMIC SOL 5 ML BOTTLE OU SCH ×2 (11:00→21:20)
[2018-04-16] MEDS: NYSTATIN POWDER 100,000 UNITS/GM - 15 GM TOPICAL POWDER TP SCH (11:00)
[2018-04-16] MEDS: METOPROLOL TARTRATE 50 MG TABLET (FP) PO SCH ×2 (11:00→21:11)
[2018-04-16] MEDS: ISOSORBIDE DINITRATE 20 MG TABLET (FP) PO SCH ×2 (11:00→18:18)
[2018-04-16] MEDS: HEPARIN NA (PORCINE) 5,000 UNITS/ML 1ML VIAL SQ SCH ×3 (12:21→22:24)
--- NOTE | 2018-04-16 12:27 | PN ---
Progress Note (short form) - Note Progress Note: Seen and examined in the ICU Patient on BiPAP and transitioned to HFNC, flow weaned 60lpm-> 45LPM, cont on FiO2 80% w/ sat 90-92% Net neagtive fluid balance w/ lasix Denies: SUÁREZ/CP/N, c/o mild SOB w. loose cough Current Medications Albuterol/Ipratropium (Duoneb -) 1 amp NEB RQID [facility] Last Admin: 04/15/18 08:00 Dose: 1 amp Atorvastatin Calcium (Lipitor -) 40 mg PO HS [facility] Last Admin: 04/14/18 22:45 Dose: 40 mg Chlorhexidine Gluconate (Hibiclens For Decolonization -) 1 applic TP HS [facility] Last Admin: 04/14/18 22:45 Dose: 1 applic Docusate Sodium (Colace -) 300 mg PO HS [facility] Last Admin: 04/14/18 22:44 Dose: 300 mg Furosemide (Lasix Injection -) 80 mg IVPUSH TID@0600,1200,1800 [facility] Last Admin: 04/15/18 05:31 Dose: 80 mg Heparin Sodium (Porcine) (Heparin -) 5,000 unit SQ TID [facility] Last Admin: 04/15/18 05:32 Dose: 5,000 unit Hydralazine HCl (Apresoline -) 100 mg PO BID [facility] Last Admin: 04/14/18 22:43 Dose: 100 mg Insulin Aspart (Novolog Vial Sliding Scale -) 1 vial SQ ACHS [facility]; Protocol Last Admin: 04/15/18 06:22 Dose: Not Given Isosorbide Dinitrate (Isordil -) 20 mg PO BIDISORDIL [facility] Last Admin: 04/14/18 17:01 Dose: 20 mg Metoprolol Tartrate (Lopressor -) 100 mg PO BID [facility] Last Admin: 04/14/18 22:46 Dose: 100 mg Nystatin (Nystop Powder -) 1 applic TP DAILY [facility] Last Admin: 04/14/18 14:05 Dose: 1 applic Senna (Senna -) 1 tab PO HS [facility] Last Admin: 04/14/18 22:46 Dose: 1 tab Timolol Maleate (Timoptic 0.5%) 1 drop OU BID [facility] Last Admin: 04/14/18 22:58 Dose: 1 drop Vital Signs Period Temp Pulse Resp BP Sys/Stratton Pulse Ox Last 24 Hr 97.4 F-98.5 F 94-119 13-25 122-157/76-109 92-98 Intake & Output 04/12/18 04/13/18 04/14/18 04/15/18 23:59 23:59 23:59 23:59 Intake Total 850 830 730 240 Output Total 2100 3050 2050 300 Balance -1250 -2220 -1320 -60 Weight 133.441 kg 133.356 kg 133.611 kg 132.222 kg Exam: General: obese, awake and alert w/ mild SOB HEENT: PERRL Pulm: very diminished bilat LL CV: irr, irr Abd: obese, SNTND Ext: LE +2/3 pitting edema Neuro: AOx3, SALCIDO, no focal deficits CBC,CMP WBC 11.7 K/mm3 (4.0-10.0) H 04/16/18 07:35 RBC 4.25 M/mm3 (3.60-5.2) 04/16/18 07:35 Hgb 12.9 GM/dL (10.7-15.3) 04/16/18 07:35 Hct 40.5 % (32.4-45.2) 04/16/18 07:35 MCV 95.2 fl (80-96) 04/16/18 07:35 MCH 30.4 pg (25.7-33.7) 04/16/18 07:35 MCHC 31.9 g/dl (32.0-36.0) L 04/16/18 07:35 RDW 17.3 % (11.6-15.6) H 04/16/18 07:35 Plt Count 224 K/MM3 (134-434) 04/16/18 07:35 MPV 11.2 fl (7.5-11.1) H 04/16/18 07:35 Absolute Neuts (auto) 8.9 # 04/14/18 05:50 Total Counted 100 04/08/18 15:40 Neutrophils % 83.6 % (42.8-82.8) H 04/14/18 05:50 Neutrophils % (Manual) 91.0 % (42.8-82.8) H 04/08/18 15:40 Lymphocytes % 8.5 % (8-40) D 04/14/18 05:50 Lymphocytes % (Manual) 7.0 % (8-40) L 04/08/18 15:40 Monocytes % 7.6 % (3.8-10.2) D 04/14/18 05:50 Monocytes % (Manual) 2 % (3.8-10.2) L 04/08/18 15:40 Eosinophils % 0.1 % (0-4.5) D 04/14/18 05:50 Basophils % 0.2 % (0-2.0) 04/14/18 05:50 Nucleated RBC % 1 % (0-0) H 04/14/18 05:50 Differential Comment Man diff performed 04/08/18 15:40 Platelet Estimate Adequate 04/08/18 15:40 Platelet Comment 04/08/18 15:40 Polychromasia 1+ 04/08/18 15:40 Anisocytosis 1+ 04/08/18 15:40 Macrocytosis 1+ 04/08/18 15:40 Sodium 141 mmol/L (136-145) 04/16/18 07:35 Potassium 4.3 mmol/L (3.5-5.1) 04/16/18 07:35 Chloride 97 mmol/L (98-107) L 04/16/18 07:35 Carbon Dioxide 31 mmol/L (21-32) 04/16/18 07:35 Anion Gap 13 (8-16) 04/16/18 07:35 BUN 99 mg/dL (7-18) H 04/16/18 07:35 Creatinine 2.2 mg/dL (0.55-1.02) H 04/16/18 07:35 Creat Clearance w eGFR 21.88 (>60) 04/16/18 07:35 POC Glucometer 142.58384 UNITS (80-120) 04/15/18 21:53 Random Glucose 152 mg/dL (74-106) H 04/16/18 07:35 Hemoglobin A1c % 5.8 % (4.8-6.0) 04/09/18 05:30 Lactic Acid 1.6 mmol/L (0.0-2.0) 04/08/18 15:40 Calcium 8.2 mg/dL (8.5-10.1) L 04/16/18 07:35 Phosphorus 5.7 mg/dL (2.5-4.9) H 04/16/18 07:35 Magnesium 2.4 mg/dL (1.8-2.4) 04/16/18 07:35 Total Bilirubin 0.5 mg/dL (0.2-1.0) D 04/15/18 05:45 AST 14 U/L (15-37) L 04/15/18 05:45 ALT 21 U/L (12-78) 04/15/18 05:45 Alkaline Phosphatase 67 U/L (45-117) 04/15/18 05:45 Troponin I < 0.02 ng/ml (0.00-0.05) 04/08/18 15:40 B-Natriuretic Peptide 7848.32 pg/ml (5-125) H 04/09/18 05:30 Total Protein 6.1 g/dl (6.4-8.2) L 04/15/18 05:45 Albumin 2.7 g/dl (3.4-5.0) L 04/15/18 05:45 Triglycerides 121 mg/dL (35-160) 04/13/18 06:00 Cholesterol 265 mg/dL (50-200) H 04/13/18 06:00 Total LDL Cholesterol 171 mg/dL (5-100) H 04/13/18 06:00 HDL Cholesterol 63 mg/dL (40-60) H 04/13/18 06:00 TSH 0.91 uIU/ml (0.358-3.74) 04/13/18 06:00 CXR today still with pulm edema,vasc congestion, small effusions Current Active Problems Acute exacerbation of COPD with asthma (Acute) Acute on chronic systolic and diastolic heart failure, NYHA class 4 (Acute) Acute respiratory failure with hypoxia (Acute) CHF (congestive heart failure) (Acute) CHF exacerbation (Acute) CKD (chronic kidney disease) (Acute) COPD exacerbation (Acute) Diabetes (Acute) Glaucoma (Acute) HTN (hypertension) (Acute) Hyperlipidemia (Acute) Morbid obesity (Acute) Pneumonia (Acute) Rapid atrial fibrillation (Acute) Respiratory distress (Acute) Sleep apnea (Acute) ASSESSMENT AND PLAN: Acute Hypoxic Respiratory Failure Volume Overload Acute on Chronic Systolic Heart Failure CKD COPD Atrial Fibrillation h/o GI Bleed - Wean HF NC O2 as tolerated Flow from 60lpm->45lpm for comfort - NIV as needed - continue diuresis, as tolerated, on 240 lasx daily, add metolazone - monitor urine output, creatinine - monitor lytes - tapered off medrol - inhaled bronchodilators - O2 to keep SpO2 89-94% - NIPPV at night - Rate control with metoprolol - DVT prophylaxis - continue ICU monitoring [facility] [id number]
--- NOTE | 2018-04-16 12:49 | PN ---
Progress Note, Physician Chief Complaint: AWAKE ALERT COMFORTABLE ON 02 SUPPORT - Current Medication List Current Medications: Active Medications Albuterol/Ipratropium (Duoneb -) 1 amp NEB RQID [facility] Last Admin: 04/16/18 11:30 Dose: 1 amp Atorvastatin Calcium (Lipitor -) 40 mg PO HS [facility] Last Admin: 04/15/18 21:50 Dose: 40 mg Chlorhexidine Gluconate (Hibiclens For Decolonization -) 1 applic TP HS [facility] Last Admin: 04/15/18 21:50 Dose: 1 applic Docusate Sodium (Colace -) 300 mg PO HS [facility] Last Admin: 04/15/18 21:49 Dose: 300 mg Furosemide (Lasix Injection -) 80 mg IVPUSH TID@0600,1200,1800 [facility] Last Admin: 04/16/18 11:34 Dose: 80 mg Heparin Sodium (Porcine) (Heparin -) 5,000 unit SQ Q8H-IV [facility] Last Admin: 04/16/18 12:21 Dose: 5,000 unit Hydralazine HCl (Apresoline -) 100 mg PO BID [facility] Last Admin: 04/16/18 11:00 Dose: 100 mg Insulin Aspart (Novolog Vial Sliding Scale -) 1 vial SQ [facility]; Protocol Last Admin: 04/16/18 11:10 Dose: Not Given Isosorbide Dinitrate (Isordil -) 20 mg PO BIDISORDIL [facility] Last Admin: 04/16/18 11:00 Dose: 20 mg Metoprolol Tartrate (Lopressor -) 100 mg PO BID [facility] Last Admin: 04/16/18 11:00 Dose: 100 mg Nystatin (Nystop Powder -) 1 applic TP DAILY [facility] Last Admin: 04/16/18 11:00 Dose: 1 applic Senna (Senna -) 1 tab PO HS [facility] Last Admin: 04/15/18 21:50 Dose: 1 tab Timolol Maleate (Timoptic 0.5%) 1 drop OU BID [facility] Last Admin: 04/16/18 11:00 Dose: 1 drop - Objective Vital Signs: Vital Signs Temperature 97.5 F L 04/16/18 10:00 Pulse Rate 119 H 04/16/18 08:26 Respiratory Rate 22 04/16/18 07:49 Blood Pressure 116/104 04/16/18 07:45 O2 Sat by Pulse Oximetry (%) 93 L 04/16/18 10:47 Constitutional: Yes: Mild Distress Eyes: Yes: WNL HENT: Yes: WNL Neck: Yes: WNL Cardiovascular: Yes: Tachycardia Respiratory: Yes: On Nasal O2, SOB on Exertion Gastrointestinal: Yes: WNL Genitourinary: Yes: Incontinence Musculoskeletal: Yes: Muscle Weakness Extremities: Yes: Other Edema: Yes Integumentary: Yes: Other Wound/Incision: Yes: Dressing Dry and Intact Neurological: Yes: Pre-Existing Deficit ...Motor Strength: LLE, RLE Psychiatric: Yes: WNL Labs: CBC, BMP 04/16/18 07:35 04/16/18 07:35 INR, PTT INR 1.04 (0.82-1.09) 04/08/18 15:40 Problem List - Problems (1) Acute exacerbation of COPD with asthma Code(s): J44.1 - CHRONIC OBSTRUCTIVE PULMONARY DISEASE W (ACUTE) EXACERBATION; J45.901 - UNSPECIFIED ASTHMA WITH (ACUTE) EXACERBATION (2) Acute on chronic systolic and diastolic heart failure, NYHA class 4 Code(s): I50.43 - ACUTE ON CHRONIC COMBINED SYSTOLIC AND DIASTOLIC HRT FAIL (3) Acute respiratory failure with hypoxia Code(s): J96.01 - ACUTE RESPIRATORY FAILURE WITH HYPOXIA (4) Diabetes Code(s): E11.9 - TYPE 2 DIABETES MELLITUS WITHOUT COMPLICATIONS (5) HTN (hypertension) Code(s): I10 - ESSENTIAL (PRIMARY) HYPERTENSION Qualifiers: Hypertension type: unspecified Qualified Code(s): I10 - Essential (primary ) hypertension (6) Hyperlipidemia Code(s): E78.5 - HYPERLIPIDEMIA, UNSPECIFIED (7) Morbid obesity Code(s): E66.01 - MORBID (SEVERE) OBESITY DUE TO EXCESS CALORIES (8) Rapid atrial fibrillation Code(s): I48.91 - UNSPECIFIED ATRIAL FIBRILLATION (9) Sleep apnea Code(s): G47.30 - SLEEP APNEA, UNSPECIFIED Assessment/Plan O2 SUPPORT PULM/CARDIO FOLLOW UP IN ICU CHF PROTOCOL ON IV LASIX CARDIAC WORKUP IN PROGRESS DAILY WEIGHTS CHECK ECHO EF IS 44% REDUCED SYSTOLIC FUNCTION CARDIAC/PULM REHAB
--- NOTE | 2018-04-16 16:28 | PN ---
Progress Note (short form) - Note Progress Note: nephrology coverage icu Problem 1. CKD 2. CHF 3. resp failure requiring bipap 4. obesity 5. fluid overload 6. COPD 7. rapid a-fib Active Medications Albuterol/Ipratropium (Duoneb -) 1 amp NEB RQID [facility] Last Admin: 04/16/18 11:30 Dose: 1 amp Atorvastatin Calcium (Lipitor -) 40 mg PO HS [facility] Last Admin: 04/15/18 21:50 Dose: 40 mg Chlorhexidine Gluconate (Hibiclens For Decolonization -) 1 applic TP HS [facility] Last Admin: 04/15/18 21:50 Dose: 1 applic Docusate Sodium (Colace -) 300 mg PO HS [facility] Last Admin: 04/15/18 21:49 Dose: 300 mg Furosemide (Lasix Injection -) 80 mg IVPUSH TID@0600,1200,1800 [facility] Last Admin: 04/16/18 11:34 Dose: 80 mg Heparin Sodium (Porcine) (Heparin -) 5,000 unit SQ Q8H-IV [facility] Last Admin: 04/16/18 12:21 Dose: 5,000 unit Hydralazine HCl (Apresoline -) 100 mg PO BID [facility] Last Admin: 04/16/18 11:00 Dose: 100 mg Insulin Aspart (Novolog Vial Sliding Scale -) 1 vial SQ [facility]; Protocol Last Admin: 04/16/18 11:10 Dose: Not Given Isosorbide Dinitrate (Isordil -) 20 mg PO BIDISORDIL [facility] Last Admin: 04/16/18 11:00 Dose: 20 mg Metoprolol Tartrate (Lopressor -) 100 mg PO BID [facility] Last Admin: 04/16/18 11:00 Dose: 100 mg Nystatin (Nystop Powder -) 1 applic TP DAILY [facility] Last Admin: 04/16/18 11:00 Dose: 1 applic Senna (Senna -) 1 tab PO HS [facility] Last Admin: 04/15/18 21:50 Dose: 1 tab Timolol Maleate (Timoptic 0.5%) 1 drop OU BID [facility] Last Admin: 04/16/18 11:00 Dose: 1 drop Last Vital Signs Temp Pulse Resp BP Pulse Ox 97.5 F L 87 20 105/78 94 L 04/16/18 14:31 04/16/18 14:31 04/16/18 14:31 04/16/18 14:31 04/16/18 14:04 Intake & Output 04/16/18 04/16/18 04/16/18 07:59 15:59 23:59 Intake Total 60 Output Total 450 200 Balance -390 -200 Weight 291 lb 12.8 oz lungs decr breath sounds heart reg abd soft ext mild edema CBC, BMP 04/16/18 07:35 04/16/18 07:35 CBC, BMP 04/15/18 05:45 04/15/18 05:45 IMP- juanis/[id number] stable to improving renal function decreased good urine output today in spite of diuretics prerenal azotemia - not on steroids heart failure obesity Plan- will give small amount of bolus tonight and monitor urine output
[2018-04-16] MEDS ORDERED: PT OWN MED DRAWER 7, Y5N ONE (18:11)
[2018-04-16] MEDS ORDERED: SODIUM CHLORIDE 250 ML IV STA (19:52)
[2018-04-16] MEDS: SENNOSIDES 8.6MG TABLET (FP) PO SCH (21:10)
[2018-04-16] MEDS: DOCUSATE SODIUM 100 MG CAPSULE (FP) PO SCH (21:11)
[2018-04-16] MEDS: ATORVASTATIN CA 40 MG TABLET (FP) PO SCH (21:15)
[2018-04-16] MEDS: CHLORHEXIDINE GLUCONATE 4% CLEANSER FOR DECOLONIZATION TP SCH (21:15)
[2018-04-16] MEDS: ACETAMINOPHEN 325 MG TABLET (FP) PO PRN (23:10)
[2018-04-17] MEDS: HEPARIN NA (PORCINE) 5,000 UNITS/ML 1ML VIAL SQ SCH ×3 (05:54→21:43)
[2018-04-17] MEDS: FUROSEMIDE 40 MG/4 ML INJECTABLE VIAL IVPUSH SCH ×4 (05:55→17:02)
[2018-04-17 06:19] LABS: HEMOGLOBIN 12.6 GM/dL (10.7-15.3); MCH 30.9 pg (25.7-33.7); MCHC 32.3 g/dl (32.0-36.0); MEAN CELL VOLUME 95.7 fl (80-96); MEAN PLT VOLUME 11.3 fl (7.5-11.1); PLATELET COUNT 226 K/MM3 (134-434); RBC 4.07 M/mm3 (3.60-5.2); RDW 17.3 % (11.6-15.6); WHITE BLOOD COUNT 11.1 K/mm3 (4.0-10.0)
[2018-04-17] MEDS: INSULIN SLIDING SCALE (NOVOLOG) 1 VIAL SQ SCH ×4 (06:34→21:49)
[2018-04-17 06:47] LABS: ANION GAP 15 (8-16); CALCIUM 8.4 mg/dL (8.5-10.1); CHLORIDE 96 mmol/L (98-107); CO2 32 mmol/L (21-32); CREATININE 2.8 mg/dL (0.55-1.02); GLUCOSE,RANDOM 150 mg/dL (74-106); POTASSIUM 4.6 mmol/L (3.5-5.1); SODIUM 143 mmol/L (136-145)
[2018-04-17 07:03] LABS: BLOOD UREA NITROGEN 115 mg/dL (7-18)
[2018-04-17] MEDS: ALBUTEROL SO4 2.5/IPRATROPIUM 0.5 INH SOL 3 ML VIAL.NEB. NEB SCH ×4 (07:30→20:39)
[2018-04-17] MEDS ORDERED: PT OWN MED DRAWER 7, Y5N ONE ×2 (09:07→16:58)
[2018-04-17] MEDS: hydrALAZINE HCL 50 MG TABLET (FP) PO SCH ×2 (09:28→21:44)
[2018-04-17] MEDS: ISOSORBIDE DINITRATE 20 MG TABLET (FP) PO SCH ×2 (09:28→17:02)
[2018-04-17] MEDS: METOPROLOL TARTRATE 50 MG TABLET (FP) PO SCH ×2 (09:32→21:44)
[2018-04-17] MEDS: TIMOLOL 0.5% OPHTHALMIC SOL 5 ML BOTTLE OU SCH ×2 (09:34→21:51)
[2018-04-17] MEDS: NYSTATIN POWDER 100,000 UNITS/GM - 15 GM TOPICAL POWDER TP SCH (09:35)
--- NOTE | 2018-04-17 10:32 | PN ---
Progress Note, Physician History of Present Illness: In summary, 72F PMH COPD, HTN, AF [facility] after a recent lengthy stay at [facility]. She is currently admitted to our ICU with acute on chronic presumed diastolic CHF, uncontrolled HTN and rapid AF. As per patient and daughter Karlene, she was admitted to [facility] about 6 weeks ago with hematemesis, BRBPR requiring transfusions (taken off Plavix), ARF requiring temporary HD and CHF. As per daughter, no source of bleeding was found. - Current Medication List Current Medications: Active Medications Acetaminophen (Tylenol -) 650 mg PO Q6H PRN PRN Reason: PAIN LEVEL 4 - 6 Last Admin: 04/16/18 23:10 Dose: 650 mg Albuterol/Ipratropium (Duoneb -) 1 amp NEB RQID [facility] Last Admin: 04/17/18 07:30 Dose: 1 amp Atorvastatin Calcium (Lipitor -) 40 mg PO HS [facility] Last Admin: 04/16/18 21:15 Dose: 40 mg Chlorhexidine Gluconate (Hibiclens For Decolonization -) 1 applic TP HS [facility] Last Admin: 04/16/18 21:15 Dose: 1 applic Docusate Sodium (Colace -) 300 mg PO HS [facility] Last Admin: 04/16/18 21:11 Dose: 300 mg Furosemide (Lasix Injection -) 80 mg IVPUSH TID@0600,1200,1800 [facility] Last Admin: 04/17/18 06:22 Dose: Not Given Heparin Sodium (Porcine) (Heparin -) 5,000 unit SQ TID [facility] Last Admin: 04/17/18 05:54 Dose: 5,000 unit Hydralazine HCl (Apresoline -) 100 mg PO BID [facility] Last Admin: 04/17/18 09:28 Dose: 100 mg Insulin Aspart (Novolog Vial Sliding Scale -) 1 vial SQ ACHS [facility]; Protocol Last Admin: 04/17/18 06:34 Dose: 2 units Isosorbide Dinitrate (Isordil -) 20 mg PO BIDISORDIL [facility] Last Admin: 04/17/18 09:28 Dose: 20 mg Metoprolol Tartrate (Lopressor -) 100 mg PO BID [facility] Last Admin: 04/17/18 09:32 Dose: 100 mg Nystatin (Nystop Powder -) 1 applic TP DAILY [facility] Last Admin: 04/17/18 09:35 Dose: 1 applic Senna (Senna -) 1 tab PO HS [facility] Last Admin: 04/16/18 21:10 Dose: 1 tab Spironolactone (Aldactone -) 25 mg PO ONCE ONE Stop: 04/17/18 11:01 Timolol Maleate (Timoptic 0.5%) 1 drop OU BID [facility] Last Admin: 04/17/18 09:34 Dose: 1 drop - Objective Vital Signs: Vital Signs Temperature 98 F 04/17/18 10:00 Pulse Rate 118 H 04/17/18 10:00 Respiratory Rate 20 04/17/18 10:00 Blood Pressure 108/80 04/17/18 10:00 O2 Sat by Pulse Oximetry (%) 92 L 04/17/18 09:45 Eyes: Yes: WNL, Conjunctiva Clear, EOM Intact HENT: Yes: WNL, Atraumatic, Normocephalic Neck: Yes: WNL, Supple, Trachea Midline Cardiovascular: Yes: JVD, S1, S2 Respiratory: Yes: WNL, Regular, CTA Bilaterally Gastrointestinal: Yes: WNL, Normal Bowel Sounds Genitourinary: Yes: WNL Musculoskeletal: Yes: WNL Extremities: Yes: WNL Edema: No Integumentary: Yes: WNL Neurological: Yes: WNL, Alert, Oriented ...Motor Strength: WNL Psychiatric: Yes: WNL Labs: CBC, BMP 04/17/18 05:30 04/17/18 05:30 INR, PTT INR 1.04 (0.82-1.09) 04/08/18 15:40 Assessment/Plan - Problems (1) Acute on chronic systolic and diastolic heart failure, NYHA class 4 Assessment/Plan: Severely reduced LVEF on ECHO. Stopped diltiazem. Continue metoprolol, and increased dose to 75 mg bid due to periods of AF with RVR and elevated BP. Unable to start ACEI, ARB, or RAAS due to renal dysfunctio (though pt responded well to one alexis of aldactone for diuresis). Continue hydralazine + isordil. F/u BUN/Cr, electrolytes, daily wt, Is and Os. Code(s): I50.43 - ACUTE ON CHRONIC COMBINED SYSTOLIC AND DIASTOLIC HRT FAIL (2) Acute exacerbation of COPD with asthma Code(s): J44.1 - CHRONIC OBSTRUCTIVE PULMONARY DISEASE W (ACUTE) EXACERBATION; J45.901 - UNSPECIFIED ASTHMA WITH (ACUTE) EXACERBATION (3) Acute respiratory failure with hypoxia Assessment/Plan: now off BiPap; on Rapid flow Code(s): J96.01 - ACUTE RESPIRATORY FAILURE WITH HYPOXIA (4) HTN (hypertension) Code(s): I10 - ESSENTIAL (PRIMARY) HYPERTENSION Qualifiers: Hypertension type: unspecified Qualified Code(s): I10 - Essential (primary ) hypertension (5) Diabetes Code(s): E11.9 - TYPE 2 DIABETES MELLITUS WITHOUT COMPLICATIONS (6) Morbid obesity Assessment/Plan: discussed need to change diet, lose weight. Nutirtional counseling would be of benefit. Code(s): E66.01 - MORBID (SEVERE) OBESITY DUE TO EXCESS CALORIES (7) Hyperlipidemia Assessment/Plan: f/u lipid panel; start statin (Multiple CAD risks; DM). Code(s): E78.5 - HYPERLIPIDEMIA, UNSPECIFIED (8) Glaucoma Assessment/Plan: on TImoptic Code(s): H40.9 - UNSPECIFIED GLAUCOMA Assessment/Plan [facility]cu time spent examining pt, formulating plan: 36 minutes.
[2018-04-17] MEDS ORDERED: SPIRONOLACTONE 25 MG TABLET (FP) PO ONE (11:00)
--- NOTE | 2018-04-17 11:41 | CONS ---
DATE OF CONSULTATION: 04/17/2018 REFERRING PHYSICIAN: Neena Martinez MD HISTORY OF PRESENT ILLNESS: The patient is a 72-year-old woman with an extensive past medical history including COPD/asthma, congestive heart failure, recent GI bleed in early February 2018 now off anticoagulation for atrial fibrillation as well as diffuse osteoarthritis, right shoulder surgery who was admitted with shortness of breath from [facility]. The patient was diagnosed with acute hypoxic hypercarbic respiratory failure possibly due to pneumonia and/or COPD/asthma exacerbation and also congestive heart failure. Chest x-ray showed an enlarged heart, congestive changes, left effusion at left base, possible infiltrate. She underwent ultrasound of the lower extremities, which was negative for deep vein thrombosis. She had elevated BUN 69, creatinine 2.4 on admission with WBCs 9, hemoglobin 11, platelet count 261, albumin low 3.2. The patient underwent ultrasound of the kidneys, which showed echogenic kidneys consistent with medical renal disease. No hydronephrosis. Bilateral renal cysts. Echocardiogram showed severely reduced left ventricular ejection fraction, although technically difficult, and no ejection fraction was identified in the report. Also decreased [id number] reduced right ventricular systolic function was also noted. Most recent chemistry done this morning showed increasing BUN at 115, creatinine increasing to 2.8, chloride 96, CO2 is 32. She is on BiPAP currently. CBC was fairly stable, although WBCs slightly elevated at 11.1. Hemoglobin stable at 12.6. The patient was evaluated by therapy but only able to do exercise. Patient is awake and alert and is seen in rehabilitation evaluation. PAST MEDICAL AND SURGICAL HISTORY: As above. COPD/asthma, congestive heart failure, recent GI bleed, atrial fibrillation not on anticoagulation since GI bleed. Also diffuse osteoarthritis knees, lumbar spine as well as right shoulder surgery, morbid obesity. SOCIAL HISTORY: Per the patient, she lives in an apartment. No stairs. Premorbidly used a cane and oxygen. Current function, the patient is in the ICU and, again, only able to tolerate some exercise. REVIEW OF SYSTEMS: She denies any lightheadedness, dizziness, any blurry vision, double vision, any nausea, vomiting, difficulty swallowing, difficulty chewing. She is short of breath with any exertion. The patient has no abdominal discomfort. No bowel or bladder complaints, although she has a [place] currently. She has diffuse joint arthralgias including the lumbar spine, shoulders, and knees but none currently. No numbness or tingling. No fever or chills. PHYSICAL EXAMINATION: General: The patient is seen lying in bed. She is a morbidly obese woman. She is in no acute distress. She has a BiPAP mask on. HEENT: She is normocephalic and atraumatic. Extraocular muscles appear intact. Neck: Supple. Extremities: Without any calf tenderness. There is some edema but no severe pitting edema. Trace to +1 edema. Skin: Without any rash or breakdown. Neuromuscular: She is awake, alert, oriented x3. Cranial nerves are grossly intact, although not entirely able to identify due to BiPAP mask. She has good range of motion and fairly good strength in the upper extremities with some proximal shoulder girdle weakness at 3+/5 and his girdle weakness at 2/5 to 3/5. No medial or lateral joint line tenderness in the knees. Good dorsiflexion and plantar flexion. Normal sensation to light touch. OVERALL IMPRESSION: 1. Significant deficits in mobility and activities of daily living. 2. Deconditioning. 3. Acute hypoxic hypercapnic respiratory failure. 4. Congestive heart failure. 5. Cardiomyopathy. 6. Possible pneumonia. 7. Chronic obstructive pulmonary disease/asthma exacerbation possibly. 8. Acute on chronic kidney disease. 9. Increased risk for deep vein thrombosis due to immobility. 10. History of atrial fibrillation not on anticoagulation since early February. 11. History of recent gastrointestinal bleed in early February. 12. Morbid obesity. 13. Increased risk for skin breakdown. PLAN/SUGGESTION: 1. Physical therapy at the bedside for range of motion, isometric strengthening, PREs as tolerating progressing when out of the ICU or when able to bed mobility, transfers, and gait. 2. Sit up in bed if able. 3. Subcutaneous heparin for DVT prophylaxis. 4. Skin precautions. Monitor heel and sacrum for breakdown. 5. Monitor BUN and creatinine nephrology evaluation and follow up as directed. 6. The patient will need to return to a [facility] facility once medically stable. Thank you for this referral. STEVEN TORIBIO M.D. HERMES/[id number]
[2018-04-17] MEDS ORDERED: METOPROLOL TARTRATE 5 MG/5 ML VIAL IVPUSH PRN (12:00)
--- NOTE | 2018-04-17 12:11 | PN ---
Teaching Attending Note Name of Resident: Lily Del Rio ATTENDING PHYSICIAN STATEMENT I saw and evaluated the patient. I reviewed the resident's note and discussed the case with the resident. I agree with the resident's findings and plan as documented. SUBJECTIVE: Pt seen and examined in the ICU. Remains on HFOT with 80% FiO2. OBJECTIVE: Vital Signs Period Temp Pulse Resp BP Sys/Stratton Pulse Ox Last 24 Hr 97.3 F-98.5 F 87-120 16-24 80-141/59-100 91-94 Intake & Output 04/14/18 04/15/18 04/16/18 04/17/18 23:59 23:59 23:59 23:59 Intake Total 730 660 950 240 Output Total 2050 1000 750 150 Balance -1320 -340 200 90 Weight 133.611 kg 132.222 kg 132.358 kg 129.682 kg Gen: tachypneic at rest Heart: RRR Lung: scattered rhonchi Abd: soft, nontender Ext: + edema CBC, BMP 04/17/18 05:30 04/17/18 05:30 Active Medications Acetaminophen (Tylenol -) 650 mg PO Q6H PRN PRN Reason: PAIN LEVEL 4 - 6 Last Admin: 04/16/18 23:10 Dose: 650 mg Albuterol/Ipratropium (Duoneb -) 1 amp NEB RQID [facility] Last Admin: 04/17/18 11:00 Dose: 1 amp Atorvastatin Calcium (Lipitor -) 40 mg PO [facility] Last Admin: 04/16/18 21:15 Dose: 40 mg Chlorhexidine Gluconate (Hibiclens For Decolonization -) 1 applic TP [facility] Last Admin: 04/16/18 21:15 Dose: 1 applic Docusate Sodium (Colace -) 300 mg PO [facility] Last Admin: 04/16/18 21:11 Dose: 300 mg Furosemide (Lasix Injection -) 80 mg IVPUSH TID@0600,1200,1800 [facility] Last Admin: 04/17/18 06:22 Dose: Not Given Heparin Sodium (Porcine) (Heparin -) 5,000 unit SQ TID [facility] Last Admin: 04/17/18 05:54 Dose: 5,000 unit Hydralazine HCl (Apresoline -) 100 mg PO BID [facility] Last Admin: 04/17/18 09:28 Dose: 100 mg Insulin Aspart (Novolog Vial Sliding Scale -) 1 vial SQ ACHS [facility]; Protocol Last Admin: 04/17/18 06:34 Dose: 2 units Isosorbide Dinitrate (Isordil -) 20 mg PO BIDISORDIL [facility] Last Admin: 04/17/18 09:28 Dose: 20 mg Metoprolol Tartrate (Lopressor -) 100 mg PO BID [facility] Last Admin: 04/17/18 09:32 Dose: 100 mg Metoprolol Tartrate (Lopressor Injection -) 5 mg IVPUSH Q4H PRN PRN Reason: HYPERTENSION Nystatin (Nystop Powder -) 1 applic TP DAILY [facility] Last Admin: 04/17/18 09:35 Dose: 1 applic Senna (Senna -) 1 tab PO HS [facility] Last Admin: 04/16/18 21:10 Dose: 1 tab Timolol Maleate (Timoptic 0.5%) 1 drop OU BID [facility] Last Admin: 04/17/18 09:34 Dose: 1 drop ASSESSMENT AND PLAN: Acute Hypoxic Respiratory Failure Volume Overload Acute on Chronic Systolic Heart Failure CKD COPD Atrial Fibrillation h/o GI Bleed - continue lasix, aldactone - monitor urine output, creatinine - keep net negative - may need HD with ultrafiltration - monitor lytes - inhaled bronchodilators - O2 to keep SpO2 >90% - continue HFOT - BiPAP at night - increase rate control with metoprolol - DVT prophylaxis - continue ICU monitoring critical care time spent in reviewing chart, evaluating patient and formulating plan 35 min
--- NOTE | 2018-04-17 13:25 | PN ---
Physical Exam: SUBJECTIVE: Patient seen and examined. Says her breathing status has not changed. Does not feel improvement. Denies chest pain. Remains on HFNC 80% FIO2 BiPap at night Tachy in the 120's. OBJECTIVE: Vital Signs Period Temp Pulse Resp BP Sys/Stratton Pulse Ox Last 24 Hr 97.3 F-98.5 F 87-120 16-24 80-141/59-100 91-94 GENERAL: On bipap, in no acute distress. EYES: extraocular movements intact, sclera anicteric, conjunctiva clear. ENT: oropharynx clear without exudates, moist mucous membranes. LUNGS: scattered rhonchi, decreased BS HEART: RRR ABDOMEN: Soft, nontender, nondistended, normoactive bowel sounds EXTREMITIES: 2+ pulses, warm, pedal edema b/l NEUROLOGICAL: Cranial nerves II through XII grossly intact. Laboratory Results - last 24 hr 04/17/18 04/17/18 05:30 05:30 WBC 11.1 H RBC 4.07 Hgb 12.6 Hct 39.0 MCV 95.7 MCH 30.9 MCHC 32.3 RDW 17.3 H Plt Count 226 MPV 11.3 H Sodium 143 Potassium 4.6 Chloride 96 L Carbon Dioxide 32 Anion Gap 15 BUN 115 H* Creatinine 2.8 H Creat Clearance w eGFR 16.56 Random Glucose 150 H Calcium 8.4 L Active Medications Generic Name Dose Route Start Last Admin Trade Name Freq PRN Reason Stop Dose Admin Acetaminophen 650 mg 04/16/18 22:38 04/16/18 23:10 Tylenol - PO 650 mg Q6H PRN Administration PAIN LEVEL 4 - 6 Albuterol/Ipratropium 1 amp 04/16/18 05:15 04/17/18 11:00 Duoneb - NEB 1 amp RQID [facility] Administration Atorvastatin Calcium 40 mg 04/14/18 22:00 04/16/18 21:15 Lipitor - PO 40 mg HS J[facility]ESH Administration Chlorhexidine Gluconate 1 applic 04/08/18 22:00 04/16/18 21:15 Hibiclens For Decolonization - TP 1 applic HS J[facility] Administration Docusate Sodium 300 mg 04/11/18 22:00 04/16/18 21:11 Colace - PO 300 mg HS J[facility] Administration Furosemide 80 mg 04/12/18 18:00 04/17/18 12:26 Lasix Injection - IVPUSH 80 mg TID@0600,1200,1800 J[facility] Administration Heparin Sodium (Porcine) 5,000 unit 04/16/18 22:00 04/17/18 05:54 Heparin - SQ 5,000 unit TID J[facility] Administration Hydralazine HCl 100 mg 04/14/18 10:00 04/17/18 09:28 Apresoline - PO 100 mg BID J[facility] Administration Insulin Aspart 1 vial 04/08/18 22:00 04/17/18 12:26 Novolog Vial Sliding Scale - SQ 2 units ACHS J[facility] Administration Protocol Isosorbide Dinitrate 20 mg 04/12/18 11:00 04/17/18 09:28 Isordil - PO 20 mg BIDISORDIL J[facility] Administration Metoprolol Tartrate 100 mg 04/14/18 10:00 04/17/18 09:32 Lopressor - PO 100 mg BID [facility] Administration Metoprolol Tartrate 5 mg 04/17/18 12:00 Lopressor Injection - IVPUSH Q4H PRN HYPERTENSION Nystatin 1 applic 04/11/18 19:15 04/17/18 09:35 Nystop Powder - TP 1 applic DAILY [facility] Administration Senna 1 tab 04/11/18 22:00 04/16/18 21:10 Senna - PO 1 tab HS [facility] Administration Timolol Maleate 1 drop 04/13/18 22:00 04/17/18 09:34 Timoptic 0.5% OU 1 drop BID J[facility] Administration ASSESSMENT/PLAN: PULMONARY #Acute hypoxic respiratory failure -due to volume overload -HFNC, 80% Fio2 -O2 to keep SpO2 >90% -Cont. IV Lasix 80mg IV TID -1x Spironloactone 25mg -Strict I/o's -Daily weight -on home O2 -duonebs -IV abx Completed -AM cxr CV #Rapid A-fib -Cont. Metoprolol 100 mg BID -Hydralazine 100 BID -Isosorbide 20 BID -IV lopressor 5mg PRN for HR >120 -Not on AG due to recent GI bleed -ECHO 04/10: Severe LV, RV dysfunction. EF 44%. -FU cardio reccs -Hold ASHLEIGH/ARB secondary to elevated creatinine -CKD -worsening renal function, cr 2.8 -may need HD -avoid nephrotoxins -kidneys are echogenic on ultrasound -fu nephro reccs ENDOCRINE -ISS -BGM FEN No Iv fluids due to volume overload monitor lytes diabetic diet DVT hep sq Visit type - Emergency Visit Emergency Visit: Yes ED Registration Date: 04/08/18 Care time: The patient presented to the Emergency Department on the above date and was hospitalized for further evaluation of their emergent condition. - New Patient This patient is new to me today: No - Critical Care Critical Care patient: Yes Total Critical Care Time (in minutes): 40 Critical Care Statement: The care of this patient involved high complexity decision making to prevent further life threatening deterioration of the patient 's condition and/or to evaluate & treat vital organ system(s) failure or risk of failure.
--- NOTE | 2018-04-17 14:16 | PN ---
Progress Note, Physician History of Present Illness: Pt seen and examined at bedside. She feels that her breathing is starting to improve however she remains on oxygen. - Current Medication List Current Medications: Active Medications Acetaminophen (Tylenol -) 650 mg PO Q6H PRN PRN Reason: PAIN LEVEL 4 - 6 Last Admin: 04/16/18 23:10 Dose: 650 mg Albuterol/Ipratropium (Duoneb -) 1 amp NEB RQID [facility] Last Admin: 04/17/18 11:00 Dose: 1 amp Atorvastatin Calcium (Lipitor -) 40 mg PO HS [facility] Last Admin: 04/16/18 21:15 Dose: 40 mg Chlorhexidine Gluconate (Hibiclens For Decolonization -) 1 applic TP HS [facility] Last Admin: 04/16/18 21:15 Dose: 1 applic Docusate Sodium (Colace -) 300 mg PO HS [facility] Last Admin: 04/16/18 21:11 Dose: 300 mg Furosemide (Lasix Injection -) 80 mg IVPUSH TID@0600,1200,1800 [facility] Last Admin: 04/17/18 12:26 Dose: 80 mg Heparin Sodium (Porcine) (Heparin -) 5,000 unit SQ TID [facility] Last Admin: 04/17/18 05:54 Dose: 5,000 unit Hydralazine HCl (Apresoline -) 100 mg PO BID [facility] Last Admin: 04/17/18 09:28 Dose: 100 mg Insulin Aspart (Novolog Vial Sliding Scale -) 1 vial SQ ACHS [facility]; Protocol Last Admin: 04/17/18 12:26 Dose: 2 units Isosorbide Dinitrate (Isordil -) 20 mg PO BIDISORDIL [facility] Last Admin: 04/17/18 09:28 Dose: 20 mg Metoprolol Tartrate (Lopressor -) 100 mg PO BID [facility] Last Admin: 04/17/18 09:32 Dose: 100 mg Metoprolol Tartrate (Lopressor Injection -) 5 mg IVPUSH Q4H PRN PRN Reason: HYPERTENSION Nystatin (Nystop Powder -) 1 applic TP DAILY [facility] Last Admin: 04/17/18 09:35 Dose: 1 applic Senna (Senna -) 1 tab PO HS [facility] Last Admin: 04/16/18 21:10 Dose: 1 tab Timolol Maleate (Timoptic 0.5%) 1 drop OU BID [facility] Last Admin: 04/17/18 09:34 Dose: 1 drop - Objective Vital Signs: Vital Signs Temperature 98 F 04/17/18 10:00 Pulse Rate 120 H 04/17/18 13:00 Respiratory Rate 20 04/17/18 13:00 Blood Pressure 104/70 04/17/18 13:00 O2 Sat by Pulse Oximetry (%) 91 L 04/17/18 13:35 Constitutional: Yes: Calm Eyes: Yes: Conjunctiva Clear HENT: Yes: Atraumatic Neck: Yes: Supple Cardiovascular: Yes: S1, S2 Respiratory: Yes: On Nasal O2 Gastrointestinal: Yes: Soft Genitourinary: Yes: [place] Present Edema: Yes Edema: LLE: 2+, RLE: 2+ Neurological: Yes: Oriented Psychiatric: Yes: Oriented Labs: CBC, BMP 04/17/18 05:30 04/17/18 05:30 INR, PTT INR 1.04 (0.82-1.09) 04/08/18 15:40 Problem List - Problems (1) Acute respiratory failure with hypoxia Code(s): J96.01 - ACUTE RESPIRATORY FAILURE WITH HYPOXIA (2) CHF (congestive heart failure) Code(s): I50.9 - HEART FAILURE, UNSPECIFIED (3) CKD (chronic kidney disease) Code(s): N18.9 - CHRONIC KIDNEY DISEASE, UNSPECIFIED Qualifiers: Chronic kidney disease stage: unspecified stage Qualified Code(s): N18.9 - Chronic kidney disease, unspecified (4) Renal insufficiency Code(s): N28.9 - DISORDER OF KIDNEY AND URETER, UNSPECIFIED Assessment/Plan Current Medications Generic Name Dose Route Start Last Admin Trade Name Rosalba PRN Reason Stop Dose Admin Acetaminophen 650 mg 04/16/18 22:38 04/16/18 23:10 Tylenol - PO 650 mg Q6H PRN Administration PAIN LEVEL 4 - 6 Albuterol/Ipratropium 1 amp 04/16/18 05:15 04/17/18 11:00 Duoneb - NEB 1 amp RQID JIGNESH Administration Atorvastatin Calcium 40 mg 04/14/18 22:00 04/16/18 21:15 Lipitor - PO 40 mg HS JIGNESH Administration Chlorhexidine Gluconate 1 applic 04/08/18 22:00 04/16/18 21:15 Hibiclens For Decolonization - TP 1 applic HS JIGNESH Administration Docusate Sodium 300 mg 04/11/18 22:00 04/16/18 21:11 Colace - PO 300 mg HS JIGNESH Administration Furosemide 80 mg 04/12/18 18:00 04/17/18 12:26 Lasix Injection - IVPUSH 80 mg TID@0600,1200,1800 JIGNESH Administration Heparin Sodium (Porcine) 5,000 unit 04/16/18 22:00 04/17/18 05:54 Heparin - SQ 5,000 unit TID JIGNESH Administration Hydralazine HCl 100 mg 04/14/18 10:00 04/17/18 09:28 Apresoline - PO 100 mg BID JIGNESH Administration Insulin Aspart 1 vial 04/08/18 22:00 04/17/18 12:26 Novolog Vial Sliding Scale - SQ 2 units ACHS JIGNESH Administration Protocol Isosorbide Dinitrate 20 mg 04/12/18 11:00 04/17/18 09:28 Isordil - PO 20 mg BIDISORDIL JIGNESH Administration Metoprolol Tartrate 100 mg 04/14/18 10:00 04/17/18 09:32 Lopressor - PO 100 mg BID JIGNESH Administration Metoprolol Tartrate 5 mg 04/17/18 12:00 Lopressor Injection - IVPUSH Q4H PRN HYPERTENSION Nystatin 1 applic 04/11/18 19:15 04/17/18 09:35 Nystop Powder - TP 1 applic DAILY JIGNESH Administration Senna 1 tab 04/11/18 22:00 04/16/18 21:10 Senna - PO 1 tab HS JIGNESH Administration Timolol Maleate 1 drop 04/13/18 22:00 04/17/18 09:34 Timoptic 0.5% OU 1 drop BID JIGNESH Administration Impression 1. CKD 2. CHF 3. resp failure requiring bipap 4. obesity 5. fluid overload 6. COPD 7. rapid a-fib Plan - cont with diuretics - not much change with cxr - discussed possibility of HD with pt - monitor renal function - monitor urine output - check daily weights - bipap as needed - monitor pulse ox - cardiology follow up Dr Bach
--- NOTE | 2018-04-17 17:07 | PN ---
Progress Note, Physician Chief Complaint: AWAKE ALERT FAMILY BEDSIDE ON 02 SUPPORT UNDERSTAND SHE NEEDS HEMODIALYSIS - Current Medication List Current Medications: Active Medications Acetaminophen (Tylenol -) 650 mg PO Q6H PRN PRN Reason: PAIN LEVEL 4 - 6 Last Admin: 04/16/18 23:10 Dose: 650 mg Albuterol/Ipratropium (Duoneb -) 1 amp NEB RQID [facility] Last Admin: 04/17/18 15:57 Dose: 1 amp Atorvastatin Calcium (Lipitor -) 40 mg PO [facility] Last Admin: 04/16/18 21:15 Dose: 40 mg Chlorhexidine Gluconate (Hibiclens For Decolonization -) 1 applic TP HS [facility] Last Admin: 04/16/18 21:15 Dose: 1 applic Docusate Sodium (Colace -) 300 mg PO HS [facility] Last Admin: 04/16/18 21:11 Dose: 300 mg Furosemide (Lasix Injection -) 80 mg IVPUSH TID@0600,1200,1800 [facility] Last Admin: 04/17/18 17:02 Dose: 80 mg Heparin Sodium (Porcine) (Heparin -) 5,000 unit SQ TID [facility] Last Admin: 04/17/18 16:47 Dose: 5,000 unit Hydralazine HCl (Apresoline -) 100 mg PO BID [facility] Last Admin: 04/17/18 09:28 Dose: 100 mg Insulin Aspart (Novolog Vial Sliding Scale -) 1 vial SQ ACHS [facility]; Protocol Last Admin: 04/17/18 16:47 Dose: Not Given Isosorbide Dinitrate (Isordil -) 20 mg PO BIDISORDIL [facility] Last Admin: 04/17/18 17:02 Dose: 20 mg Metoprolol Tartrate (Lopressor -) 100 mg PO BID [facility] Last Admin: 04/17/18 09:32 Dose: 100 mg Metoprolol Tartrate (Lopressor Injection -) 5 mg IVPUSH Q4H PRN PRN Reason: HYPERTENSION Nystatin (Nystop Powder -) 1 applic TP DAILY [facility] Last Admin: 04/17/18 09:35 Dose: 1 applic Senna (Senna -) 1 tab PO HS [facility] Last Admin: 04/16/18 21:10 Dose: 1 tab Timolol Maleate (Timoptic 0.5%) 1 drop OU BID [facility] Last Admin: 04/17/18 09:34 Dose: 1 drop - Objective Vital Signs: Vital Signs Temperature 98 F 04/17/18 10:00 Pulse Rate 102 H 04/17/18 16:00 Respiratory Rate 18 04/17/18 16:00 Blood Pressure 115/83 04/17/18 16:00 O2 Sat by Pulse Oximetry (%) 90 L 04/17/18 15:56 Constitutional: Yes: Mild Distress Eyes: Yes: WNL HENT: Yes: WNL Neck: Yes: WNL Cardiovascular: Yes: WNL Respiratory: Yes: Diminished, On Nasal O2 Gastrointestinal: Yes: WNL Genitourinary: Yes: WNL Musculoskeletal: Yes: WNL Extremities: Yes: WNL Edema: Yes Edema: LLE: 2+, RLE: 2+ Peripheral Pulses WNL: Yes Integumentary: Yes: WNL Wound/Incision: Yes: Clean/Dry Neurological: Yes: WNL ...Motor Strength: LLE, RLE Psychiatric: Yes: WNL Labs: CBC, BMP 04/17/18 05:30 04/17/18 05:30 INR, PTT INR 1.04 (0.82-1.09) 04/08/18 15:40 Problem List - Problems (1) Acute exacerbation of COPD with asthma Code(s): J44.1 - CHRONIC OBSTRUCTIVE PULMONARY DISEASE W (ACUTE) EXACERBATION; J45.901 - UNSPECIFIED ASTHMA WITH (ACUTE) EXACERBATION (2) Acute on chronic systolic and diastolic heart failure, NYHA class 4 Code(s): I50.43 - ACUTE ON CHRONIC COMBINED SYSTOLIC AND DIASTOLIC HRT FAIL (3) Acute respiratory failure with hypoxia Code(s): J96.01 - ACUTE RESPIRATORY FAILURE WITH HYPOXIA (4) Diabetes Code(s): E11.9 - TYPE 2 DIABETES MELLITUS WITHOUT COMPLICATIONS (5) HTN (hypertension) Code(s): I10 - ESSENTIAL (PRIMARY) HYPERTENSION Qualifiers: Hypertension type: unspecified Qualified Code(s): I10 - Essential (primary ) hypertension (6) Hyperlipidemia Code(s): E78.5 - HYPERLIPIDEMIA, UNSPECIFIED (7) Morbid obesity Code(s): E66.01 - MORBID (SEVERE) OBESITY DUE TO EXCESS CALORIES (8) Rapid atrial fibrillation Code(s): I48.91 - UNSPECIFIED ATRIAL FIBRILLATION (9) Sleep apnea Code(s): G47.30 - SLEEP APNEA, UNSPECIFIED Assessment/Plan HD PER RENAL STARTING TOMORROW VASC FOR ACCESS SHILEY DVT PROPHYLAXIS PT EVAL SSI/BGM CHECKS DIETARY CONSULT
[2018-04-17] MEDS ORDERED: DEXTROSE 5%-WATER - 50 ML IVPB ONE (21:11)
[2018-04-17] MEDS ORDERED: PIPERACILLIN/TAZOBACTAM 2.25 GM VIAL IVPB ONE (21:11)
[2018-04-17] MEDS: PIPERACILLIN/TAZOB 2.25 GM 2.25 GM in DEXTROSE 5%-WATER - 50 ML IVPB SCH (21:42)
[2018-04-17] MEDS: ATORVASTATIN CA 40 MG TABLET (FP) PO SCH (21:43)
[2018-04-17] MEDS: DOCUSATE SODIUM 100 MG CAPSULE (FP) PO SCH (21:43)
[2018-04-17] MEDS: SENNOSIDES 8.6MG TABLET (FP) PO SCH (21:44)
[2018-04-17] MEDS: CHLORHEXIDINE GLUCONATE 4% CLEANSER FOR DECOLONIZATION TP SCH (21:45)
[2018-04-17] MEDS: ACETAMINOPHEN 325 MG TABLET (FP) PO PRN (22:47)
[2018-04-18] MEDS ORDERED: PIPERACILLIN/TAZOBACTAM 2.25 GM VIAL IVPB ONE ×3 (02:36→17:22)
[2018-04-18] MEDS ORDERED: DEXTROSE 5%-WATER - 50 ML IVPB ONE ×3 (02:36→17:22)
[2018-04-18] MEDS: PIPERACILLIN/TAZOB 2.25 GM 2.25 GM in DEXTROSE 5%-WATER - 50 ML IVPB SCH ×3 (02:38→17:26)
[2018-04-18] MEDS: FUROSEMIDE 40 MG/4 ML INJECTABLE VIAL IVPUSH SCH ×3 (05:37→17:36)
[2018-04-18] MEDS: HEPARIN NA (PORCINE) 5,000 UNITS/ML 1ML VIAL SQ SCH ×2 (05:37→14:01)
[2018-04-18 06:15] LABS: HEMOGLOBIN 12.1 GM/dL (10.7-15.3); MCH 30.9 pg (25.7-33.7); MCHC 32.6 g/dl (32.0-36.0); MEAN CELL VOLUME 94.7 fl (80-96); PLATELET COUNT 226 K/MM3 (134-434); RBC 3.91 M/mm3 (3.60-5.2); RDW 17.5 % (11.6-15.6); WHITE BLOOD COUNT 10.1 K/mm3 (4.0-10.0)
[2018-04-18] MEDS: INSULIN SLIDING SCALE (NOVOLOG) 1 VIAL SQ SCH ×3 (06:43→17:25)
[2018-04-18 06:47] LABS: CHLORIDE 97 mmol/L (98-107); POTASSIUM 4.8 mmol/L (3.5-5.1); SODIUM 142 mmol/L (136-145)
[2018-04-18 06:54] LABS: ALBUMIN 2.6 g/dl (3.4-5.0); ALK PHOS 73 U/L (45-117); ANION GAP 16 (8-16); BILIRUBIN,TOTAL 0.5 mg/dL (0.2-1.0); CALCIUM 8.3 mg/dL (8.5-10.1); CO2 29 mmol/L (21-32); CREATININE 3.1 mg/dL (0.55-1.02); GLUCOSE,RANDOM 165 mg/dL (74-106); MAGNESIUM 2.7 mg/dL (1.8-2.4); PHOSPHOROUS 6.6 mg/dL (2.5-4.9); SGOT/AST 22 U/L (15-37); SGPT/ALT 19 U/L (12-78); TOT PROT 6.1 g/dl (6.4-8.2)
[2018-04-18 07:38] LABS: BLOOD UREA NITROGEN 131 mg/dL (7-18)
[2018-04-18] MEDS: ALBUTEROL SO4 2.5/IPRATROPIUM 0.5 INH SOL 3 ML VIAL.NEB. NEB SCH ×3 (08:00→16:30)
--- NOTE | 2018-04-18 09:45 | PN ---
Progress Note, Physician Chief Complaint: Pt A&Ox3;denies chest pain or dyspnea; no palpitations. c/o constipation; eats cereal and protein shakes, but few fruits or vegetables. History of Present Illness: 72 yr old black woman PMH COPD, HTN, AF, morbid obesity,CHF, admitted from the [facility] after a recent lengthy stay at [facility]. She is currently admitted to our ICU with acute on chronic presumed diastolic CHF (later found to have severely reduced LVEF), uncontrolled HTN and rapid AF. As per patient and daughter Karlene, she was admitted to [facility] about 6 weeks ago with hematemesis, BRBPR requiring transfusions (taken off Plavix), ARF requiring temporary HD and CHF. As per daughter, no source of bleeding was found. - Current Medication List Current Medications: Active Medications Acetaminophen (Tylenol -) 650 mg PO Q6H PRN PRN Reason: PAIN LEVEL 4 - 6 Last Admin: 04/17/18 22:47 Dose: 650 mg Albuterol/Ipratropium (Duoneb -) 1 amp NEB RQID [facility] Last Admin: 04/17/18 20:39 Dose: 1 amp Atorvastatin Calcium (Lipitor -) 40 mg PO HS [facility] Last Admin: 04/17/18 21:43 Dose: 40 mg Chlorhexidine Gluconate (Hibiclens For Decolonization -) 1 applic TP [facility] Last Admin: 04/17/18 21:45 Dose: 1 applic Docusate Sodium (Colace -) 300 mg PO HS [facility] Last Admin: 04/17/18 21:43 Dose: 300 mg Furosemide (Lasix Injection -) 80 mg IVPUSH TID@0600,1200,1800 [facility] Last Admin: 04/18/18 05:37 Dose: 80 mg Heparin Sodium (Porcine) (Heparin -) 5,000 unit SQ TID [facility] Last Admin: 04/18/18 05:37 Dose: 5,000 unit Hydralazine HCl (Apresoline -) 100 mg PO BID [facility] Last Admin: 04/17/18 21:44 Dose: 100 mg Piperacillin Sod/Tazobactam (Sod 2.25 gm/ Dextrose) 50 mls @ 100 mls/hr IVPB Q8H-IV [facility]; Protocol Last Admin: 04/18/18 02:38 Dose: 100 mls/hr Insulin Aspart (Novolog Vial Sliding Scale -) 1 vial SQ ACHS [facility]; Protocol Last Admin: 04/18/18 06:43 Dose: 2 units Isosorbide Dinitrate (Isordil -) 20 mg PO BIDISORDIL [facility] Last Admin: 04/17/18 17:02 Dose: 20 mg Metoprolol Tartrate (Lopressor -) 100 mg PO BID [facility] Last Admin: 04/17/18 21:44 Dose: 100 mg Metoprolol Tartrate (Lopressor Injection -) 5 mg IVPUSH Q4H PRN PRN Reason: HYPERTENSION Nystatin (Nystop Powder -) 1 applic TP DAILY [facility] Last Admin: 04/17/18 09:35 Dose: 1 applic Senna (Senna -) 1 tab PO HS [facility] Last Admin: 04/17/18 21:44 Dose: 1 tab Timolol Maleate (Timoptic 0.5%) 1 drop OU BID [facility] Last Admin: 04/17/18 21:51 Dose: 1 drop - Objective Vital Signs: Vital Signs Temperature 97.6 F 04/18/18 06:00 Pulse Rate 110 H 04/18/18 08:00 Respiratory Rate 18 04/18/18 08:00 Blood Pressure 100/94 04/18/18 08:00 O2 Sat by Pulse Oximetry (%) 94 L 04/18/18 07:00 Labs: CBC, BMP 04/18/18 05:30 04/18/18 05:30 INR, PTT INR 1.04 (0.82-1.09) 04/08/18 15:40 Problem List - Problems (1) Acute on chronic systolic and diastolic heart failure, NYHA class 4 Assessment/Plan: Severely reduced LVEF on ECHO. Metoprolol will be changed to carvedilol. Unable to start ACEI, ARB, or RAAS due to renal dysfunctio (though pt responded well to one alexis of aldactone for diuresis). Continue hydralazine + isordil (hydrlazine being held due to low-NL BP pre- diaylsis. The combination is beneficial with poor LVEF. F/u BUN/Cr, electrolytes, daily wt, Is and Os. Code(s): I50.43 - ACUTE ON CHRONIC COMBINED SYSTOLIC AND DIASTOLIC HRT FAIL (2) Acute respiratory failure with hypoxia Assessment/Plan: now off BiPap; on Rapid flow Code(s): J96.01 - ACUTE RESPIRATORY FAILURE WITH HYPOXIA (3) HTN (hypertension) Code(s): I10 - ESSENTIAL (PRIMARY) HYPERTENSION Qualifiers: Hypertension type: unspecified Qualified Code(s): I10 - Essential (primary ) hypertension (4) Diabetes Code(s): E11.9 - TYPE 2 DIABETES MELLITUS WITHOUT COMPLICATIONS (5) Morbid obesity Assessment/Plan: discussed need to change diet, lose weight. Nutirtional counseling would be of benefit. Code(s): E66.01 - MORBID (SEVERE) OBESITY DUE TO EXCESS CALORIES (6) Hyperlipidemia Assessment/Plan: LDL cholesterol 171 mg/dL; started atorvastatin 40 mg daily. Code(s): E78.5 - HYPERLIPIDEMIA, UNSPECIFIED (7) Glaucoma Assessment/Plan: on TImoptic Code(s): H40.9 - UNSPECIFIED GLAUCOMA (8) Atrial fibrillation Assessment/Plan: on metoprolol 100 mg bid for HR control and systolic LV dysfunction. As discussed with medical team, pt is for hemodialysis. Due to low BP, hydralazine will be held. Metoprolol will be changed to carvedilol; if HR is not well-controlled with optimal dosing, will have to consider starting digoxin. Systemic anticoaguation: held after GI bleed (treated at [facility] a few months ago). Agree with obtaining records of GI procedures done there, and deciding whether pt can be restarted on anticoagulants. Code(s): I48.91 - UNSPECIFIED ATRIAL FIBRILLATION Assessment/Plan ccu time spent examining pt, discussing with team, formulating plan: 45 minutes.
[2018-04-18] MEDS: TIMOLOL 0.5% OPHTHALMIC SOL 5 ML BOTTLE OU SCH (10:13)
[2018-04-18] MEDS: METOPROLOL TARTRATE 50 MG TABLET (FP) PO SCH (10:13)
[2018-04-18] MEDS: ACETAMINOPHEN 325 MG TABLET (FP) PO PRN (10:14)
[2018-04-18] MEDS: ISOSORBIDE DINITRATE 20 MG TABLET (FP) PO SCH ×2 (10:15→17:37)
[2018-04-18] MEDS: hydrALAZINE HCL 50 MG TABLET (FP) PO SCH (10:15)
[2018-04-18] MEDS: NYSTATIN POWDER 100,000 UNITS/GM - 15 GM TOPICAL POWDER TP SCH (10:15)
[2018-04-18] MEDS ORDERED: CARVEDILOL 3.125 MG TABLET (FP) PO SCH (11:15)
--- NOTE | 2018-04-18 13:23 | PN ---
Progress Note, Physician History of Present Illness: Pt seen and examined at bedside. She is awake and alert. She does not feel that the breathing has changed much. - Current Medication List Current Medications: Active Medications Acetaminophen (Tylenol -) 650 mg PO Q6H PRN PRN Reason: PAIN LEVEL 4 - 6 Last Admin: 04/18/18 10:14 Dose: 650 mg Albuterol/Ipratropium (Duoneb -) 1 amp NEB RQID [facility] Last Admin: 04/18/18 12:40 Dose: 1 amp Atorvastatin Calcium (Lipitor -) 40 mg PO HS [facility] Last Admin: 04/17/18 21:43 Dose: 40 mg Carvedilol (Coreg -) 3.125 mg PO BID [facility] Last Admin: 04/18/18 11:36 Dose: 3.125 mg Chlorhexidine Gluconate (Hibiclens For Decolonization -) 1 applic TP HS [facility] Last Admin: 04/17/18 21:45 Dose: 1 applic Docusate Sodium (Colace -) 300 mg PO HS [facility] Last Admin: 04/17/18 21:43 Dose: 300 mg Furosemide (Lasix Injection -) 80 mg IVPUSH TID@0600,1200,1800 [facility] Last Admin: 04/18/18 11:42 Dose: 80 mg Heparin Sodium (Porcine) (Heparin -) 5,000 unit SQ TID [facility] Last Admin: 04/18/18 05:37 Dose: 5,000 unit Piperacillin Sod/Tazobactam (Sod 2.25 gm/ Dextrose) 50 mls @ 100 mls/hr IVPB Q8H-IV [facility]; Protocol Last Admin: 04/18/18 10:12 Dose: 100 mls/hr Insulin Aspart (Novolog Vial Sliding Scale -) 1 vial SQ ACHS [facility]; Protocol Last Admin: 04/18/18 11:43 Dose: 4 units Isosorbide Dinitrate (Isordil -) 20 mg PO BIDISORDIL [facility] Last Admin: 04/18/18 10:15 Dose: 20 mg Metoprolol Tartrate (Lopressor Injection -) 5 mg IVPUSH Q4H PRN PRN Reason: HYPERTENSION Nystatin (Nystop Powder -) 1 applic TP DAILY [facility] Last Admin: 04/18/18 10:15 Dose: 1 applic Senna (Senna -) 1 tab PO HS [facility] Last Admin: 04/17/18 21:44 Dose: 1 tab Timolol Maleate (Timoptic 0.5%) 1 drop OU BID [facility] Last Admin: 04/18/18 10:13 Dose: 1 drop - Objective Vital Signs: Vital Signs Temperature 98 F 04/18/18 10:00 Pulse Rate 112 H 04/18/18 12:00 Respiratory Rate 04/18/18 12:00 Blood Pressure 86/56 04/18/18 12:00 O2 Sat by Pulse Oximetry (%) 93 L 04/18/18 10:41 Constitutional: Yes: Calm Eyes: Yes: Conjunctiva Clear HENT: Yes: Atraumatic Neck: Yes: Supple Cardiovascular: Yes: S1, S2 Respiratory: Yes: On Nasal O2 Gastrointestinal: Yes: Soft, Abdomen, Obese Genitourinary: Yes: [place] Present Musculoskeletal: Yes: Muscle Weakness Edema: Yes Edema: LLE: 2+, RLE: 2+ Neurological: Yes: Oriented Psychiatric: Yes: Oriented Labs: CBC, BMP 04/18/18 05:30 04/18/18 05:30 INR, PTT INR 1.04 (0.82-1.09) 04/08/18 15:40 - ....Imaging Chest X-ray: Report Reviewed Problem List - Problems (1) Acute respiratory failure with hypoxia Code(s): J96.01 - ACUTE RESPIRATORY FAILURE WITH HYPOXIA (2) CHF (congestive heart failure) Code(s): I50.9 - HEART FAILURE, UNSPECIFIED (3) CKD (chronic kidney disease) Code(s): N18.9 - CHRONIC KIDNEY DISEASE, UNSPECIFIED Qualifiers: Chronic kidney disease stage: unspecified stage Qualified Code(s): N18.9 - Chronic kidney disease, unspecified (4) Renal insufficiency Code(s): N28.9 - DISORDER OF KIDNEY AND URETER, UNSPECIFIED Assessment/Plan Current Medications Generic Name Dose Route Start Last Admin Trade Name Freq PRN Reason Stop Dose Admin Acetaminophen 650 mg 04/16/18 22:38 04/18/18 10:14 Tylenol - PO 650 mg Q6H PRN Administration PAIN LEVEL 4 - 6 Albuterol/Ipratropium 1 amp 04/16/18 05:15 04/18/18 12:40 Duoneb - NEB 1 amp RQID [facility] Administration Atorvastatin Calcium 40 mg 04/14/18 22:00 04/17/18 21:43 Lipitor - PO 40 mg HS [facility] Administration Carvedilol 3.125 mg 04/18/18 11:15 04/18/18 11:36 Coreg - PO 3.125 mg BID [facility] Administration Chlorhexidine Gluconate 1 applic 04/08/18 22:00 04/17/18 21:45 Hibiclens For Decolonization - TP 1 applic HS [facility] Administration Docusate Sodium 300 mg 04/11/18 22:00 04/17/18 21:43 Colace - PO 300 mg HS [facility] Administration Furosemide 80 mg 04/12/18 18:00 04/18/18 11:42 Lasix Injection - IVPUSH 80 mg TID@0600,1200,1800 [facility] Administration Heparin Sodium (Porcine) 5,000 unit 04/16/18 22:00 04/18/18 05:37 Heparin - SQ 5,000 unit TID [facility] Administration Piperacillin Sod/Tazobactam 50 mls @ 100 mls/hr 04/17/18 19:15 04/18/18 10:12 Sod 2.25 gm/ Dextrose IVPB 100 mls/hr Q8H-IV [facility] Administration Protocol Insulin Aspart 1 vial 04/08/18 22:00 04/18/18 11:43 Novolog Vial Sliding Scale - SQ 4 units ACHS [facility] Administration Protocol Isosorbide Dinitrate 20 mg 04/12/18 11:00 04/18/18 10:15 Isordil - PO 20 mg BIDISORDIL [facility] Administration Metoprolol Tartrate 5 mg 04/17/18 12:00 Lopressor Injection - IVPUSH Q4H PRN HYPERTENSION Nystatin 1 applic 04/11/18 19:15 04/18/18 10:15 Nystop Powder - TP 1 applic DAILY [facility] Administration Senna 1 tab 04/11/18 22:00 04/17/18 21:44 Senna - PO 1 tab HS [facility] Administration Timolol Maleate 1 drop 04/13/18 22:00 04/18/18 10:13 Timoptic 0.5% OU 1 drop BID [facility] Administration Impression 1. CKD 2. CHF 3. resp failure requiring bipap 4. obesity 5. fluid overload 6. COPD 7. rapid a-fib 8. hypotension Plan - bp meds held - monitor urine output - discussed with ICU team - discussed with cardio - renal function continues to worsen - discussed HD with pt and with cardio, will likely start tomorrow for UF - check daily weights - bipap as needed - monitor pulse ox - cardiology follow up Dr Bach
--- NOTE | 2018-04-18 13:58 | PN ---
Teaching Attending Note Name of Resident: Lily Del Rio ATTENDING PHYSICIAN STATEMENT I saw and evaluated the patient. I reviewed the resident's note and discussed the case with the resident. I agree with the resident's findings and plan as documented. SUBJECTIVE: Patient seen and examined in the ICU. Remains on HFOT with 80% FiO2 / 50 liters. Reports breathing is slightly better today. Noted marginal BP. OBJECTIVE: Intake & Output 04/15/18 04/16/18 04/17/18 04/18/18 23:59 23:59 23:59 23:59 Intake Total 607 006 5510 110 Output Total 1000 750 350 25 Balance -340 200 660 85 Weight 291 lb 8 oz 291 lb 12.8 oz 285 lb 14.4 oz Last Vital Signs Temp Pulse Resp BP Pulse Ox 98 F 112 H 18 86/56 93 L 04/18/18 10:00 04/18/18 12:00 04/18/18 12:00 04/18/18 12:00 04/18/18 10:41 Active Medications Acetaminophen (Tylenol -) 650 mg PO Q6H PRN PRN Reason: PAIN LEVEL 4 - 6 Last Admin: 04/18/18 10:14 Dose: 650 mg Albuterol/Ipratropium (Duoneb -) 1 amp NEB RQID [facility] Last Admin: 04/18/18 12:40 Dose: 1 amp Atorvastatin Calcium (Lipitor -) 40 mg PO [facility] Last Admin: 04/17/18 21:43 Dose: 40 mg Carvedilol (Coreg -) 3.125 mg PO BID [facility] Last Admin: 04/18/18 11:36 Dose: 3.125 mg Chlorhexidine Gluconate (Hibiclens For Decolonization -) 1 applic TP [facility] Last Admin: 04/17/18 21:45 Dose: 1 applic Docusate Sodium (Colace -) 300 mg PO [facility] Last Admin: 04/17/18 21:43 Dose: 300 mg Furosemide (Lasix Injection -) 80 mg IVPUSH TID@0600,1200,1800 [facility] Last Admin: 04/18/18 11:42 Dose: 80 mg Heparin Sodium (Porcine) (Heparin -) 5,000 unit SQ TID [facility] Last Admin: 04/18/18 05:37 Dose: 5,000 unit Piperacillin Sod/Tazobactam (Sod 2.25 gm/ Dextrose) 50 mls @ 100 mls/hr IVPB Q8H-IV [facility]; Protocol Last Admin: 04/18/18 10:12 Dose: 100 mls/hr Insulin Aspart (Novolog Vial Sliding Scale -) 1 vial SQ ACHS [facility]; Protocol Last Admin: 04/18/18 11:43 Dose: 4 units Isosorbide Dinitrate (Isordil -) 20 mg PO BIDISORDIL [facility] Last Admin: 04/18/18 10:15 Dose: 20 mg Metoprolol Tartrate (Lopressor Injection -) 5 mg IVPUSH Q4H PRN PRN Reason: HYPERTENSION Nystatin (Nystop Powder -) 1 applic TP DAILY [facility] Last Admin: 04/18/18 10:15 Dose: 1 applic Senna (Senna -) 1 tab PO HS [facility] Last Admin: 04/17/18 21:44 Dose: 1 tab Timolol Maleate (Timoptic 0.5%) 1 drop OU BID [facility] Last Admin: 04/18/18 10:13 Dose: 1 drop Gen: Mildly tachypneic at rest Heart: RRR Lung: scattered rhonchi Abd: soft, nontender Ext: + edema Laboratory Results - last 24 hr 04/17/18 04/18/18 04/18/18 16:42 05:30 05:30 WBC 10.1 H RBC 3.91 Hgb 12.1 Hct 37.0 MCV 94.7 MCH 30.9 MCHC 32.6 RDW 17.5 H Plt Count 226 MPV 11.0 Sodium 142 Potassium 4.8 Chloride 97 L Carbon Dioxide 29 Anion Gap 16 BUN 131 H* Creatinine 3.1 H Creat Clearance w eGFR 14.73 POC Glucometer 113.47356 Random Glucose 165 H Calcium 8.3 L Phosphorus 6.6 H Magnesium 2.7 H Total Bilirubin 0.5 AST 22 ALT 19 Alkaline Phosphatase 73 Total Protein 6.1 L Albumin 2.6 L ASSESSMENT AND PLAN: Acute Hypoxic Respiratory Failure Volume Overload Acute on Chronic Systolic Heart Failure CKD COPD Atrial Fibrillation h/o GI Bleed Severe LV Dysfunction - Hold hydralazine - continue lasix, aldactone - monitor urine output, creatinine - may need HD with ultrafiltration - monitor lytes - inhaled bronchodilators - O2 to keep SpO2 >90% - continue HFOT - NIPPV at night - Trial of Coreg BID - Metoprolol PRN - DVT prophylaxis - continue ICU monitoring - Noted ID consult called -> Repeat Blood cultures Dr Fitzgerald Critical care time spent in reviewing chart, evaluating patient and formulating plan 35 min Problem List - Problems (1) Sleep apnea Code(s): G47.30 - SLEEP APNEA, UNSPECIFIED (2) Acute respiratory failure with hypoxia Code(s): J96.01 - ACUTE RESPIRATORY FAILURE WITH HYPOXIA (3) CHF (congestive heart failure) Code(s): I50.9 - HEART FAILURE, UNSPECIFIED (4) CHF exacerbation Code(s): I50.9 - HEART FAILURE, UNSPECIFIED Qualifiers: Heart failure type: unspecified Qualified Code(s): I50.9 - Heart failure, unspecified (5) CKD (chronic kidney disease) Code(s): N18.9 - CHRONIC KIDNEY DISEASE, UNSPECIFIED Qualifiers: Chronic kidney disease stage: unspecified stage Qualified Code(s): N18.9 - Chronic kidney disease, unspecified (6) Rapid atrial fibrillation Code(s): I48.91 - UNSPECIFIED ATRIAL FIBRILLATION (7) Respiratory distress Code(s): R06.03 - ACUTE RESPIRATORY DISTRESS
[2018-04-18 13:59] VITALS: TEMP 98.2
--- NOTE | 2018-04-18 14:19 | PN ---
Physical Exam: SUBJECTIVE: Patient seen and examined. Offers no new complaints. says her breathing is unchanged since yesterday. Hypotensive HFNC 50 Liters, 80% FIO2 BiPap at night OBJECTIVE: Vital Signs Period Temp Pulse Resp BP Sys/Stratton Pulse Ox Last 24 Hr 97.6 F-98.2 F 100-120 13-20 86-117/34-94 90-95 GENERAL: On bipap, in no acute distress. EYES: extraocular movements intact, sclera anicteric, conjunctiva clear. ENT: oropharynx clear without exudates, moist mucous membranes. LUNGS: scattered rhonchi, decreased BS HEART: irregular rhythm ABDOMEN: Soft, nontender, nondistended, normoactive bowel sounds EXTREMITIES: 2+ pulses, warm, pedal edema b/l NEUROLOGICAL: Cranial nerves II through XII grossly intact. Laboratory Results - last 24 hr 04/17/18 04/18/18 04/18/18 16:42 05:30 05:30 WBC 10.1 H RBC 3.91 Hgb 12.1 Hct 37.0 MCV 94.7 MCH 30.9 MCHC 32.6 RDW 17.5 H Plt Count 226 MPV 11.0 Sodium 142 Potassium 4.8 Chloride 97 L Carbon Dioxide 29 Anion Gap 16 BUN 131 H* Creatinine 3.1 H Creat Clearance w eGFR 14.73 POC Glucometer 113.65326 Random Glucose 165 H Calcium 8.3 L Phosphorus 6.6 H Magnesium 2.7 H Total Bilirubin 0.5 AST 22 ALT 19 Alkaline Phosphatase 73 Total Protein 6.1 L Albumin 2.6 L Active Medications Generic Name Dose Route Start Last Admin Trade Name Jeanq PRN Reason Stop Dose Admin Acetaminophen 650 mg 04/16/18 22:38 04/18/18 10:14 Tylenol - PO 650 mg Q6H PRN Administration PAIN LEVEL 4 - 6 Albuterol/Ipratropium 1 amp 04/16/18 05:15 04/18/18 12:40 Duoneb - NEB 1 amp RQID [facility] Administration Atorvastatin Calcium 40 mg 04/14/18 22:00 04/17/18 21:43 Lipitor - PO 40 mg HS [facility] Administration Carvedilol 3.125 mg 04/18/18 11:15 04/18/18 11:36 Coreg - PO 3.125 mg BID [facility] Administration Chlorhexidine Gluconate 1 applic 04/08/18 22:00 04/17/18 21:45 Hibiclens For Decolonization - TP 1 applic HS [facility] Administration Docusate Sodium 300 mg 04/11/18 22:00 04/17/18 21:43 Colace - PO 300 mg HS [facility] Administration Furosemide 80 mg 04/12/18 18:00 04/18/18 11:42 Lasix Injection - IVPUSH 80 mg TID@0600,1200,1800 [facility] Administration Heparin Sodium (Porcine) 5,000 unit 04/16/18 22:00 04/18/18 14:01 Heparin - SQ 5,000 unit TID [facility] Administration Piperacillin Sod/Tazobactam 50 mls @ 100 mls/hr 04/17/18 19:15 04/18/18 10:12 Sod 2.25 gm/ Dextrose IVPB 100 mls/hr Q8H-IV [facility] Administration Protocol Insulin Aspart 1 vial 04/08/18 22:00 04/18/18 11:43 Novolog Vial Sliding Scale - SQ 4 units ACHS [facility] Administration Protocol Isosorbide Dinitrate 20 mg 04/12/18 11:00 04/18/18 10:15 Isordil - PO 20 mg BIDISORDIL [facility] Administration Metoprolol Tartrate 5 mg 04/17/18 12:00 Lopressor Injection - IVPUSH Q4H PRN HYPERTENSION Nystatin 1 applic 04/11/18 19:15 04/18/18 10:15 Nystop Powder - TP 1 applic DAILY [facility] Administration Senna 1 tab 04/11/18 22:00 04/17/18 21:44 Senna - PO 1 tab HS [facility] Administration Timolol Maleate 1 drop 04/13/18 22:00 04/18/18 10:13 Timoptic 0.5% OU 1 drop BID [facility] Administration ASSESSMENT/PLAN: PULMONARY #Acute hypoxic respiratory failure -due to volume overload -HFNC, 50 L 80% Fio2 -O2 to keep SpO2 >90% -Cont. IV Lasix 80mg IV TID -Strict I/o's -Daily weight -on home O2 -duonebs -CXR w no significant change CV #Rapid A-fib #Hypotensive -Trial of coreg 3.125 BID -Hold Metoprolol -Hold Hydralazine -Isosorbide 20 BID -IV lopressor 5mg PRN for HR >120 -Not on AG due to recent GI bleed -ECHO 6/11: Severe LV, RV dysfunction. EF 44%. -FU cardio reccs -Hold ASHLEIGH/ARB secondary to elevated creatinine -CKD -worsening renal function, cr 3.1 -may need HD -will first hold BP meds. HD if still not diuresing. -avoid nephrotoxins -kidneys are echogenic on ultrasound -fu nephro reccs ID -04/08 bcx positive for Gram + bacillus -ID on board -IV zosyn ENDOCRINE -ISS -BGM FEN No Iv fluids due to volume overload monitor lytes diabetic diet DVT hep sq Visit type - Emergency Visit Emergency Visit: Yes ED Registration Date: 04/08/18 Care time: The patient presented to the Emergency Department on the above date and was hospitalized for further evaluation of their emergent condition. - New Patient This patient is new to me today: No - Critical Care Critical Care patient: Yes Total Critical Care Time (in minutes): 40 Critical Care Statement: The care of this patient involved high complexity decision making to prevent further life threatening deterioration of the patient 's condition and/or to evaluate & treat vital organ system(s) failure or risk of failure.
--- NOTE | 2018-04-18 15:41 | PN ---
Progress Note, Physician Chief Complaint: ASLEEP COMFORTABLE NAD ON 02 SUPPORT - Current Medication List Current Medications: Active Medications Acetaminophen (Tylenol -) 650 mg PO Q6H PRN PRN Reason: PAIN LEVEL 4 - 6 Last Admin: 04/18/18 10:14 Dose: 650 mg Albuterol/Ipratropium (Duoneb -) 1 amp NEB RQID [facility] Last Admin: 04/18/18 12:40 Dose: 1 amp Atorvastatin Calcium (Lipitor -) 40 mg PO HS [facility] Last Admin: 04/17/18 21:43 Dose: 40 mg Carvedilol (Coreg -) 3.125 mg PO BID [facility] Last Admin: 04/18/18 11:36 Dose: 3.125 mg Chlorhexidine Gluconate (Hibiclens For Decolonization -) 1 applic TP HS [facility] Last Admin: 04/17/18 21:45 Dose: 1 applic Docusate Sodium (Colace -) 300 mg PO HS [facility] Last Admin: 04/17/18 21:43 Dose: 300 mg Furosemide (Lasix Injection -) 80 mg IVPUSH TID@0600,1200,1800 [facility] Last Admin: 04/18/18 11:42 Dose: 80 mg Heparin Sodium (Porcine) (Heparin -) 5,000 unit SQ TID [facility] Last Admin: 04/18/18 14:01 Dose: 5,000 unit Piperacillin Sod/Tazobactam (Sod 2.25 gm/ Dextrose) 50 mls @ 100 mls/hr IVPB Q8H-IV [facility]; Protocol Last Admin: 04/18/18 10:12 Dose: 100 mls/hr Insulin Aspart (Novolog Vial Sliding Scale -) 1 vial SQ ACHS [facility]; Protocol Last Admin: 04/18/18 11:43 Dose: 4 units Isosorbide Dinitrate (Isordil -) 20 mg PO BIDISORDIL [facility] Last Admin: 04/18/18 10:15 Dose: 20 mg Metoprolol Tartrate (Lopressor Injection -) 5 mg IVPUSH Q4H PRN PRN Reason: HYPERTENSION Nystatin (Nystop Powder -) 1 applic TP DAILY [facility] Last Admin: 04/18/18 10:15 Dose: 1 applic Senna (Senna -) 1 tab PO HS [facility] Last Admin: 04/17/18 21:44 Dose: 1 tab Timolol Maleate (Timoptic 0.5%) 1 drop OU BID [facility] Last Admin: 04/18/18 10:13 Dose: 1 drop - Objective Vital Signs: Vital Signs Temperature 98.2 F 04/18/18 13:58 Pulse Rate 112 H 04/18/18 13:58 Respiratory Rate 18 04/18/18 13:58 Blood Pressure 104/68 04/18/18 13:58 O2 Sat by Pulse Oximetry (%) 93 L 04/18/18 10:41 Constitutional: Yes: No Distress Eyes: Yes: WNL HENT: Yes: WNL Neck: Yes: WNL Cardiovascular: Yes: Regular Rate and Rhythm Respiratory: Yes: On Nasal O2, Poor Air Entry Gastrointestinal: Yes: WNL Genitourinary: Yes: Incontinence, Other Musculoskeletal: Yes: Muscle Weakness Edema: Yes Peripheral Pulses WNL: Yes Integumentary: Yes: WNL Wound/Incision: Yes: Clean/Dry Neurological: Yes: Unsteady Gait ...Motor Strength: LLE, RLE Psychiatric: Yes: WNL Labs: CBC, BMP 04/18/18 05:30 04/18/18 05:30 INR, PTT INR 1.04 (0.82-1.09) 04/08/18 15:40 Problem List - Problems (1) Acute exacerbation of COPD with asthma Code(s): J44.1 - CHRONIC OBSTRUCTIVE PULMONARY DISEASE W (ACUTE) EXACERBATION; J45.901 - UNSPECIFIED ASTHMA WITH (ACUTE) EXACERBATION (2) Acute on chronic systolic and diastolic heart failure, NYHA class 4 Code(s): I50.43 - ACUTE ON CHRONIC COMBINED SYSTOLIC AND DIASTOLIC HRT FAIL (3) Acute respiratory failure with hypoxia Code(s): J96.01 - ACUTE RESPIRATORY FAILURE WITH HYPOXIA (4) Diabetes Code(s): E11.9 - TYPE 2 DIABETES MELLITUS WITHOUT COMPLICATIONS (5) HTN (hypertension) Code(s): I10 - ESSENTIAL (PRIMARY) HYPERTENSION Qualifiers: Hypertension type: unspecified Qualified Code(s): I10 - Essential (primary ) hypertension (6) Hyperlipidemia Code(s): E78.5 - HYPERLIPIDEMIA, UNSPECIFIED (7) Morbid obesity Code(s): E66.01 - MORBID (SEVERE) OBESITY DUE TO EXCESS CALORIES (8) Rapid atrial fibrillation Code(s): I48.91 - UNSPECIFIED ATRIAL FIBRILLATION (9) Sleep apnea Code(s): G47.30 - SLEEP APNEA, UNSPECIFIED Assessment/Plan HD PER RENAL STARTING VASC FOR ACCESS SHILEY DVT PROPHYLAXIS PT EVAL 02 SUPPORT SSI/BGM CHECKS DIETARY CONSULT
[2018-04-18 15:53] VITALS: BMI 48.9
[2018-04-18] MEDS ORDERED: PT OWN MED DRAWER 7, Y5N ONE (17:44)
--- NOTE | 2018-04-18 18:17 | CON.ID ---
Consult Consult Specialty:: infectious diseases Referred by:: Reason for Consultation:: positive blood cx, - History of Present Illness History of Present Illness: patient who was admitted because of sob and now while examining has just coded and has been intubated now the history is taken from the charts 72 year old female with pmhx of CKD, CHF, COPD on home oxygen, and morbid obesity who presents was admitted with worsening shortness of breath. patient was admitted and placed on bipap and then was transferred to icu for further management. patient was worked up and on 04/08 patient had positive blood cx out of which one of them is positive for A.hemolyticum the other is still pending patient was devoid of any abx.Also as patient has been in the icu for some time and there are some findings in the lungs i was called to evaluate the patient - History Source History Provided By: Medical Record Limitations to Obtaining History: Clinical Condition - Past Medical History Cardio/Vascular: Yes: HTN Pulmonary: Yes: Asthma, COPD, Sleep Apnea Renal/: Yes: Renal Inusuff Musculoskeletal: Yes: Osteoarthritis Rheumatology: Yes: Gout Endocrine: Yes: Diabetes Mellitus - Past Surgical History Past Surgical History: Yes: - Alcohol/Substance Use Hx Alcohol Use: No - Smoking History Smoking history: Never smoked Have you smoked in the past 12 months: No Aproximately how many cigarettes per day: 0 Home Medications - Allergies Allergies/Adverse Reactions: Allergies Allergy/AdvReac Type Severity Reaction Status Date / Time No Known Allergies Allergy Verified 04/08/18 14:37 - Home Medications Home Medications: Ambulatory Orders Acetaminophen [Pain Relief] 650 mg PO ASDIR 04/08/18 Acetylcysteine Po/INH 20% [Mucomyst 20 Oral / INH Use Only*] 1 ml NEB ASDIR 07/18 Albuterol 2.5/Ipratropium 0.5 [Duoneb -] 1 amp NEB QID PRN 04/08/18 Budesonide/Formeterol Fumarate [SYMBICORT 160/4.5mcg -] 2 inh IH ASDIR 04/08/18 Diltiazem [Cardizem -] 60 mg PO ASDIR 04/08/18 Famotidine [Pepcid] 20 mg PO DAILY 04/08/18 Furosemide [Lasix] 80 mg PO DAILY 04/08/18 Mupirocin Ointment [Bactroban] 1 applic TP [facility] 04/08/18 Nystatin/Triamcin [Nystatin-Triamcinolone Cream] 1 applic TP [facility] 04/08/18 Polyethylene Glycol 3350 [Smoothlax] 17 gm PO ASDIR 04/08/18 Sennosides [Senno] 2 tab PO DAILY 04/08/18 Family Disease History - Family Disease History Family Disease History: [place]: Grandparent, Mother, Sister Review of Systems Unable to obtain ROS, reason: unable to obtain Physical Exam Vital Signs: Vital Signs Temperature 98.2 F 04/18/18 13:58 Pulse Rate 112 H 04/18/18 16:00 Respiratory Rate 18 04/18/18 16:00 Blood Pressure 94/62 04/18/18 16:00 O2 Sat by Pulse Oximetry (%) 93 L 04/18/18 10:41 Constitutional: Yes: Obese, Other Neck: Yes: Supple Cardiovascular: Yes: Regular Rate and Rhythm, Tachycardia Respiratory: Yes: Intubated, Mechanically Ventilated Gastrointestinal: Yes: Distention, Hypoactive Bowel Sounds Musculoskeletal: Yes: WNL Extremities: Yes: WNL Neurological: Yes: Other Psychiatric: Yes: Other Labs: CBC, BMP 04/18/18 05:30 04/18/18 05:30 Imaging - Results Chest X-ray: Report Reviewed, Image Reviewed Assessment/Plan Problem List - Problems (1) Acute exacerbation of COPD with asthma Code(s): J44.1 - CHRONIC OBSTRUCTIVE PULMONARY DISEASE W (ACUTE) EXACERBATION; J45.901 - UNSPECIFIED ASTHMA WITH (ACUTE) EXACERBATION (2) Acute on chronic systolic and diastolic heart failure, NYHA class 4 Code(s): I50.43 - ACUTE ON CHRONIC COMBINED SYSTOLIC AND DIASTOLIC HRT FAIL (3) Acute respiratory failure with hypoxia Code(s): J96.01 - ACUTE RESPIRATORY FAILURE WITH HYPOXIA (4) Diabetes Code(s): E11.9 - TYPE 2 DIABETES MELLITUS WITHOUT COMPLICATIONS (5) HTN (hypertension) Code(s): I10 - ESSENTIAL (PRIMARY) HYPERTENSION Qualifiers: Hypertension type: unspecified Qualified Code(s): I10 - Essential (primary ) hypertension (6) Hyperlipidemia Code(s): E78.5 - HYPERLIPIDEMIA, UNSPECIFIED (7) Morbid obesity Code(s): E66.01 - MORBID (SEVERE) OBESITY DUE TO EXCESS CALORIES (8) Rapid atrial fibrillation Code(s): I48.91 - UNSPECIFIED ATRIAL FIBRILLATION (9) Sleep apnea Code(s): G47.30 - SLEEP APNEA, UNSPECIFIED 10 coding plan continue to resucitate will add vanco if patient stabilizes then continue abx rest continue current mgmt and as per icu team cc time 40 min
[2018-04-18] MEDS ORDERED: NOREPINEPHRINE BITARTRATE 4 MG/4 ML ML IV ONE (18:19)
--- NOTE | 2018-04-18 18:27 | PROC ---
Intubation - Intubation Reason for Intubation: Other (cardiopulmonary arrest) Time of Intubation: 18:10 Intubation Method: orotracheal Blade used: Mac (4) Tube Size (cm): 7.5 Tube position @ lip (cm): 22 Tube position confirmed by: Direct visualization, CO2 detector, Breath sounds ( intubated with standard MAC4 blade and placement through vocal cords confirmed with glidescope view) Breath Sounds after Intubation: equal Post Intubation Xray: Yes (code still in progress;xray to be taken )
[2018-04-18] MEDS ORDERED: VANCOMYCIN 1 GM PREMIX - 1 GM/200 ML BAG IVPB ONE (18:30)
[2018-04-18] MEDS ORDERED: VASOPRESSIN 50 UNITS in SODIUM CHLORIDE 97.5 ML IVPB SCH (19:30)
--- NOTE | 2018-04-18 19:37 | RAPID ---
Physical Examination Vital Signs: Vital Signs Temperature 98.2 F 04/18/18 13:58 Pulse Rate 112 H 04/18/18 16:00 Respiratory Rate 18 04/18/18 16:00 Blood Pressure 94/62 04/18/18 16:00 O2 Sat by Pulse Oximetry (%) 93 L 04/18/18 10:41 Findings/Remarks: Code 99 was called for a patient at 6.04pm . Please refer to the code sheet for more information. Labs: CBC, BMP 04/18/18 05:30 04/18/18 05:30
--- NOTE | 2018-04-18 21:27 | PROC ---
Procedure Note Procedure: Addendum Following intubation (see prior note), pt. regained pulse for a brief time period. I was asked to stay to [facility] ine placement by resident. However, as resident was preparing for line placement, pt. coded again. ACLS/ CPR was resumed by team. I stayed to assist during code. I subsequently placed An intraosseous line. After EtOH prep to left tibia, 45mm, 15Ga IO cannula placed using EZ IO kit and drill. Positive blood return was noted and line was flushed easily. Total time spent with patient from start to finish was approximately 1 hour 20min.
[2018-04-18 21:46] VITALS: BP 134/54; PULSE 82
== END 2018-04-18 21:53 | disposition expired | DRG 208 ==
LOC: JER 14:17 → JERBED 17:32 → JICU 21:09
PROVIDERS: ADMIT Family Medicine; ATTEND Family Medicine
PROC: 5A09557 Assistance with Respiratory Ventilation, Greater than 96 Consecutive Hours, Continuous Positive Airway Pressure (ICD-10-PCS; principal; 2018-04-09)
PROC: 5A1935Z Respiratory Ventilation, Less than 24 Consecutive Hours (ICD-10-PCS; 2018-04-18)
PROC: 0CHY7BZ Insertion of Airway into Mouth and Throat, Via Natural or Artificial Opening (ICD-10-PCS; 2018-04-18)
PROC: 5A12012 Performance of Cardiac Output, Single, Manual (ICD-10-PCS; 2018-04-18)
DX: J96.01 Acute respiratory failure with hypoxia (principal); J18.9 Pneumonia, unspecified organism; I50.43 Acute on chronic combined systolic (congestive) and diastolic (congestive) heart failure; I13.0 Hypertensive heart and chronic kidney disease with heart failure and stage 1 through stage 4 chronic kidney disease, or unspecified chronic kidney disease; Z68.42 Body mass index [BMI] 45.0-49.9, adult; J98.11 Atelectasis; J44.1 Chronic obstructive pulmonary disease with (acute) exacerbation; N17.9 Acute kidney failure, unspecified; J96.02 Acute respiratory failure with hypercapnia; E66.01 Morbid (severe) obesity due to excess calories; E78.5 Hyperlipidemia, unspecified; I48.91 Unspecified atrial fibrillation; M19.90 Unspecified osteoarthritis, unspecified site; M10.9 Gout, unspecified; G47.33 Obstructive sleep apnea (adult) (pediatric); H40.9 Unspecified glaucoma; E11.22 Type 2 diabetes mellitus with diabetic chronic kidney disease; N18.9 Chronic kidney disease, unspecified; Z99.81 Dependence on supplemental oxygen
CPT/HCPCS: 36415; 36600; 71045-TC-FY; 76775-TC; 80048; 80053; 80061; 81003; 81015; 82570; 82803; 82962; 83036; 83605; 83721; 83735; 83880; 84100; 84156; 84443; 84484; 85025; 85027; 85610; 85730; 86850; 86900; 86901; 87040; 87086; 90670; 93005; 93010; 93306-TC; 93970-TC; 94640; 94660; 97162-GP; 99284-25; J1644; J7620